=== PATIENT | male | born 1965 | race Caucasian/White ===

== ENCOUNTER 2017-01-22 22:57 | Inpatient (IN) | payer MEDICARE, MEDICAID ==
[~2017-01-22] VITALS: Ht 180.3 cm; Wt 206.5 kg
--- NOTE | ~2017-01-22 | PR ---
[place], [place] PROGRESS NOTE NAME: RUTHIE MONTELONGO SR UNIT #: [id number] ROOM: 416 DOCTOR: JANA ALBERTO MD BIRTHDATE: [birth year] DOS: 01/24/2017 PULMONARY PROGRESS NOTE SUBJECTIVE: The patient has been doing better for the past 24 hours. The shortness of breath has been improving. The edema of the lower extremity was resolving. There were no symptoms of chest pain or any acute abdominal pain. The patient has been using the BiPAP. OBJECTIVE: VITAL SIGNS: Normal temperature, respiratory rate 18, heart rate 74, blood pressure 106/54-113/61. HEENT: Showed no new change. NECK: Supple. CARDIOVASCULAR: S1, S2 audible. LUNGS: Noted without any wheezing or crackles at the present time. The breaths are noted generally diminished bilaterally. ABDOMEN: Soft, nontender. EXTREMITIES: Shows resolving edema of the lower extremities. LABORATORY DATA: CBC: WBC count 19.1. Remaining CBC was normal. The BMP of patient this morning noted, glucose 172, carbon dioxide 34, remaining BMP was normal. IMPRESSION: 1. The patient with improvement has been continued for acute exacerbation of chronic obstructive pulmonary disease and acute bronchitis at the present time. 2. Improving acute hypercapnic and hypoxic respiratory failure as well. 3. Acute bronchitis. 4. Suspected obstructive sleep apnea disorder with history of morbid obesity. PLAN OF TREATMENT: Reduce the Solu-Medrol dose for the patient from Solu-Medrol 60 mg q.8 hours to 40 mg b.i.d. and reassess the patient closely for any rebound of the symptoms. If the patient does well, might be considered for home discharge possibly tomorrow. The patient was encouraged to use the BiPAP. Other supportive therapy, plan and management as well. Usual care. [place], [place] PROGRESS NOTE NAME: RUTHIE MONTELONGO SR UNIT #: [id number] ROOM: 416 DOCTOR: JANA ALBERTO MD BIRTHDATE: [birth year] JANA WEBSTER MD CM:PNTRANS [id number] JANA GARZA MD 01/24/17 1206 interface
--- NOTE | ~2017-01-22 | PN ---
[place], [place] PROGRESS NOTE NAME: RUTHIE MONTELONGO SR UNIT #: [id number] ROOM: 416 DOCTOR: DINESH ESPINO MD BIRTHDATE: [birth year] DATE: 01/24/17 CARDIOLOGY FOLLOWUP NOTE REASON FOR VISIT: Atrial flutter. HISTORY OF PRESENT ILLNESS: The patient is feeling better. Denies any chest pain, occasionally wearing CPAP for his sleep apnea. No PND, no orthopnea. No nausea, vomiting, diarrhea. No headache, no dizziness. No hematuria, dysuria. No fever and chills. REVIEW OF SYSTEMS: Review of the 8 systems negative except as mentioned above. RHYTHM STRIPS: The patient was in sinus rhythm. PHYSICAL EXAMINATION: VITAL SIGNS: Blood pressure 104/55, pulse 73, respirations 20. GENERAL: Alert, comfortable, in no acute distress. HEENT: Pupils are round and equal. No jaundice. The patient is wearing CPAP. NECK: Supple. No distended neck veins. No carotid bruit. CHEST: Nontender. LUNGS: Few scattered rhonchi, but good air entry bilaterally. HEART: Regular rhythm, no S3, no palpable thrills. ABDOMEN: Morbidly obese, bowel sounds normal. EXTREMITIES: Showed 1-2+ pitting edema. Distal pulses are palpable. SKIN: Warm and dry. No cyanosis, no clubbing. RECTAL: Deferred. GENITOURINARY: Deferred. IMPRESSION: 1. Paroxysmal atrial fibrillation and atrial flutter, currently in sinus rhythm. 2. Chronic diastolic heart failure. 3. Chronic obstructive pulmonary disease exacerbation. 4. Morbid obesity. 5. Sleep apnea. RECOMMENDATIONS: 1. Blood pressure and heart rate are stable. 2. Continue his current cardiac medications. 3. Cardiology will see as needed. [place], [place] PROGRESS NOTE NAME: RUTHIE MONTELONGO SR UNIT #: [id number] ROOM: 416 DOCTOR: DINESH SEPINO MD BIRTHDATE: [birth year] DINESH ESPINO MD CM:PNTRANS [id number] DINESH ESPINO MD 01/25/17 6003 MAME [email or web address].R
--- NOTE | ~2017-01-22 | PN ---
[place], [place] PROGRESS NOTE NAME: RUTHIE MONTELONGO SR [id number] UNIT #: [id number] ROOM: 416 DOCTOR: JANA ALBERTO MD BIRTHDATE: [birth year] DATE: 01/25/17 PULMONARY PROGRESS NOTE SUBJECTIVE: He has been noted with further reduction and improvement of respiratory symptoms of coughing and shortness of breath was resolving. The edema of the lower extremity has been improving, but not completely resolved. Denies symptoms of chest pain. OBJECTIVE: VITAL SIGNS: Showed normal temperature, respiratory rate 20, heart rate 58-66, blood pressure 94/56-116/88. Pulse oxygen saturation on 3 liters nasal cannula 94% saturation. HEENT: Examination showed no new change. NECK: Supple and obese. CARDIOVASCULAR SYSTEM: S1, S2 audible. LUNGS: Moderate decreased breath sounds and mild expiratory wheezing. No crackles, rhonchi or wheezing. ABDOMEN: Soft, nontender. EXTREMITIES: Still shows mild edema. LABORATORY DATA: The BMP of the patient was noted with glucose of 179, BUN 24, creatinine was normal, carbon dioxide 34. CBC: WBC count 13.5, hemoglobin 15.2, hematocrit 48.4, platelet count 163,000. IMPRESSION: 1. The patient who has been currently noted with acute congestive heart failure for the patient, which is improving with improving acute exacerbation of chronic obstructive pulmonary disease as well. 2. Improving acute hypercapnic and hypoxic respiratory failure and acute bronchitis. PLAN OF TREATMENT: Continue diuretic, bronchodilators, oxygen supplementation, and corticosteroids. Discharge planning for the patient if need to be done, it would be done for home oxygen assessment if not done so previously. The patient need to be assessed for sleep apnea disorder as well. Other supportive therapy, plan of management to be continued. Usual care. JANA ALBERTO MD CM:PNTRANS [id number] JANA GARZA MD 01/29/17 1440 MAME [email or web address].R
--- NOTE | ~2017-01-22 | PN ---
[place], [place] PROGRESS NOTE NAME: RUTHIE MONTELONGO SR UNIT #: [id number] ROOM: 416 DOCTOR: DINESH ESPINO MD BIRTHDATE: [birth year] DATE: 01/24/17 CARDIOLOGY FOLLOWUP NOTE REASON FOR VISIT: Atrial flutter. HISTORY OF PRESENT ILLNESS: The patient is feeling better. Denies any chest pain, occasionally wearing CPAP for his sleep apnea. No PND, no orthopnea. No nausea, vomiting, diarrhea. No headache, no dizziness. No hematuria, dysuria. No fever and chills. REVIEW OF SYSTEMS: Review of the 8 systems negative except as mentioned above. RHYTHM STRIPS: The patient was in sinus rhythm. PHYSICAL EXAMINATION: VITAL SIGNS: Blood pressure 104/55, pulse 73, respirations 20. GENERAL: Alert, comfortable, in no acute distress. HEENT: Pupils are round and equal. No jaundice. The patient is wearing CPAP. NECK: Supple. No distended neck veins. No carotid bruit. CHEST: Nontender. LUNGS: Few scattered rhonchi, but good air entry bilaterally. HEART: Regular rhythm, no S3, no palpable thrills. ABDOMEN: Morbidly obese, bowel sounds normal. EXTREMITIES: Showed 1-2+ pitting edema. Distal pulses are palpable. SKIN: Warm and dry. No cyanosis, no clubbing. RECTAL: Deferred. GENITOURINARY: Deferred. IMPRESSION: 1. Paroxysmal atrial fibrillation and atrial flutter, currently in sinus rhythm. 2. Chronic diastolic heart failure. 3. Chronic obstructive pulmonary disease exacerbation. 4. Morbid obesity. 5. Sleep apnea. RECOMMENDATIONS: 1. Blood pressure and heart rate are stable. 2. Continue his current cardiac medications. 3. Cardiology will see as needed. [place], [place] PROGRESS NOTE NAME: RUTHIE MONTELONGO SR UNIT #: [id number] ROOM: 416 DOCTOR: DINESH ESPINO MD BIRTHDATE: [birth year] DINESH ESPINO MD CM:PNTRANS [id number] DINESH ESPINO MD 01/29/17 1442 MAME [email or web address].R
--- NOTE | ~2017-01-22 | CON ---
[place], [place] REPORT OF CONSULTATION NAME: RUTHIE MONTELONGO SR [id number] UNIT #: [id number] ROOM: 416 DOCTOR: JANA ALBERTO MD BIRTHDATE: [birth year] DOS: 01/23/2017 PULMONARY CONSULTATION EVALUATION AND MANAGEMENT REASON FOR CONSULTATION: To assess the patient for ongoing acute exacerbation of COPD with acute respiratory failure. HISTORY OF PRESENT ILLNESS: This is a 51-year-old male who has been admitted to the hospital under care of hospitalist service for this morning. The patient has been admitted to the hospital and with reported symptoms of having increased symptoms of shortness of breath for this patient occurring for the past couple of days. The symptoms were associated with significant chest tightness. Shortness of breath was occurring at rest as well. The patient denies any symptoms of fever or chills. He does complain of symptoms of significant wheezing occurred with this current symptom. The patient has been currently admitted to the hospital and has been managed for the current treatment of acute exacerbation of COPD. REVIEW OF SYSTEMS: For this patient was noted as, CONSTITUTIONAL SYMPTOMS: He does complain of symptoms of fatigue and tiredness. Denies symptoms of fever or chills. EYES: Denies any burning, redness, or tenderness. EARS, NOSE, THROAT SYMPTOMS: No sore throat, hoarseness, otalgia, or postnasal drainage. CARDIOVASCULAR SYSTEM: The patient was noted with chronic edema of the lower extremities. Denies any anginal pain or other palpitations. GASTROINTESTINAL SYMPTOMS: Denies dysphagia, nausea, vomiting, diarrhea, abdominal pain, hematemesis, or melena. MUSCULOSKELETAL: Denies acute joint pain, redness, or tenderness. SKIN: Denies any lesions or rashes. CENTRAL NERVOUS SYSTEM: No dizziness, headache, diplopia, syncopal episode, seizures or tingling sensation of the extremities. Remaining systems were reviewed with the patient, they were noted all negative. PAST MEDICAL HISTORY: The patient was known with history of, 1. History of centrilobular emphysema. 2. History of uncomplicated moderate persistent bronchial asthma. 3. History of chronic severe morbid obesity. 4. Chronic hypoxic respiratory failure with the dependency on oxygen. 5. Atrial fibrillation with anticoagulation and acute congestive heart failure with diastolic dysfunction. 6. Hypertriglyceridemia. 7. Hypercholesterolemia back. SURGICAL HISTORY: Noted with history of tonsillectomy as a child. 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 Denies any history of chronic alcohol dependence. He does have 3 children. Smoking was noted for the patient since teenager about [age] [place], [place] REPORT OF CONSULTATION NAME: RUTHIE MONTELONGO SR UNIT #: [id number] ROOM: 416 DOCTOR: JANA ALBERTO MD BIRTHDATE: [birth year] packs of cigarettes per day and stated that he has not been smoking cigarettes a week ago. FAMILY HISTORY: The patient was noted with history of cancer of the throat in the father and some kind of cancer in the mother has been known previously. Both parents have been . MEDICATIONS: The current administered medications for the patient noted as use of Lipitor, Cardizem, Coreg, Effexor, Dulera, Protonix, Eliquis, Lasix intravenously 40 mg b.i.d., Spiriva, DuoNeb, Solu-Medrol 60 mg every 8 hours, Cardizem drip for this patient's atrial fibrillation with rapid ventricular response management, Levaquin, and other p.r.n. medications administration. DRUG ALLERGY HISTORY: The patient was noted as no known drug allergies. PHYSICAL EXAMINATION: GENERAL: This is a 51-year-old male who has been currently noted to be awake and alert using the oxygen supplementation nasal cannula, has used the BiPAP earlier. His height was recorded by the nursing staff at the time of the current admission with height of 5 feet 11 inches, weight of 452 pounds, BMI 63. VITAL SIGNS: Blood pressure of the patient was recorded as 150/72-112/65. Heart rate of the patient was recorded as highest of beats per minute atrial fibrillation, currently noted 73. Temperature 98.3 degrees Fahrenheit to 100 degrees Fahrenheit. Respiratory rate recorded is 16-30. The intake for the patient is 990 mL, output 450 mL since admission. Pulse ox saturation on 4 liters nasal cannula 96% saturation recorded. HEENT: Examination shows head was atraumatic. Eyes nonicterus. Chronic obesity. NECK: Supple. Severe reduced posterior pharyngeal space. CARDIOVASCULAR SYSTEM: S1, S2 audible. LUNGS: The patient was noted without any crackles. Diffuse expiratory wheezing was present. ABDOMEN: Noted soft with severe morbid obesity. EXTREMITIES: Shows edema 2+ of the lower extremities. LABORATORY DATA: PT/INR for the patient 01/22 was normal. The chest x-ray 1 view limited study for the patient because of large body habitus, noted small bilateral pleural fluid, basilar areas of atelectasis suspected. CMP of 01/22 on admission for the patient in the Emergency Room, glucose 212, remaining CMP was normal. CK-MB and troponin for this patient, which were done for the patient yesterday and this morning so far noted normal results. The INR this morning noted normal. CBC this morning, WBC count 20.5, hemoglobin, hematocrit and platelet count was normal. Chest x-ray which was repeated again, 1 view for the patient this morning was noted with resolution of the current pleural fluid, basilar areas of atelectasis. Arterial blood gas for the patient that was done for this patient this morning for the patient shows pH of 7.41, pCO2 of 44, pO2 of 58.1. IMPRESSION: 1. The patient who has been currently admitted to the hospital with acute [place], [place] REPORT OF CONSULTATION NAME: RUTHIE MONTELONGO SR UNIT #: [id number] ROOM: [facility] DOCTOR: ELEANOR GARZA [facility] BIRTHDATE: [birth year] hypoxic respiratory failure, chronic hypoxic respiratory failure and acute congestive heart failure for the patient with atrial fibrillation and rapid ventricular response. 2. Acute exacerbation of chronic obstructive pulmonary disease for the patient was also noted concomitantly. 3. Chronic anticoagulation. 4. Atrial fibrillation with rapid ventricular response. 5. History of congestive heart failure with diastolic dysfunction. 6. Chronic heavy nicotine dependence. 7. Clinical suspicion of obstructive sleep apnea disorder, would be requiring further assessment. PLAN OF TREATMENT: The patient will be continued on the current plan of management at this time as ongoing. Solu-Medrol dose will be continued the same at this time. Bronchodilator for the patient will be changed from the DuoNeb for this patient to albuterol sulfate because of the use of the concomitant Spiriva inhaler to prevent any drug interaction. Continue medical management of atrial fibrillation with rapid ventricular response for the patient with intravenous Cardizem and other medications intake. Usual care, other supportive plan of management. Supportive care, other therapy, plan of treatment. DVT prophylaxis will be continued with the use of the Eliquis. The patient was encouraged to continue to remain free of any tobacco use in future as well. Sputum for Gram stain and culture could be done if the patient is able to expectorate any sputum. Thanks for allowing me to participate in the care of this patient. JANA WEBSTER MD CM:CONSTR:REPORT OF CONSULTATION 1223 01/24/17 0129 interface
[~2017-01-22 22:57] MED LIST: .; ALBUTEROL2.5 MG/0.5 INH; ARICEPT10 M1 PO; ARTIFICIAL TEAR15 ML OP; ASPIRIN81 M1 PO; ATORVASTATIN CALCIUM PO; B12,B-12,B 12500 MC1 PO; BACTRIM DS 8001 TA1 PO; CIPRO500 MG PO; COLACE-T100 MG PO; COLACE100 MG PO; COREG25 MG PO; COREG3.125 MG PO; CORTISPORIN 1%-10 M1 OT; COUMADIN PO; CRESTOR20 M1 PO; CRESTOR20 MG; CRESTOR20 MG PO; CUBICIN500 MG IV; Coumadin10 MG PO; DILTIAZEM HYDR300 MG PO; DOXYCYCLINE100 M3 PO; EFFEXOR-XR75 MG PO; ELIQUIS5 M1 PO; FLEXERIL5 MG PO; FOLIC ACID1 MG PO; GUAFENESIN400 MG PO; HYDROCODONE BIT1 T11 PO; HYDROCODONE BIT1 T28 PO; KLOR-CON M2020 ME1 PO; LASIX40 MG PO; LEVAQUIN750 M1 PO; LISINOPRIL5 MG PO; LUBRICATING TP; MEDROL DOSEPAK4 MG PO; MUCINEX ER600 MG PO; MUCUS RELIEF400 MG PO; NAPROSYN500 MG PO; NATURE'S BLEND F1 MG PO; NYSTATIN OINTME30 GM T; OMEPRAZOLE20 MG PO; OXYGEN NAS; POTASSIUM CHLO10 ME3 PO; POTASSIUM CHLO20 ME3 PO; POTASSIUM20 MEQ PO; PREDNISONE10 MG PO; PREDNISONE20 M1 PO; PRILOSEC40 M1 PO; PRILOSEC40 MG PO; SYMBICORT1 AER IH; VENLAFAXINE37.5 M1 PO; VENLAFAXINE37.5 MG PO; VIAGRA100 MG PO; VIAGRA50 MG PO; VICO75300 PO; VICODIN 500 MG-1 TAB PO; VITAMIN D5000 IU PO; Ventolin 02.5 MG/3 M INH; ZANTAC150 MG PO
[2017-01-22 23:01] VITALS: BP 120/62
[2017-01-22] MEDS ORDERED: LIPITOR80 MG PO (23:08)
[2017-01-22] MEDS ORDERED: SPIRIVA18 MCG PO (23:13)
[2017-01-22] MEDS ORDERED: LOTRIMIN 1%15 GM T (23:15)
[2017-01-23] VITALS (14 sets, daily range): BP systolic 108–171; BP diastolic 47–112
[2017-01-23 00:02] LABS: BASO # 0.1 10*3/uL (0.0-0.1); BASO % 0.4 % (0.0-1.0); EOS % 0.1 % (1.0-4.0); HEMATOCRIT 50.5 % (42.0-52.0); HEMOGLOBIN 16.2 g/dl (14.0-18.0); IG # 0.3 10*3/uL (0.0-0.1); LYMPH # 0.8 10*3/uL (1.3-4.4); LYMPH % 3.9 % (27.0-41.0); MEAN CELL VOLUME 91.3 fl (80.0-94.0); MEAN CORPUSCULAR HGB 29.3 pg (27.0-31.0); MEAN CORPUSCULAR HGB CONC 32.1 g/dl (33.0-37.0); MEAN PLATELET VOLUME 10.9 fl (9.6-12.3); MONO % 5.3 % (3.0-9.0); NEUT # 17.4 10*3/uL (2.3-7.9); PLATELET COUNT AUTOMATED 152 10*3/uL (130-400); RED BLOOD COUNT 5.53 10*6/uL (4.50-5.90); RED CELL DISTRI WIDTH 13.2 % (0-14.5); WHITE BLOOD COUNT 19.5 10*3/uL (4.8-10.8)
[2017-01-23 00:15] LABS: INTERNATIONAL NORM RATIO 1.1 (2.0-3.5); PROTHROMBIN TIME 11.3 SECONDS (9.0-12.4)
[2017-01-23 00:57] LABS: ALBUMIN 3.2 gm/dl (3.1-4.5); ALKALINE PHOSPHATASE 109 U/L (45-117); BILIRUBIN, TOTAL 0.7 mg/dl (0.2-1.0); BUN 11 mg/dl (7-24); CARBON DIOXIDE 27 mmol/L (21-32); CHLORIDE 102 mmol/L (98-107); EST GLOM FILT AFRICAN AMERICAN > 60 ml/min; GLUCOSE 212 mg/dL (65-99); MAGNESIUM 1.8 mg/dL (1.5-2.1); POTASSIUM 3.9 mmol/L (3.5-5.1); SGOT/AST 23 IU/L (3-35); SGPT/ALT 34 U/L (12-78); SODIUM 139 mmol/L (136-145); TOTAL PROTEIN 6.6 gm/dL (6.4-8.2)
[2017-01-23 00:58] LABS: TROPONIN I 0.015 ng/ml (<0.045)
[2017-01-23 01:18] LABS: ABG BASE EXCESS 3.1 mmol/L (-2.0-2.0); ABG CO2 CONTENT 29.3 mmol/L (23-27); ABG HCO3 27.9 mmol/l (22-26); ARTERIAL BLOOD GAS PH 7.417 (7.35-7.45); ARTERIAL BLOOD GAS PO2 58.1 mmHg (80-90)
[2017-01-23] MEDS ORDERED: Lasix80 MG PO (02:50)
[2017-01-23] MEDS ORDERED: SYMBICORT1 AE1 INH (04:19)
[2017-01-23 05:36] LABS: HEMATOCRIT 51.5 % (42.0-52.0); HEMOGLOBIN 16.3 g/dl (14.0-18.0); MEAN CELL VOLUME 92.3 fl (80.0-94.0); MEAN CORPUSCULAR HGB 29.2 pg (27.0-31.0); MEAN CORPUSCULAR HGB CONC 31.7 g/dl (33.0-37.0); MEAN PLATELET VOLUME 10.9 fl (9.6-12.3); PLATELET COUNT AUTOMATED 165 10*3/uL (130-400); RED BLOOD COUNT 5.58 10*6/uL (4.50-5.90); RED CELL DISTRI WIDTH 13.2 % (0-14.5); WHITE BLOOD COUNT 20.5 10*3/uL (4.8-10.8)
[2017-01-23 05:39] LABS: CKMB 1.9 ng/ml (0.5-3.6); CPK 155 U/L (39-308); TROPONIN I < 0.015 ng/ml (<0.045)
[2017-01-23 05:58] LABS: ALBUMIN 3.2 gm/dl (3.1-4.5); BILIRUBIN, TOTAL 0.8 mg/dl (0.2-1.0); BUN 12 mg/dl (7-24); CARBON DIOXIDE 29 mmol/L (21-32); CHLORIDE 101 mmol/L (98-107); GLUCOSE 199 mg/dL (65-99); MAGNESIUM 1.9 mg/dL (1.5-2.1); POTASSIUM 3.9 mmol/L (3.5-5.1); SODIUM 139 mmol/L (136-145)
[2017-01-23 06:01] LABS: HEMOGLOBIN A1c 6.4 % (4.8-5.6)
[2017-01-23 06:07] LABS: ALKALINE PHOSPHATASE 107 U/L (45-117); CHOLESTEROL 129 mg/dL (<200); EST GLOM FILT AFRICAN AMERICAN > 60 ml/min; FREE T4 1.04 ng/dl (0.76-1.46); HDL CHOLESTEROL 36 mg/dl (40-60); LDL CHOLESTEROL 77 mg/dL (9-159); PHOSPHOROUS 2.2 mg/dL (2.5-4.9); SGOT/AST 21 IU/L (3-35); SGPT/ALT 33 U/L (12-78); THYROID STIM HORMONE (HS) 0.786 uIU/ml (0.358-4.75); TRIGLYCERIDES 78 mg/dl (<150); VLDL CHOLESTEROL 16 mg/dL (6-40)
[2017-01-23 06:18] LABS: INTERNATIONAL NORM RATIO 1.1 (2.0-3.5); PROTHROMBIN TIME 11.6 SECONDS (9.0-12.4)
[2017-01-23 06:40] LABS: BASOPHIL # 0.2 10*3/uL (0-0.1); BASOPHILS 1 % (0-1); LYMPHOCYTE # 0.8 10*3/uL (1.3-4.4); MONOCYTE # 0.6 10*3/uL (0.1-1.0); NEUTROPHIL # 18.9 10*3/uL (2.3-7.9); NEUTROPHILS 92 % (47-73); PLATELET SUFFICIENCY NORMAL (NORMAL); TOTAL CELLS COUNTED 100 #CELLS
[2017-01-23 07:11] LABS: FOLIC ACID 9.41 ng/mL (>5.38)
[2017-01-23 12:10] LABS: CPK 180 U/L (39-308)
[2017-01-23 12:17] LABS: TROPONIN I < 0.015 ng/ml (<0.045)
[2017-01-23 18:31] LABS: CPK 225 U/L (39-308)
[2017-01-23 18:32] LABS: TROPONIN I < 0.015 ng/ml (<0.045)
[2017-01-24] VITALS: BP 113/61
[2017-01-24 06:06] LABS: BUN 21 mg/dl (7-24); CARBON DIOXIDE 34 mmol/L (21-32); CHLORIDE 102 mmol/L (98-107); EST GLOM FILT AFRICAN AMERICAN > 60 ml/min; GLUCOSE 172 mg/dL (65-99); PHOSPHOROUS 3.2 mg/dL (2.5-4.9); POTASSIUM 4.1 mmol/L (3.5-5.1); SODIUM 142 mmol/L (136-145)
[2017-01-24 06:10] LABS: BASO % 0.1 % (0.0-1.0); HEMATOCRIT 47.5 % (42.0-52.0); HEMOGLOBIN 14.8 g/dl (14.0-18.0); IG # 0.1 10*3/uL (0.0-0.1); LYMPH # 1.3 10*3/uL (1.3-4.4); LYMPH % 6.9 % (27.0-41.0); MEAN CELL VOLUME 93.5 fl (80.0-94.0); MEAN CORPUSCULAR HGB 29.1 pg (27.0-31.0); MEAN CORPUSCULAR HGB CONC 31.2 g/dl (33.0-37.0); MEAN PLATELET VOLUME 11.4 fl (9.6-12.3); MONO # 1.5 10*3/uL (0.1-1.0); MONO % 7.6 % (3.0-9.0); NEUT # 16.2 10*3/uL (2.3-7.9); NEUT % 84.7 % (47.0-73.0); PLATELET COUNT AUTOMATED 166 10*3/uL (130-400); RED BLOOD COUNT 5.08 10*6/uL (4.50-5.90); RED CELL DISTRI WIDTH 13.4 % (0-14.5); WHITE BLOOD COUNT 19.1 10*3/uL (4.8-10.8)
[2017-01-24 08:00] VITALS: BP 106/54
[2017-01-24 12:00] VITALS: BP 104/55
[2017-01-24 16:00] VITALS: BP 116/48
[2017-01-24 20:00] VITALS: BP 103/53
[2017-01-25] VITALS: BP 94/56
[2017-01-25 06:20] LABS: BASO % 0.1 % (0.0-1.0); HEMATOCRIT 48.4 % (42.0-52.0); HEMOGLOBIN 15.2 g/dl (14.0-18.0); IG # 0.1 10*3/uL (0.0-0.1); LYMPH # 1.2 10*3/uL (1.3-4.4); MEAN CELL VOLUME 93.8 fl (80.0-94.0); MEAN CORPUSCULAR HGB 29.5 pg (27.0-31.0); MEAN CORPUSCULAR HGB CONC 31.4 g/dl (33.0-37.0); MEAN PLATELET VOLUME 11.5 fl (9.6-12.3); MONO # 0.5 10*3/uL (0.1-1.0); MONO % 3.8 % (3.0-9.0); NEUT # 11.7 10*3/uL (2.3-7.9); NEUT % 86.5 % (47.0-73.0); PLATELET COUNT AUTOMATED 163 10*3/uL (130-400); RED BLOOD COUNT 5.16 10*6/uL (4.50-5.90); RED CELL DISTRI WIDTH 13.6 % (0-14.5); WHITE BLOOD COUNT 13.5 10*3/uL (4.8-10.8)
[2017-01-25 06:50] LABS: BUN 24 mg/dl (7-24); CARBON DIOXIDE 36 mmol/L (21-32); CHLORIDE 100 mmol/L (98-107); EST GLOM FILT AFRICAN AMERICAN > 60 ml/min; GLUCOSE 179 mg/dL (65-99); POTASSIUM 4.3 mmol/L (3.5-5.1); SODIUM 140 mmol/L (136-145)
[2017-01-25 08:00] VITALS: BP 116/68
[2017-01-25 12:00] VITALS: BP 107/69
[2017-01-25] MEDS ORDERED: ALBUTEROL SULF0.5 M1 NEB ×2 (14:11→14:12)
[2017-01-25] MEDS ORDERED: LEVAQUIN500 M2 PO (14:11)
[2017-01-25] MEDS ORDERED: ATROVENT I0.5 MG/2.1 INH (14:11)
[2017-01-25] MEDS ORDERED: B12100 MC1 PO (14:11)
[2017-01-25] MEDS ORDERED: PREDNISONE10 MG PO (14:11)
[2017-01-25] MEDS ORDERED: DILTIAZEM HYDR180 M2 PO (14:11)
== END 2017-01-25 14:55 | disposition home or self-care (01) | DRG 871 ==
LOC: ED 22:57 → EDHOLD 01-23 01:40 → ICCU 01-23 01:40 → 4E 01-23 01:40 → ICCU 01-23 01:52 → 4E 01-23 15:38
PROVIDERS: Emergency Medicine Emergency Medical Services; Internal Medicine; Internal Medicine Hospice and Palliative Medicine; Student in an Organized Health Care Education/Training Program
PROC: 5A09357 Assistance with Respiratory Ventilation, Less than 24 Consecutive Hours, Continuous Positive Airway Pressure (ICD-10-PCS; principal; 2017-01-23)
DX: A41.9 Sepsis, unspecified organism (principal); J18.9 Pneumonia, unspecified organism; J96.21 Acute and chronic respiratory failure with hypoxia; I11.0 Hypertensive heart disease with heart failure; D68.59 Other primary thrombophilia; I48.92 Unspecified atrial flutter; I50.32 Chronic diastolic (congestive) heart failure; Z68.43 Body mass index [BMI] 50.0-59.9, adult; J44.0 Chronic obstructive pulmonary disease with (acute) lower respiratory infection; J44.1 Chronic obstructive pulmonary disease with (acute) exacerbation; R73.9 Hyperglycemia, unspecified; G89.29 Other chronic pain; M54.9 Dorsalgia, unspecified; E78.00 Pure hypercholesterolemia, unspecified; G47.33 Obstructive sleep apnea (adult) (pediatric); I48.0 Paroxysmal atrial fibrillation; F17.210 Nicotine dependence, cigarettes, uncomplicated; Z80.41 Family history of malignant neoplasm of ovary; Z80.0 Family history of malignant neoplasm of digestive organs; E66.01 Morbid (severe) obesity due to excess calories; Z99.81 Dependence on supplemental oxygen; J20.9 Acute bronchitis, unspecified; G51.0 Bell's palsy; E53.8 Deficiency of other specified B group vitamins; Z71.6 Tobacco abuse counseling

== ENCOUNTER → 2017-02-27 | Outpatient (CLI) | payer OTHER, MEDICARE, MEDICAID ==
[~2017-02-27] MED LIST changes: +ALBUTEROL SULF0.5 M1 NEB; +ATROVENT I0.5 MG/2.1 INH; +B12100 MC1 PO; +DILTIAZEM HYDR180 M2 PO; +LEVAQUIN500 M2 PO; +LIPITOR80 MG PO; +LOTRIMIN 1%15 GM T; +Lasix80 MG PO; +SPIRIVA18 MCG PO; +SYMBICORT1 AE1 INH
== END ==
LOC: US 07:30
DX: I71.4 Abdominal aortic aneurysm, without rupture (principal)

== ENCOUNTER → 2017-03-14 | Outpatient (CLI) | payer MEDICARE, MEDICAID | END | disposition home or self-care (01) | LOC: RESCLI 02:26 | DX: I11.0 Hypertensive heart disease with heart failure (principal); J44.9 Chronic obstructive pulmonary disease, unspecified; I50.30 Unspecified diastolic (congestive) heart failure; E53.8 Deficiency of other specified B group vitamins; E66.09 Other obesity due to excess calories; R26.89 Other abnormalities of gait and mobility; J84.10 Pulmonary fibrosis, unspecified; J43.8 Other emphysema; M54.5 Low back pain; M19.90 Unspecified osteoarthritis, unspecified site; G89.29 Other chronic pain; Z68.44 Body mass index [BMI] 60.0-69.9, adult; Z99.81 Dependence on supplemental oxygen ==

== ENCOUNTER → 2017-05-03 | Outpatient (CLI) | payer MEDICARE, MEDICAID | END | disposition home or self-care (01) | LOC: CP 00:09 | DX: J44.9 Chronic obstructive pulmonary disease, unspecified (principal) ==

== ENCOUNTER 2017-07-22 13:39 | Inpatient (IN) | payer OTHER ==
[~2017-07-22] VITALS: Ht 182.8 cm; Wt 209.2 kg
--- NOTE | ~2017-07-22 | CON ---
[place], [place] REPORT OF CONSULTATION NAME: RUTHIE MONTELONGO SR [facility] #: [id number] UNIT #: [id number] ROOM: 416 DOCTOR: JANA ALBERTO MD BIRTHDATE: [birth year] DOS: 07/23/2017 REASON FOR CONSULTATION: Assess the patient's acute respiratory failure. HISTORY OF PRESENT ILLNESS: This is a 52-year-old white male known to me from the past with history of COPD, hypoxic respiratory failure, obstructive sleep apnea disorder and hypercapnia. The patient presented to the hospital, the patient stated that he has developed pain which were described in the left breast area radiating upward towards the shoulder. The pain was described [id number], he was concerned about that. The patient stated that he used to chronic wheezing, which has been present for this patient as well along with the current symptoms. He does have a cough without any sputum expectoration. The patient denies symptoms of hemoptysis. He has been currently treated for the exacerbation of COPD and other medical problem on this admission since 07/22/2017. REVIEW OF SYSTEMS: CONSTITUTIONAL: Fatigue and tiredness were described without any symptoms of fever or chills. EYES: Denies any burning, redness, or tenderness. EARS, NOSE, THROAT: No sore throat, hoarseness, otalgia, postnasal drainage or epistaxis. CARDIOVASCULAR: Denies anginal pain or others noted history of chronic intermittent edema of the lower extremity, which has been noted in the past when appeared to be severe. GASTROINTESTINAL: Severe morbid obesity without any abnormal weight loss, dysphagia, nausea, vomiting, diarrhea, abdominal pain, hematemesis, melena, or hematochezia. SKIN: Denies any lesions or rashes. Chronic venous stasis pigmentation as well of the lower extremities. GENITOURINARY: Denies dysuria, suprapubic pain, hematuria. MUSCULOSKELETAL: Chronic pain for this patient without any acute redness or tenderness, any joints described. CENTRAL NERVOUS SYSTEM: Denies dizziness, headache, diplopia or syncopal episodes. Remaining systems were reviewed with the patient, they were noted all negative. PAST MEDICAL HISTORY: Noted from last hospitalization in 01/2017 for the medical management of acute exacerbation of COPD, respiratory failure and other problems. 1. Severe centrilobular emphysema and acute chronic hypercapnic and hypoxic respiratory failure. 2. Obstructive sleep apnea disorder. 3. Congestive heart failure, diastolic dysfunction. 4. Noncompliance with the treatment of chronic nicotine dependence. 5. History of uncomplicated moderate persistent bronchial asthma. 6. Atrial fibrillation for this patient as well. 7. Hyperlipidemia. 8. Intervertebral disk disease of the lower back as well. [place], [place] REPORT OF CONSULTATION NAME: RUTHIE MONTELONGO SR UNIT #: [id number] ROOM: 416 DOCTOR: JANA ALBERTO MD BIRTHDATE: [birth year] PAST SURGICAL HISTORY: Tonsillectomy. SOCIAL HISTORY: The patient is . 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 Denies history of alcohol use or illicit drugs. The patient has 3 children. Smoking was noted since age of 14 or 15 and smoked up to 4 packs of cigarettes per day, stating he has been currently smoking about a pack of cigarettes per day. FAMILY HISTORY: Noted with father from complication related to the throat cancer. Mother also from some unknown kind of cancer. MEDICATIONS: The current administered medications noted: 1. ____ nicotrol inhaler. 2. Eliquis 5 mg b.i.d. 3. Mucinex 1200 mg b.i.d. 4. Solu-Medrol 60 mg q. 8 hours. 5. DuoNeb q. 4 hours while awake. 6. Levaquin 750 mg IV daily. Other p.r.n. medications also administered. DRUG ALLERGIES: No known drug allergies. PHYSICAL EXAMINATION: GENERAL: This is a 52-year-old white male who has been currently sitting on side of the bed. Using oxygen supplementation with the nasal cannula. VITAL SIGNS: The patient's height was recorded by the nursing staff as 6 feet, weight of 460 pounds, BMI greater than 60. Normal temperature since admission, respiratory rate 20-26, heart rate of 105-132 with atrial fibrillation, rapid ventricular response, blood pressure 156/80-109/61. The intake is 3020 mL, output 1200 mL, positive 1.812 liters. Pulse ox saturation on 3 liters nasal cannula was 92% on admission on room air 86% saturation. HEENT: Severe obesity for this patient noted neck was supple. Severe reduced posterior pharyngeal space, high tongue base and crowding of soft tissue structures. NECK: Supple and obese. CARDIOVASCULAR SYSTEM: S1, S2 is audible. LUNGS: The patient noted with generalized reduction of the breath sounds was noted bilaterally with expiratory wheezing. No crackles. ABDOMEN: Noted severe morbid obesity. EXTREMITIES: Shows chronic edema, which appeared to be lymphedema of the lower extremity, possibly superimposed acute edema cannot be excluded. Visible skin shows venous stasis pigmentation of the lower extremities. No abnormal lesions or ulcers. CENTRAL NERVOUS SYSTEM: Cranial nerves 2-12 intact. MUSCULOSKELETAL: No acute deformities. LABORATORY DATA: CBC of 07/22/2017, WBC count 12.2, hemoglobin 17, hematocrit 55.1, platelet count was normal. PT/PTT was noted as normal. PT/PTT LDH was noted 2.2. LDH were noted elevated up to 4.2 and then 3.2. CMP for this patient, which was noted on 07/22/2017 showed glucose 148, BUN and creatinine [place], [place] REPORT OF CONSULTATION NAME: RUTHIE MONTELONGO SR UNIT #: [id number] ROOM: 416 DOCTOR: ELEANOR GARZA MD,JANA BIRTHDATE: [birth year] were normal. CO2 of 33. Alkaline phosphatase 134. ProBNP is 620. CBC on 07/23/2017 shows hemoglobin 16, hematocrit 52.3, platelet count normal. WBC count normal. PT/PTT today was normal. CMP this morning glucose 317, BUN and creatinine was normal. Phosphorus 2.4. Arterial blood gas on 3 liters, pH of 7.34, pCO2 of 54, pO2 of 65.5. The chest x-ray one-view for the patient that was a limited study because of large body habitus, was noted without any gross pulmonary infiltration. IMPRESSION: 1. The patient will be currently admitted to the hospital noted with acute severe hypercapnic hypoxic respiratory failure, chronic hypercapnia and hypoxia. 2. Acute severe exacerbation of chronic obstructive pulmonary disease. 3. Lactic acidosis may be related to use of the bronchodilators as well. 4. The patient with edema, which has ____ been noted chronic lymphedema of the lower extremities as well. 5. History of noncompliance and chronic nicotine dependence as well. Use of oxygen remained high risk of injury with fire because of the use of tobacco products and oxygen. 6. Morbid obesity. 7. Obesity hypoventilation syndrome. The patient would be considered with obstructive sleep apnea disorder, which has been already diagnosed. 8. Acute bronchitis. The patient noted may be viral in origin as well. 9. Pain in the left chest. The patient appeared to be musculoskeletal. Cardiac enzyme and other markers still far noted negative, not suggestive of any myocardial infarction. PLAN OF MANAGEMENT: Avoid any excessive fluid administration for this patient as well. Consider diuretic therapy to improve the edema of lower extremities. Obtain a venous Doppler of the lower extremities to rule out deep venous thrombosis as well. The patient will be ordered the BiPAP from the hospital and we will be asking the patient to refrain from using his own CPAP from home, which is not effective. He is already getting the Nicotrol to overcome nicotine withdrawal symptoms with history of chronic nicotine dependence. Supportive therapy, plan of management and care. In addition, treatment changes to be made in the management of the patient based on progression of the illness. Thank you for allowing me to participate in the care of this patient. JANA WEBSTER MD CM:CONSTR:REPORT OF CONSULTATION 1104 07/24/17 0417 interface
--- NOTE | ~2017-07-22 | EKG ---
[place], [place] ELECTROCARDIOGRAM REPORT NAME: RUTHIE MONTELONGO SR UNIT #: [id number] ROOM: 416 DOCTOR: ELEANOR GARZA MD,JANA BIRTHDATE: [birth year] DOS: 07/22/2017 ELECTROCARDIOGRAM REPORT TIME: 1:42 p.m. The underlying rhythm noted atrial fibrillation/atrial flutter for the patient with a rapid ventricular response with heart rate of 112 beats per minute. Prolongation of the QTc interval was also noted in the patient most likely related to the medications. JANA WEBSTER MD CM:EKGRPT:ELECTROCARDIOGRAM REPORT 25 48 JANA GARZA MD
--- NOTE | ~2017-07-22 | PR ---
[place], [place] PROGRESS NOTE NAME: RUTHIE MONTELONGO SR [facility] #: [id number] UNIT #: [id number] ROOM: 416 DOCTOR: ELEANOR GARZA MD,JANA BIRTHDATE: [birth year] DOS: 07/25/2017 SUBJECTIVE: He has been doing very well at this time with current medical management. Shortness of breath of the patient has been improving. There were no symptoms of chest pain or any abdominal pain. OBJECTIVE: VITAL SIGNS: For the patient which were recorded. The patient showed the temperature noted normal, respiratory rate 20, heart rate 95, blood pressure 118/78. The pulse oxygen saturation 3 liters nasal cannula 95% saturation. HEENT: Examination shows severe obesity. NECK: Supple. CARDIOVASCULAR: S1, S2 audible. LUNGS: Moderate decreased breath sounds without any wheezing or crackles. ABDOMEN: Soft, nontender. EXTREMITIES: Shows chronic lymphedema, remains unchanged. LABORATORY DATA: BMP of the patient was noted. BUN of 24, creatinine 1.43. Glucose 273. CBC: WBC count 13.9. Remaining CBC was normal. Stool for C. diff toxin was noted as negative. IMPRESSION: 1. Resolving acute exacerbation of chronic obstructive pulmonary disease, [id number] severe hypercapnic and hypoxic respiratory failure, chronic lymphedema. 2. Obstructive sleep apnea disorder. PLAN OF TREATMENT: From the pulmonary standpoint, the patient will be considered for home discharge whenever it is necessary. Solu-Medrol dose will be decreased to 40 mg Solu-Medrol daily from today. Other supportive therapy, plan of management as in progress. Usual care. JANA WEBSTER MD CM:PNTRANS 31 JANA GARZA MD 07/25/171930 interface
--- NOTE | ~2017-07-22 | PR ---
[place], [place] PROGRESS NOTE NAME: RUTHIE MONTELONGO SR [facility] #: [id number] UNIT #: [id number] ROOM: 416 DOCTOR: ELEANOR GARZA MD,JANA BIRTHDATE: [birth year] DOS: 07/24/2017 PULMONARY FOLLOWUP PROGRESS NOTE SUBJECTIVE: He has been noted comfortable at this time without any distress. He has used a BiPAP, which was ordered from the hospital for the patient at night. The shortness of breath has been noted partially decreased. There were no symptoms of chest pain or any abdominal pain. The cough has been noted for this patient without any sputum expectoration. OBJECTIVE: VITAL SIGNS: Temperature recorded normal this morning, respiratory rate 20, heart rate 60, blood pressure 118/80. HEENT: Showed no acute change. NECK: Supple. CARDIOVASCULAR: S1, S2 audible. LUNGS: Noted with general reduction in the breath sounds in the lungs bilaterally with moderate expiratory wheezing. There were no crackles. ABDOMEN: Soft. Obese, bowel sounds present. EXTREMITIES: Shows chronic lymphedema. LABORATORY DATA: CBC today: WBC count 13.3, remaining CBC was normal. BMP this morning, glucose 325, BUN and creatinine was normal. Remaining electrolytes were all noted normal. Ultrasound of bilateral lower extremities was completed yesterday that excluded any evidence of deep venous thrombosis. This study was noted limited because of the current large body habitus. IMPRESSION: 1. Acute on chronic hypercapnic hypoxic respiratory failure. 2. Acute exacerbation of chronic obstructive pulmonary disease at the present time. 3. Severe morbid obesity with obstructive sleep apnea disorder. 4. Noncompliance with this patient with chronic nicotine dependence. 5. Obesity hypoventilation syndrome. PLAN OF TREATMENT: Continuation of the bronchodilators, and oxygen supplementation. The dose of Solu-Medrol will be decreased at this time to 40 mg b.i.d. of Solu-Medrol from 60 mg q.8h. Gradual reduction of Solu-Medrol will be done for the patient and monitor the respiratory status. The patient is getting Lasix 80 mg in the morning and that will be continued by monitoring of the edema. The dose of the Lasix was changed from 40 mg to 80 mg daily by the primary care attending. Other supportive therapy, plan and management to be continued as well, monitoring of electrolytes, the patient with use of the diuretics. Fluid restriction was suggested. Continue the BiPAP for the patient from the hospital until his acute respiratory failure, started occurring prior to start using his own BiPAP from the home settings. [place], [place] PROGRESS NOTE NAME: RUTHIE MONTELONGO SR UNIT #: [id number] ROOM: [facility] DOCTOR: JANA ALBERTO MD BIRTHDATE: [birth year] JANA WEBSTER MD CM:PNTRANS 19 [phone] JANA GARZA MD 07/24/171954 interface
--- NOTE | ~2017-07-22 | CON ---
[place], [place] REPORT OF CONSULTATION NAME[id number] UN[facility] #: [id number] ROOM: 416 DOCTOR: RED ROSE MD BIRTHDATE: [birth year] DOS: 07/23/2017 HISTORY OF PRESENT ILLNESS: A 52-year-old patient who has presented with respiratory insufficiency, on CPAP and difficulty with breathing off previously, sleep apnea, super morbid obesity, weight of greater than 400, has been complaining that he has diarrhea. He is moving his bowels 2-4 times per day. He has not noticed blood in the stool. He has had a colonoscopy 2 years ago. I have been asked for assessment of the patient in this regard. Stool has been sent out for C. diff and ova and parasite; I am sure it is going to be returned back negative. White blood cell was 12, H and H of 17 and 55. INR was 1.1. Lactic acid 2.2. Comprehensive metabolic panel, electrolyte balanced, liver function tests normal, alkaline phosphatase 143. BNP of 620. Chest x-ray, single image of chest, clear lung view. Lactic acid 4.2, followup and subsequently 3.2. His diarrhea and irregularities of stool has been 6 months in duration. Hemoglobin A1c 6.5. Otherwise, laboratory values have been repeatedly reassessed and they are within frames of presentation above. PAST MEDICAL HISTORY: Congestive heart failure, COPD, shortness of breath, Pierre's palsy, atrial fibrillation, anasarca, morbid obesity, nicotine dependency. PAST SURGICAL HISTORY: Cholecystectomy, appendectomy, umbilical hernia, ganglion cyst, tonsillectomy. SOCIAL HISTORY: Past smoker, alcohol consumer. FAMILY HISTORY: Noncontributory. ALLERGIES: To no known medications. MEDICATIONS: Medication list has been reviewed. REVIEW OF SYSTEMS: HEENT: Denies double vision, blurred vision. RESPIRATORY: Admits to shortness of breath. CARDIOVASCULAR: Denies chest pain. DIGESTIVE SYSTEM: Diarrhea. PHYSICAL EXAMINATION: VITAL SIGNS: Stable. GENERAL: Super morbid obese patient on CPAP. HEENT: Benign otherwise. NECK: Supple. LUNGS: Few scattered rhonchi and decreased air entry. HEART: Atrial fibrillation, moderate ventricular response. No rub, no murmur. ABDOMEN: Super morbid obese, internal organs cannot be palpated. LOWER EXTREMITIES: Diffuse edema, stasis dermatitis. NEUROLOGIC: Alert, oriented to time, place and person. IMPRESSION: Change in bowel habits through diarrhea for 6 months, respiratory [place], [place] REPORT OF CONSULTATION NAME: RUTHIE MONTELONGO SR UNIT #: [id number] ROOM: [facility] DOCTOR: RED ROSE MD BIRTHDATE: [birth year] insufficiency, hypoxemia, atrial fibrillation, super morbid obesity, nicotine dependency. PLAN AND DISCUSSION: At the present time, conservative management. Awaiting C. diff result and ova and parasite result. He cannot be placed in a CT scan of the abdomen because of his morbid size. We will follow along. RED ROSE MD CM:CONSTR:REPORT OF CONSULTATION 22 07/24/17 0230 interface
[2017-07-22 13:39] VITALS: BP 156/80
[2017-07-22 14:05] LABS: BASO # 0.1 10*3/uL (0.0-0.1); BASO % 0.6 % (0.0-1.0); EOS # 0.2 10*3/uL (0.0-0.4); EOS % 1.4 % (1.0-4.0); HEMATOCRIT 55.1 % (42.0-52.0); LYMPH # 2.1 10*3/uL (1.3-4.4); LYMPH % 17.1 % (27.0-41.0); MEAN CELL VOLUME 93.2 fl (80.0-94.0); MEAN CORPUSCULAR HGB 28.8 pg (27.0-31.0); MEAN CORPUSCULAR HGB CONC 30.9 g/dl (33.0-37.0); MEAN PLATELET VOLUME 10.8 fl (9.6-12.3); MONO # 0.7 10*3/uL (0.1-1.0); NEUT # 9.1 10*3/uL (2.3-7.9); NEUT % 74.5 % (47.0-73.0); PLATELET COUNT AUTOMATED 169 10*3/uL (130-400); RED BLOOD COUNT 5.91 10*6/uL (4.50-5.90); RED CELL DISTRI WIDTH 14.6 % (0-14.5); WHITE BLOOD COUNT 12.2 10*3/uL (4.8-10.8)
[2017-07-22 14:15] LABS: ACT PARTIAL THROMBO TIME 27.9 SECONDS (20.8-31.5); INTERNATIONAL NORM RATIO 1.1 (2.0-3.5)
[2017-07-22 14:23] LABS: ALBUMIN 3.1 gm/dl (3.1-4.5); ALKALINE PHOSPHATASE 134 U/L (45-117); BUN 12 mg/dl (7-24); CHLORIDE 101 mmol/L (98-107); CREATININE 1.02 mg/dL (0.70-1.30); SGOT/AST 32 IU/L (3-35); SGPT/ALT 32 U/L (12-78); SODIUM 141 mmol/L (136-145); TOTAL PROTEIN 7.2 gm/dL (6.4-8.2)
[2017-07-22 14:25] LABS: TROPONIN I < 0.015 ng/ml (<0.045)
--- NOTE | 2017-07-22 15:40 | NUR ---
LEVOQUIN AND SALINE INFUSING AT TIME OF ADMISSION
[2017-07-22 16:00] VITALS: BP 130/86
--- NOTE | 2017-07-22 16:43 | NUR ---
DR. WEBSTER AND DR. ROSE NOTIFIED OF CONSULTS.
--- NOTE | 2017-07-22 16:45 | NUR ---
[facility]
[2017-07-22 20:00] VITALS: BP 109/61
--- NOTE | 2017-07-22 23:10 | NUR ---
PT RESTING QUIETLY IN BED. NO FURTHER S/S OF DISTRESS NOTED. PAIN MED EFFECTIVE. PT WEARING HOME BIPAP AT THIS TIME.
[2017-07-23] VITALS: BP 112/62
--- NOTE | 2017-07-23 01:50 | NUR ---
24 HR chart check completed.
--- NOTE | 2017-07-23 03:27 | NUR ---
DR. DIAZ NOTIFIED OF PT SUSTAINED HR OF 130'S AND REQUEST FOR NICOTROL INHALER. N.O. RCVD FOR METOPROLOL TARTRATE 25MG PO X1 NOW AND NICOTROL INHALER PRN.
[2017-07-23 04:51] LABS: BASO % 0.1 % (0.0-1.0); HEMATOCRIT 52.3 % (42.0-52.0); HEMOGLOBIN 16.2 g/dl (14.0-18.0); LYMPH # 0.9 10*3/uL (1.3-4.4); LYMPH % 9.8 % (27.0-41.0); MEAN CELL VOLUME 93.4 fl (80.0-94.0); MEAN CORPUSCULAR HGB 28.9 pg (27.0-31.0); MEAN PLATELET VOLUME 10.6 fl (9.6-12.3); MONO # 0.1 10*3/uL (0.1-1.0); NEUT # 7.8 10*3/uL (2.3-7.9); NEUT % 88.4 % (47.0-73.0); PLATELET COUNT AUTOMATED 165 10*3/uL (130-400); RED CELL DISTRI WIDTH 14.2 % (0-14.5); WHITE BLOOD COUNT 8.9 10*3/uL (4.8-10.8)
[2017-07-23 05:02] LABS: ACT PARTIAL THROMBO TIME 26.1 SECONDS (20.8-31.5); INTERNATIONAL NORM RATIO 1.1 (2.0-3.5)
[2017-07-23 05:22] LABS: ALBUMIN 2.8 gm/dl (3.1-4.5); BUN 13 mg/dl (7-24); CHLORIDE 100 mmol/L (98-107); CHOLESTEROL 139 mg/dL (<200); CREATININE 1.18 mg/dL (0.70-1.30); HDL CHOLESTEROL 31 mg/dl (40-60); LDL CHOLESTEROL 86 mg/dL (9-159); PHOSPHOROUS 2.4 mg/dL (2.5-4.9); POTASSIUM 3.8 mmol/L (3.5-5.1); SGOT/AST 19 IU/L (3-35); SGPT/ALT 32 U/L (12-78); SODIUM 139 mmol/L (136-145); TRIGLYCERIDES 109 mg/dl (<150); VLDL CHOLESTEROL 22 mg/dL (6-40)
[2017-07-23 05:28] LABS: ALKALINE PHOSPHATASE 130 U/L (45-117); FREE T4 0.91 ng/dl (0.76-1.46); THYROID STIM HORMONE (HS) 0.473 uIU/ml (0.358-4.75)
--- NOTE | 2017-07-23 05:38 | NUR ---
PT HR 100. METOPROLOL EFFECTIVE. PT RESTING QUIETLY IN BED.
[2017-07-23 07:53] LABS: ABG BASE EXCESS 2.1 mmol/L (-2.0-2.0); ABG HCO3 29.1 mmol/l (22-26); ARTERIAL BLOOD GAS PCO2 54.6 mmHg (35-45); ARTERIAL BLOOD GAS PH 7.343 (7.35-7.45); ARTERIAL BLOOD GAS PO2 65.5 mmHg (80-90)
[2017-07-23 08:00] VITALS: BP 152/90
--- NOTE | 2017-07-23 09:00 | NUR ---
Knotting Machine Operator Portable in to talk to patient. Patient states lives at home with sister. There are no steps in the home. Physician: jessica Pharmacy: [facility] Home health services: none Patient's level of ADLs: INDEPENDENT Patient has working utilities: all working DME: cpap, nebulizer and home oxygen, motorized wheelchair Follow-up physician's appointment after d/c: will be made by hospitalist nurse director upon discharge Does patient want to access PORTAL?: no Discharge plan discussed with patient, patient lives at home with sister, he states he has everything at home he needs, patient states he will be going home and denies any home needs. STACI BAPTISTE
[2017-07-23 09:20] LABS: VITAMIN D, 25-HYDROXY 30.3 ng/mL (30-100)
--- NOTE | 2017-07-23 11:24 | NUR ---
case management called Jamel Chang [facility], transfer center, left patient's information on secure voicemail
[2017-07-23 16:00] VITALS: BP 126/97
--- NOTE | 2017-07-23 16:27 | NUR ---
prn pain med given for 7/10 back pain.
--- NOTE | 2017-07-23 17:27 | NUR ---
PRN PAIN MED EFFECTIVE, PT RATES PAIN 3/10 TO BACK.
[2017-07-23 20:00] VITALS: BP 129/70
--- NOTE | 2017-07-23 22:19 | NUR ---
MEDICATED WITH PRN NORCO ORDERED FOR C/O LOW BACK PAIN RATED A 7. NO SXS OF DISTRESS AT THIS TIME. PT ON BIPAP. FLUIDS MAINTAINED PER ORDER. CALL LIGHT IN REACH.
[2017-07-24] VITALS: BP 126/74
--- NOTE | 2017-07-24 02:36 | NUR ---
PATEINT SLEEPING COMFORTABLY IN BED. NO SXS OF DISTRESS, RESPIRATIONS EASY/REGULAR. ON BIPAP AT THIS TIME. SETTINGS 16 35%. FLUIDS MAINTAINED PER ORDER. CALL LIGHT IN REACH.
[2017-07-24 06:05] LABS: BASO % 0.1 % (0.0-1.0); EOS % 0.1 % (1.0-4.0); HEMATOCRIT 50.6 % (42.0-52.0); HEMOGLOBIN 15.8 g/dl (14.0-18.0); LYMPH % 7.2 % (27.0-41.0); MEAN CELL VOLUME 93.2 fl (80.0-94.0); MEAN CORPUSCULAR HGB 29.1 pg (27.0-31.0); MEAN CORPUSCULAR HGB CONC 31.2 g/dl (33.0-37.0); MEAN PLATELET VOLUME 11.2 fl (9.6-12.3); MONO # 0.6 10*3/uL (0.1-1.0); MONO % 4.1 % (3.0-9.0); NEUT # 11.7 10*3/uL (2.3-7.9); NEUT % 87.8 % (47.0-73.0); PLATELET COUNT AUTOMATED 161 10*3/uL (130-400); RED BLOOD COUNT 5.43 10*6/uL (4.50-5.90); RED CELL DISTRI WIDTH 14.4 % (0-14.5); WHITE BLOOD COUNT 13.3 10*3/uL (4.8-10.8)
[2017-07-24 06:29] LABS: BUN 15 mg/dl (7-24); CHLORIDE 104 mmol/L (98-107); CREATININE 0.98 mg/dL (0.70-1.30); POTASSIUM 4.2 mmol/L (3.5-5.1); SODIUM 143 mmol/L (136-145)
--- NOTE | 2017-07-24 06:53 | NUR ---
SLEPT T/O SHIFT. PATIENT WAS ON BIPAP MOST OF THE NIGHT. CURRENTLY ON 3LNC. RESPIRATIONS EASY/REG. NO SXS OF DISTRESS. CALL LIGHT IS IN REACH.
[2017-07-24 08:00] VITALS: BP 118/80
--- NOTE | 2017-07-24 08:24 | NUR ---
PATIENT'S HEART RATE WILL DROP INTO THE 30S-40S FOR BRIEF PERIODS OF TIME. PATIENT IS ASYMPTOMATIC WHEN THIS HAPPENS. DR BAEZ NOTIFIED. NO NEW ORDERS RECEIVED. PATIENT IS SITTING ON SIDE OF BED. VOICES NO COMPLAINTS. BED IS IN LOW POSITION. CALL LIGHT IS WITHIN REACH.
--- NOTE | 2017-07-24 08:50 | NUR ---
Shift chart check completed.
--- NOTE | 2017-07-24 09:00 | NUR ---
case management visits with patient, patient denies any home needs
--- NOTE | 2017-07-24 10:00 | NUR ---
NOTIFIED DR BAEZ THAT PATIENT HAS BEEN TAKING HOME MEDICATIONS ALONG WITH THE MEDICATIONS BEING GIVEN HERE.
--- NOTE | 2017-07-24 10:26 | NUR ---
LILA AT [facility] NOTIFIED OF CONSULT.
--- NOTE | 2017-07-24 10:27 | NUR ---
MEDICATIONS BEING HELD DUE TO PATIENT TAKING HOME MEDICATIONS. HOME MEDICATIONS HAVE BEEN SENT TO PHARMACY.
[2017-07-24 12:00] VITALS: BP 114/78
[2017-07-24 16:00] VITALS: BP 106/66
[2017-07-24 20:00] VITALS: BP 129/76
[2017-07-25] VITALS: BP 129/74
[2017-07-25 04:00] VITALS: BP 124/78
[2017-07-25 06:08] LABS: BASO % 0.1 % (0.0-1.0); HEMATOCRIT 51.1 % (42.0-52.0); HEMOGLOBIN 15.8 g/dl (14.0-18.0); LYMPH # 1.2 10*3/uL (1.3-4.4); LYMPH % 8.3 % (27.0-41.0); MEAN CELL VOLUME 92.4 fl (80.0-94.0); MEAN CORPUSCULAR HGB 28.6 pg (27.0-31.0); MEAN CORPUSCULAR HGB CONC 30.9 g/dl (33.0-37.0); MEAN PLATELET VOLUME 11.3 fl (9.6-12.3); MONO # 0.7 10*3/uL (0.1-1.0); MONO % 4.8 % (3.0-9.0); NEUT % 85.9 % (47.0-73.0); PLATELET COUNT AUTOMATED 157 10*3/uL (130-400); RED BLOOD COUNT 5.53 10*6/uL (4.50-5.90); RED CELL DISTRI WIDTH 14.4 % (0-14.5); WHITE BLOOD COUNT 13.9 10*3/uL (4.8-10.8)
[2017-07-25 06:35] LABS: BUN 24 mg/dl (7-24); CHLORIDE 97 mmol/L (98-107); CREATININE 1.43 mg/dL (0.70-1.30); POTASSIUM 4.2 mmol/L (3.5-5.1); SODIUM 137 mmol/L (136-145)
[2017-07-25 08:00] VITALS: BP 118/70
--- NOTE | 2017-07-25 09:37 | NUR ---
case management visits with patient, patient denies any home needs
[2017-07-25] MEDS ORDERED: LEVAQUIN750 M1 PO (12:12)
--- NOTE | 2017-07-25 13:21 | NUR ---
Discharge instructions reviewed with patient/family. Patient receptive and verbalizes understanding. Follow-up care arranged. Written instructions given to patient/family. SUSANNA DAS
== END 2017-07-25 13:21 | disposition home or self-care (01) | DRG 871 ==
LOC: ED 13:39 → 4E 14:45 → EDHOLD 14:45 → 4E 14:48
PROVIDERS: Emergency Medicine; Hospitalist; Internal Medicine; Internal Medicine Nephrology; ADMIT Internal Medicine
PROC: 5A09357 Assistance with Respiratory Ventilation, Less than 24 Consecutive Hours, Continuous Positive Airway Pressure (ICD-10-PCS; principal; 2017-07-22)
DX: A41.9 Sepsis, unspecified organism (principal); J18.9 Pneumonia, unspecified organism; J96.21 Acute and chronic respiratory failure with hypoxia; I11.0 Hypertensive heart disease with heart failure; J44.0 Chronic obstructive pulmonary disease with (acute) lower respiratory infection; I50.32 Chronic diastolic (congestive) heart failure; Z99.81 Dependence on supplemental oxygen; J45.901 Unspecified asthma with (acute) exacerbation; J96.22 Acute and chronic respiratory failure with hypercapnia; I48.92 Unspecified atrial flutter; J44.1 Chronic obstructive pulmonary disease with (acute) exacerbation; E66.2 Morbid (severe) obesity with alveolar hypoventilation; Z68.44 Body mass index [BMI] 60.0-69.9, adult; R65.20 Severe sepsis without septic shock; E53.8 Deficiency of other specified B group vitamins; F17.210 Nicotine dependence, cigarettes, uncomplicated; G89.29 Other chronic pain; M54.9 Dorsalgia, unspecified; J20.9 Acute bronchitis, unspecified; I89.0 Lymphedema, not elsewhere classified; E78.5 Hyperlipidemia, unspecified; R19.7 Diarrhea, unspecified; I48.91 Unspecified atrial fibrillation; E78.00 Pure hypercholesterolemia, unspecified; Z71.6 Tobacco abuse counseling; Z87.01 Personal history of pneumonia (recurrent); Z90.49 Acquired absence of other specified parts of digestive tract; Z83.3 Family history of diabetes mellitus; Z82.49 Family history of ischemic heart disease and other diseases of the circulatory system; Z80.41 Family history of malignant neoplasm of ovary; Z83.6 Family history of other diseases of the respiratory system; Z80.8 Family history of malignant neoplasm of other organs or systems; Z79.01 Long term (current) use of anticoagulants; Z79.899 Other long term (current) drug therapy; Z91.14 Patient's other noncompliance with medication regimen

== ENCOUNTER → 2017-08-06 | Outpatient (CLI) | payer MEDICARE | END | disposition home or self-care (01) | LOC: RESCLI 03:12 | DX: J44.9 Chronic obstructive pulmonary disease, unspecified (principal); E66.01 Morbid (severe) obesity due to excess calories; Z72.0 Tobacco use; Z71.6 Tobacco abuse counseling; I11.0 Hypertensive heart disease with heart failure; I50.9 Heart failure, unspecified; I48.0 Paroxysmal atrial fibrillation; E87.6 Hypokalemia; F33.9 Major depressive disorder, recurrent, unspecified; E78.5 Hyperlipidemia, unspecified; E53.8 Deficiency of other specified B group vitamins; G47.33 Obstructive sleep apnea (adult) (pediatric); Z87.19 Personal history of other diseases of the digestive system ==

== ENCOUNTER 2017-09-03 16:01 | Emergency (ER) | payer OTHER, MEDICARE ==
[~2017-09-03] VITALS: Ht 182.8 cm; Wt 208.2 kg
[2017-09-03 16:58] LABS: BASO # 0.1 10*3/uL (0.0-0.1); BASO % 0.6 % (0.0-1.0); EOS # 0.1 10*3/uL (0.0-0.4); EOS % 0.7 % (1.0-4.0); HEMATOCRIT 51.2 % (42.0-52.0); LYMPH # 1.9 10*3/uL (1.3-4.4); LYMPH % 15.4 % (27.0-41.0); MEAN CELL VOLUME 93.4 fl (80.0-94.0); MEAN CORPUSCULAR HGB 29.2 pg (27.0-31.0); MEAN CORPUSCULAR HGB CONC 31.3 g/dl (33.0-37.0); MEAN PLATELET VOLUME 10.6 fl (9.6-12.3); NEUT # 9.3 10*3/uL (2.3-7.9); NEUT % 74.9 % (47.0-73.0); PLATELET COUNT AUTOMATED 138 10*3/uL (130-400); RED BLOOD COUNT 5.48 10*6/uL (4.50-5.90); RED CELL DISTRI WIDTH 14.5 % (0-14.5); WHITE BLOOD COUNT 12.5 10*3/uL (4.8-10.8)
[2017-09-03 17:03] LABS: CHLORIDE 97 mmol/L (98-107); POTASSIUM 3.8 mmol/L (3.5-5.1); SODIUM 139 mmol/L (136-145)
[2017-09-03 17:13] LABS: ALBUMIN 3.3 gm/dl (3.1-4.5)
[2017-09-03 17:22] LABS: ALKALINE PHOSPHATASE 135 U/L (45-117); BUN 11 mg/dl (7-24); CREATININE 0.86 mg/dL (0.70-1.30); SGOT/AST 33 IU/L (3-35); SGPT/ALT 39 U/L (12-78); TOTAL PROTEIN 7.2 gm/dL (6.4-8.2)
[2017-09-03 17:24] LABS: TROPONIN I < 0.015 ng/ml (<0.045)
== END 2017-09-03 18:04 | disposition home or self-care (01) ==
LOC: ED 16:01
PROVIDERS: Emergency Medicine
DX: J44.9 Chronic obstructive pulmonary disease, unspecified (principal); J45.909 Unspecified asthma, uncomplicated; E78.00 Pure hypercholesterolemia, unspecified; I11.0 Hypertensive heart disease with heart failure; I50.32 Chronic diastolic (congestive) heart failure; E66.01 Morbid (severe) obesity due to excess calories; F17.200 Nicotine dependence, unspecified, uncomplicated; Z79.899 Other long term (current) drug therapy; Z68.43 Body mass index [BMI] 50.0-59.9, adult

== ENCOUNTER 2017-09-24 12:32 | Emergency (ER) | payer OTHER, MEDICARE ==
[~2017-09-24] VITALS: Ht 182.8 cm; Wt 209.1 kg
[2017-09-24 14:01] LABS: BASO # 0.1 10*3/uL (0.0-0.1); BASO % 0.5 % (0.0-1.0); EOS # 0.1 10*3/uL (0.0-0.4); EOS % 1.2 % (1.0-4.0); HEMATOCRIT 52.1 % (42.0-52.0); HEMOGLOBIN 16.6 g/dl (14.0-18.0); LYMPH # 1.9 10*3/uL (1.3-4.4); LYMPH % 16.7 % (27.0-41.0); MEAN CELL VOLUME 92.2 fl (80.0-94.0); MEAN CORPUSCULAR HGB 29.4 pg (27.0-31.0); MEAN CORPUSCULAR HGB CONC 31.9 g/dl (33.0-37.0); MEAN PLATELET VOLUME 10.3 fl (9.6-12.3); MONO # 0.8 10*3/uL (0.1-1.0); MONO % 6.8 % (3.0-9.0); NEUT # 8.3 10*3/uL (2.3-7.9); NEUT % 74.3 % (47.0-73.0); PLATELET COUNT AUTOMATED 143 10*3/uL (130-400); RED BLOOD COUNT 5.65 10*6/uL (4.50-5.90); RED CELL DISTRI WIDTH 14.1 % (0-14.5); WHITE BLOOD COUNT 11.1 10*3/uL (4.8-10.8)
[2017-09-24 14:09] LABS: ACT PARTIAL THROMBO TIME 25.8 SECONDS (20.8-31.5)
[2017-09-24 14:19] LABS: ALKALINE PHOSPHATASE 135 U/L (45-117); BUN 10 mg/dl (7-24); CHLORIDE 97 mmol/L (98-107); CREATININE 0.91 mg/dL (0.70-1.30); LIPASE 86 U/L (73-393); POTASSIUM 3.7 mmol/L (3.5-5.1); SGOT/AST 23 IU/L (3-35); SGPT/ALT 32 U/L (12-78); SODIUM 139 mmol/L (136-145); TOTAL PROTEIN 7.3 gm/dL (6.4-8.2)
[2017-09-24 14:20] LABS: TROPONIN I < 0.015 ng/ml (<0.045)
[2017-09-24 14:28] LABS: ABG BASE EXCESS 8.1 mmol/L (-2.0-2.0); ABG HCO3 37.2 mmol/l (22-26); ABG O2 SATURATION 97.9 % (95-97); ARTERIAL BLOOD GAS PH 7.336 (7.35-7.45); ARTERIAL BLOOD GAS PO2 99.4 mmHg (80-90)
[2017-09-24 14:30] LABS: ARTERIAL BLOOD GAS PCO2 71.4 mmHg (35-45)
[2017-09-24 14:43] LABS: BILIRUBIN NEGATIVE (NEGATIVE); BLOOD NEGATIVE (NEGATIVE); CLARITY CLEAR (CLEAR); COLOR YELLOW (YELLOW); GLUCOSE NEGATIVE (NEGATIVE); KETONE NEGATIVE (NEGATIVE); LEUKO ESTERASE NEGATIVE (NEGATIVE); NITRITE NEGATIVE (NEGATIVE); PH 6.5 (5.0-9.0); UROBILINOGEN 0.2 E.U./dl (0.2-1.0)
[2017-09-24 14:50] LABS: BACTERIA TRACE; RBC 0-2 rbc/hpf (0-2)
== END 2017-09-24 16:05 | disposition short-term general hospital (02) ==
LOC: ED 12:32
PROVIDERS: Emergency Medicine
DX: L03.311 Cellulitis of abdominal wall (principal); R06.89 Other abnormalities of breathing; E87.4 Mixed disorder of acid-base balance; J44.1 Chronic obstructive pulmonary disease with (acute) exacerbation; J45.909 Unspecified asthma, uncomplicated; G89.29 Other chronic pain; G47.33 Obstructive sleep apnea (adult) (pediatric); J96.01 Acute respiratory failure with hypoxia; I10 Essential (primary) hypertension; E78.00 Pure hypercholesterolemia, unspecified; I48.92 Unspecified atrial flutter; I50.30 Unspecified diastolic (congestive) heart failure; Z68.44 Body mass index [BMI] 60.0-69.9, adult; Z90.49 Acquired absence of other specified parts of digestive tract; Z79.899 Other long term (current) drug therapy

== ENCOUNTER → 2017-10-10 | Outpatient (CLI) | payer OTHER, MEDICARE | END | disposition home or self-care (01) | LOC: RESCLI 11:01 | DX: I11.0 Hypertensive heart disease with heart failure (principal); R68.89 Other general symptoms and signs; J02.9 Acute pharyngitis, unspecified; J06.9 Acute upper respiratory infection, unspecified; E66.01 Morbid (severe) obesity due to excess calories; J44.9 Chronic obstructive pulmonary disease, unspecified; I50.9 Heart failure, unspecified; I48.0 Paroxysmal atrial fibrillation; E87.6 Hypokalemia; F33.9 Major depressive disorder, recurrent, unspecified; E78.5 Hyperlipidemia, unspecified; E53.8 Deficiency of other specified B group vitamins; G47.33 Obstructive sleep apnea (adult) (pediatric); R00.0 Tachycardia, unspecified; Z72.0 Tobacco use; Z87.19 Personal history of other diseases of the digestive system ==

== ENCOUNTER 2017-11-20 15:31 | Inpatient (IN) | payer OTHER ==
[~2017-11-20] VITALS: Ht 182.8 cm; Wt 209.2 kg
[2017-11-20 15:35] VITALS: BP 130/71
[2017-11-20 15:50] VITALS: BP 119/66
[2017-11-20 16:03] LABS: BASO # 0.1 10*3/uL (0.0-0.1); BASO % 0.4 % (0.0-1.0); EOS % 0.1 % (1.0-4.0); HEMATOCRIT 50.6 % (42.0-52.0); HEMOGLOBIN 16.1 g/dl (14.0-18.0); LYMPH % 7.1 % (27.0-41.0); MEAN CELL VOLUME 91.8 fl (80.0-94.0); MEAN CORPUSCULAR HGB 29.2 pg (27.0-31.0); MEAN CORPUSCULAR HGB CONC 31.8 g/dl (33.0-37.0); MEAN PLATELET VOLUME 11.3 fl (9.6-12.3); MONO # 0.4 10*3/uL (0.1-1.0); MONO % 3.1 % (3.0-9.0); NEUT % 88.8 % (47.0-73.0); PLATELET COUNT AUTOMATED 168 10*3/uL (130-400); RED BLOOD COUNT 5.51 10*6/uL (4.50-5.90); RED CELL DISTRI WIDTH 13.4 % (0-14.5); WHITE BLOOD COUNT 13.6 10*3/uL (4.8-10.8)
[2017-11-20 16:05] VITALS: BP 131/74
[2017-11-20 16:14] LABS: ACT PARTIAL THROMBO TIME 23.9 SECONDS (20.8-31.5)
[2017-11-20 16:21] LABS: ALBUMIN 3.4 gm/dl (3.1-4.5); ALKALINE PHOSPHATASE 120 U/L (45-117); BUN 15 mg/dl (7-24); CHLORIDE 90 mmol/L (98-107); POTASSIUM 4.2 mmol/L (3.5-5.1); SGOT/AST 87 IU/L (3-35); SGPT/ALT 70 U/L (12-78); SODIUM 134 mmol/L (136-145); TOTAL PROTEIN 7.3 gm/dL (6.4-8.2)
[2017-11-20 16:24] LABS: TROPONIN I < 0.015 ng/ml (<0.045)
[2017-11-20 17:44] VITALS: BP 127/81
[2017-11-20] MEDS ORDERED: METFORMIN500 MG PO (18:23)
[2017-11-20] MEDS ORDERED: SYMB160 INH (18:23)
[2017-11-20] MEDS ORDERED: VITAMIN B-12250 MCG PO (18:23)
[2017-11-20 18:50] VITALS: BP 117/76
[2017-11-20] MEDS ORDERED: OXYGEN NAS (19:25)
[2017-11-20 20:00] VITALS: BP 149/84
[2017-11-21] VITALS: BP 139/80
[2017-11-21 04:00] VITALS: BP 139/80; BP 154/82
[2017-11-21 06:20] LABS: BASO % 0.2 % (0.0-1.0); HEMATOCRIT 50.6 % (42.0-52.0); HEMOGLOBIN 15.9 g/dl (14.0-18.0); LYMPH # 1.1 10*3/uL (1.3-4.4); LYMPH % 8.4 % (27.0-41.0); MEAN CELL VOLUME 91.8 fl (80.0-94.0); MEAN CORPUSCULAR HGB 28.9 pg (27.0-31.0); MEAN CORPUSCULAR HGB CONC 31.4 g/dl (33.0-37.0); MEAN PLATELET VOLUME 11.4 fl (9.6-12.3); MONO # 0.3 10*3/uL (0.1-1.0); MONO % 2.2 % (3.0-9.0); NEUT % 88.7 % (47.0-73.0); PLATELET COUNT AUTOMATED 178 10*3/uL (130-400); RED BLOOD COUNT 5.51 10*6/uL (4.50-5.90); RED CELL DISTRI WIDTH 13.3 % (0-14.5); WHITE BLOOD COUNT 12.5 10*3/uL (4.8-10.8)
[2017-11-21 06:48] LABS: ACT PARTIAL THROMBO TIME 22.7 SECONDS (20.8-31.5); ALBUMIN 3.4 gm/dl (3.1-4.5); ALKALINE PHOSPHATASE 117 U/L (45-117); BUN 13 mg/dl (7-24); CHLORIDE 89 mmol/L (98-107); CHOLESTEROL 178 mg/dL (<200); CREATININE 1.08 mg/dL (0.70-1.30); FREE T4 1.06 ng/dl (0.76-1.46); HDL CHOLESTEROL 37 mg/dl (40-60); LDL CHOLESTEROL 105 mg/dL (9-159); PHOSPHOROUS 2.7 mg/dL (2.5-4.9); POTASSIUM 4.1 mmol/L (3.5-5.1); SGOT/AST 58 IU/L (3-35); SGPT/ALT 69 U/L (12-78); SODIUM 135 mmol/L (136-145); TOTAL PROTEIN 7.4 gm/dL (6.4-8.2); TRIGLYCERIDES 182 mg/dl (<150); VLDL CHOLESTEROL 36 mg/dL (6-40)
[2017-11-21 08:30] VITALS: BP 131/69
[2017-11-21 08:48] LABS: VITAMIN D, 25-HYDROXY 17.7 ng/mL (30-100)
[2017-11-21] MEDS ORDERED: NATURE'S BLEND F1 MG PO (10:03)
[2017-11-21] MEDS ORDERED: AMITRIPTYLINE H10 M1 PO (10:03)
[2017-11-21] MEDS ORDERED: NEURONTIN300 MG PO (10:04)
[2017-11-21] MEDS ORDERED: FERROUS SULFAT325 MG PO (10:05)
[2017-11-21] MEDS ORDERED: COMPETE1 EACH PO (10:07)
[2017-11-21] MEDS ORDERED: FOLGARD TABLET1 EACH PO (10:09)
[2017-11-21 12:00] VITALS: BP 113/84
[2017-11-21 16:00] VITALS: BP 131/85
[2017-11-21 20:00] VITALS: BP 127/65
[2017-11-22] VITALS: BP 109/55
[2017-11-22 06:17] LABS: BASO % 0.1 % (0.0-1.0); HEMATOCRIT 50.2 % (42.0-52.0); HEMOGLOBIN 15.9 g/dl (14.0-18.0); MEAN CELL VOLUME 91.6 fl (80.0-94.0); MEAN CORPUSCULAR HGB CONC 31.7 g/dl (33.0-37.0); MEAN PLATELET VOLUME 11.6 fl (9.6-12.3); MONO # 0.5 10*3/uL (0.1-1.0); MONO % 3.5 % (3.0-9.0); NEUT # 12.4 10*3/uL (2.3-7.9); PLATELET COUNT AUTOMATED 163 10*3/uL (130-400); RED BLOOD COUNT 5.48 10*6/uL (4.50-5.90); RED CELL DISTRI WIDTH 13.2 % (0-14.5); WHITE BLOOD COUNT 13.9 10*3/uL (4.8-10.8)
[2017-11-22 06:47] LABS: BUN 20 mg/dl (7-24); CHLORIDE 87 mmol/L (98-107); CREATININE 1.12 mg/dL (0.70-1.30); SODIUM 134 mmol/L (136-145)
[2017-11-22 08:00] VITALS: BP 130/71
[2017-11-22 12:00] VITALS: BP 105/66
[2017-11-22 16:00] VITALS: BP 102/76
[2017-11-22 20:00] VITALS: BP 128/90
[2017-11-23] VITALS: BP 111/70
[2017-11-23 06:41] LABS: BASO % 0.1 % (0.0-1.0); EOS % 0.3 % (1.0-4.0); HEMATOCRIT 48.4 % (42.0-52.0); HEMOGLOBIN 15.7 g/dl (14.0-18.0); LYMPH # 0.9 10*3/uL (1.3-4.4); LYMPH % 7.8 % (27.0-41.0); MEAN CELL VOLUME 92.5 fl (80.0-94.0); MEAN CORPUSCULAR HGB CONC 32.4 g/dl (33.0-37.0); MEAN PLATELET VOLUME 11.4 fl (9.6-12.3); MONO # 0.5 10*3/uL (0.1-1.0); MONO % 4.4 % (3.0-9.0); NEUT # 10.3 10*3/uL (2.3-7.9); PLATELET COUNT AUTOMATED 155 10*3/uL (130-400); RED BLOOD COUNT 5.23 10*6/uL (4.50-5.90); RED CELL DISTRI WIDTH 13.2 % (0-14.5); WHITE BLOOD COUNT 11.8 10*3/uL (4.8-10.8)
[2017-11-23 07:11] LABS: ALBUMIN 2.9 gm/dl (3.1-4.5); ALKALINE PHOSPHATASE 87 U/L (45-117); BUN 24 mg/dl (7-24); CHLORIDE 90 mmol/L (98-107); CREATININE 0.99 mg/dL (0.70-1.30); POTASSIUM 3.8 mmol/L (3.5-5.1); SGOT/AST 39 IU/L (3-35); SGPT/ALT 49 U/L (12-78); SODIUM 137 mmol/L (136-145); TOTAL PROTEIN 6.3 gm/dL (6.4-8.2)
[2017-11-23 08:00] VITALS: BP 120/72
[2017-11-23 12:00] VITALS: BP 121/84
[2017-11-23] MEDS ORDERED: PREDNISONE10 MG PO (14:06)
[2017-11-23] MEDS ORDERED: LEVAQUIN750 M1 PO (14:06)
== END 2017-11-23 15:26 | disposition home or self-care (01) | DRG 291 ==
LOC: ED 15:31 → EDHOLD 16:57 → 5E 16:57
PROVIDERS: Emergency Medicine; Family Medicine; Internal Medicine
PROC: 5A09357 Assistance with Respiratory Ventilation, Less than 24 Consecutive Hours, Continuous Positive Airway Pressure (ICD-10-PCS; principal; 2017-11-20)
PROC: 5A09357 Assistance with Respiratory Ventilation, Less than 24 Consecutive Hours, Continuous Positive Airway Pressure (ICD-10-PCS; 2017-11-21)
PROC: 5A09357 Assistance with Respiratory Ventilation, Less than 24 Consecutive Hours, Continuous Positive Airway Pressure (ICD-10-PCS; 2017-11-22)
DX: I11.0 Hypertensive heart disease with heart failure (principal); J96.20 Acute and chronic respiratory failure, unspecified whether with hypoxia or hypercapnia; D68.59 Other primary thrombophilia; E66.01 Morbid (severe) obesity due to excess calories; E11.65 Type 2 diabetes mellitus with hyperglycemia; E83.41 Hypermagnesemia; I48.92 Unspecified atrial flutter; Z68.44 Body mass index [BMI] 60.0-69.9, adult; Z99.81 Dependence on supplemental oxygen; I50.43 Acute on chronic combined systolic (congestive) and diastolic (congestive) heart failure; J44.9 Chronic obstructive pulmonary disease, unspecified; D72.829 Elevated white blood cell count, unspecified; D72.9 Disorder of white blood cells, unspecified; D72.810 Lymphocytopenia; E78.00 Pure hypercholesterolemia, unspecified; G47.33 Obstructive sleep apnea (adult) (pediatric); E53.8 Deficiency of other specified B group vitamins; G89.29 Other chronic pain; M54.9 Dorsalgia, unspecified; Z90.49 Acquired absence of other specified parts of digestive tract; Z71.6 Tobacco abuse counseling; Z79.899 Other long term (current) drug therapy; Z72.0 Tobacco use; Z83.3 Family history of diabetes mellitus; Z82.49 Family history of ischemic heart disease and other diseases of the circulatory system; Z83.6 Family history of other diseases of the respiratory system; Z83.49 Family history of other endocrine, nutritional and metabolic diseases; Z80.41 Family history of malignant neoplasm of ovary; Z80.8 Family history of malignant neoplasm of other organs or systems; Z80.0 Family history of malignant neoplasm of digestive organs

== ENCOUNTER → 2018-01-01 | Outpatient (CLI) | payer MEDICARE ==
[~2018-01-01] MED LIST changes: +AMITRIPTYLINE H10 M1 PO; +COMPETE1 EACH PO; +FERROUS SULFAT325 MG PO; +FOLGARD TABLET1 EACH PO; +METFORMIN500 MG PO; +NEURONTIN300 MG PO; +SYMB160 INH; +VITAMIN B-12250 MCG PO
== END | disposition home or self-care (01) ==
LOC: RESCLI 12-26 02:48
DX: I11.0 Hypertensive heart disease with heart failure (principal); I50.30 Unspecified diastolic (congestive) heart failure; I48.2 Chronic atrial fibrillation; E11.9 Type 2 diabetes mellitus without complications; E53.8 Deficiency of other specified B group vitamins; E66.09 Other obesity due to excess calories; R26.89 Other abnormalities of gait and mobility; J84.10 Pulmonary fibrosis, unspecified; J43.8 Other emphysema; G89.29 Other chronic pain; M54.5 Low back pain; M19.90 Unspecified osteoarthritis, unspecified site; E78.2 Mixed hyperlipidemia; K21.9 Gastro-esophageal reflux disease without esophagitis; Z68.44 Body mass index [BMI] 60.0-69.9, adult; Z99.81 Dependence on supplemental oxygen; Z79.4 Long term (current) use of insulin

== ENCOUNTER → 2018-01-08 | Outpatient (CLI) | payer MEDICARE | END | disposition home or self-care (01) | LOC: CARD 00:08 | DX: J44.9 Chronic obstructive pulmonary disease, unspecified (principal); M54.2 Cervicalgia; E11.9 Type 2 diabetes mellitus without complications; I48.91 Unspecified atrial fibrillation; I50.9 Heart failure, unspecified; Z91.81 History of falling ==

== ENCOUNTER 2018-01-23 12:04 | Inpatient (IN) | payer MEDICARE ==
[2018-01-23] VITALS (10 sets, daily range): BP systolic 111–122; BP diastolic 66–86
[~2018-01-23] VITALS: Ht 185.4 cm; Wt 206.0 kg
--- NOTE | ~2018-01-23 | CON ---
[place], [place] REPORT OF CONSULTATION [id number] UN[facility] #: [id number] ROOM: 511 DOCTOR: NICOLASA CHENG DPM BIRTHDATE: [birth year] DOS: 01/26/2018 SUBJECTIVE: The patient presents, a 52-year-old male with chief complaint of swelling and redness to both lower extremities. The patient states they have been red and swollen for months. He is having mild discomfort. PAST MEDICAL HISTORY: Asthma, atrial flutter, Pierre's palsy, chronic diastolic heart failure, chronic respiratory failure, COPD, hypertension, hypercholesterolemia, insulin-dependent diabetes, morbid obesity, obstructive sleep apnea, oxygen dependent, vitamin B12 deficiency. PAST SURGICAL HISTORY: Umbilical hernia repair, appendectomy, cholecystectomy, surgical removal of ganglion cyst, tonsillectomy. SOCIAL HISTORY: Denies illicit drug use. Former smoker 1 pack daily x 41 years, quit 2 months ago. History of alcohol abuse, but quit 26 years ago. FAMILY HISTORY: Mother at age 55 of ovarian cancer. Father at age 82 of throat cancer. Sister at age 50 of colon cancer. ALLERGIES: Denies. LOWER EXTREMITY EXAMINATION: Pedal pulses nonpalpable, both DP and PT bilateral. There is decreased capillary refill time bilateral; rubor upon dependency, bilateral. Lack of hair growth, decreased skin temperature, bilateral foot. There is edema, venous insufficiency with venous stasis, bilateral; lower extremity erythema anterior aspect, bilateral lower leg. Venous Doppler was negative for DVT. ASSESSMENT: Cellulitis, venous insufficiency, venous stasis, bilateral lower leg; peripheral vascular disease. PLAN: Evaluation and management discussed with the patient in detail that he needs to have an arterial Doppler performed to rule out arterial insufficiency. Discussed with the patient ____ apply Unna boots. He needs a sufficient arterial supply such as an YUAN above 0.6 to be able to apply Unna boots. The patient may not be a candidate for Unna boot applications due to underlying arterial disease which appears to be clinically ____ at this time. Ordered Tubigrip both lower legs and ammonium lactate to be applied to both lower extremities until arterial Dopplers can be performed. Possible Unna boot applications. If sufficient arterial flow or the patient may need a vascular consultation if insufficient but until arterial status is assessed, I would not recommend compression more than Tubigrip at this point. [place], [place] REPORT OF CONSULTATION NAME: RUTHIE MONTELONGO SR UNIT #: [id number] ROOM: 511 DOCTOR: NICOLASA CHENG DPM BIRTHDATE: [birth year] NICOLASA CHENG DPM CM:CONSTR:REPORT OF CONSULTATION 1012 01/27/18 0423 interface
[~2018-01-23 12:04] MED LIST changes: -LANTUS SOL100 UNIT/1 SQ; -PRILOSEC20 M1 PO
[2018-01-23 12:34] LABS: BASO # 0.1 10*3/uL (0.0-0.1); BASO % 0.6 % (0.0-1.0); EOS # 0.1 10*3/uL (0.0-0.4); EOS % 0.7 % (1.0-4.0); HEMATOCRIT 52.2 % (42.0-52.0); LYMPH # 1.7 10*3/uL (1.3-4.4); MEAN CELL VOLUME 95.8 fl (80.0-94.0); MEAN CORPUSCULAR HGB 29.4 pg (27.0-31.0); MEAN CORPUSCULAR HGB CONC 30.7 g/dl (33.0-37.0); MEAN PLATELET VOLUME 11.7 fl (9.6-12.3); MONO # 0.8 10*3/uL (0.1-1.0); MONO % 7.3 % (3.0-9.0); NEUT % 74.6 % (47.0-73.0); PLATELET COUNT AUTOMATED 135 10*3/uL (130-400); RED BLOOD COUNT 5.45 10*6/uL (4.50-5.90); RED CELL DISTRI WIDTH 13.4 % (0-14.5); WHITE BLOOD COUNT 10.6 10*3/uL (4.8-10.8)
[2018-01-23 12:44] LABS: ACT PARTIAL THROMBO TIME 23.5 SECONDS (20.8-31.5)
[2018-01-23 12:50] LABS: ALBUMIN 3.3 gm/dl (3.1-4.5); ALKALINE PHOSPHATASE 77 U/L (45-117); BUN 7 mg/dl (7-24); CHLORIDE 97 mmol/L (98-107); CREATININE 0.78 mg/dL (0.70-1.30); SGOT/AST 31 IU/L (3-35); SGPT/ALT 42 U/L (12-78); SODIUM 137 mmol/L (136-145); TOTAL PROTEIN 6.6 gm/dL (6.4-8.2)
[2018-01-23 13:03] LABS: TROPONIN I < 0.015 ng/ml (<0.045)
[2018-01-23] MEDS ORDERED: PRILOSEC20 M1 PO (18:27)
[2018-01-23] MEDS ORDERED: LANTUS SOL100 UNIT/1 SQ (18:33)
[2018-01-24] VITALS (12 sets, daily range): BP systolic 98–130; BP diastolic 50–77
[2018-01-24 06:03] LABS: BUN 11 mg/dl (7-24); CHLORIDE 96 mmol/L (98-107); CREATININE 0.79 mg/dL (0.70-1.30); PHOSPHOROUS 3.6 mg/dL (2.5-4.9); POTASSIUM 4.2 mmol/L (3.5-5.1); SODIUM 138 mmol/L (136-145)
[2018-01-24 06:09] LABS: BASO % 0.3 % (0.0-1.0); EOS % 0.1 % (1.0-4.0); HEMOGLOBIN 15.8 g/dl (14.0-18.0); LYMPH # 0.9 10*3/uL (1.3-4.4); LYMPH % 12.3 % (27.0-41.0); MEAN CELL VOLUME 97.2 fl (80.0-94.0); MEAN CORPUSCULAR HGB CONC 29.8 g/dl (33.0-37.0); MEAN PLATELET VOLUME 12.1 fl (9.6-12.3); MONO # 0.3 10*3/uL (0.1-1.0); MONO % 3.6 % (3.0-9.0); NEUT # 5.8 10*3/uL (2.3-7.9); NEUT % 82.6 % (47.0-73.0); PLATELET COUNT AUTOMATED 117 10*3/uL (130-400); RED BLOOD COUNT 5.45 10*6/uL (4.50-5.90); RED CELL DISTRI WIDTH 13.2 % (0-14.5)
[2018-01-25] VITALS (8 sets, daily range): BP systolic 96–145; BP diastolic 47–86
[2018-01-25 06:09] LABS: EOS % 0.2 % (1.0-4.0); HEMATOCRIT 53.5 % (42.0-52.0); HEMOGLOBIN 16.1 g/dl (14.0-18.0); LYMPH % 9.1 % (27.0-41.0); MEAN CELL VOLUME 97.3 fl (80.0-94.0); MEAN CORPUSCULAR HGB 29.3 pg (27.0-31.0); MEAN CORPUSCULAR HGB CONC 30.1 g/dl (33.0-37.0); MEAN PLATELET VOLUME 11.9 fl (9.6-12.3); MONO # 0.2 10*3/uL (0.1-1.0); NEUT # 9.2 10*3/uL (2.3-7.9); NEUT % 88.1 % (47.0-73.0); PLATELET COUNT AUTOMATED 135 10*3/uL (130-400); RED CELL DISTRI WIDTH 13.2 % (0-14.5); WHITE BLOOD COUNT 10.5 10*3/uL (4.8-10.8)
[2018-01-25 06:29] LABS: ALBUMIN 3.4 gm/dl (3.1-4.5); ALKALINE PHOSPHATASE 74 U/L (45-117); BUN 15 mg/dl (7-24); CHLORIDE 93 mmol/L (98-107); CREATININE 0.83 mg/dL (0.70-1.30); POTASSIUM 4.2 mmol/L (3.5-5.1); SGOT/AST 26 IU/L (3-35); SGPT/ALT 35 U/L (12-78); SODIUM 135 mmol/L (136-145); TOTAL PROTEIN 6.9 gm/dL (6.4-8.2)
[2018-01-26] VITALS: BP 135/78
[2018-01-26 06:36] LABS: EOS % 0.2 % (1.0-4.0); HEMATOCRIT 50.4 % (42.0-52.0); HEMOGLOBIN 14.9 g/dl (14.0-18.0); LYMPH # 0.8 10*3/uL (1.3-4.4); LYMPH % 7.5 % (27.0-41.0); MEAN CELL VOLUME 97.3 fl (80.0-94.0); MEAN CORPUSCULAR HGB 28.8 pg (27.0-31.0); MEAN CORPUSCULAR HGB CONC 29.6 g/dl (33.0-37.0); MEAN PLATELET VOLUME 12.4 fl (9.6-12.3); MONO # 0.4 10*3/uL (0.1-1.0); MONO % 3.7 % (3.0-9.0); NEUT # 8.8 10*3/uL (2.3-7.9); NEUT % 87.9 % (47.0-73.0); PLATELET COUNT AUTOMATED 141 10*3/uL (130-400); RED BLOOD COUNT 5.18 10*6/uL (4.50-5.90); RED CELL DISTRI WIDTH 13.3 % (0-14.5)
[2018-01-26 07:04] LABS: BUN 19 mg/dl (7-24); CHLORIDE 92 mmol/L (98-107); POTASSIUM 3.5 mmol/L (3.5-5.1); SODIUM 137 mmol/L (136-145)
[2018-01-26 07:11] LABS: CREATININE 0.87 mg/dL (0.70-1.30); PHOSPHOROUS 3.7 mg/dL (2.5-4.9)
[2018-01-26 08:00] VITALS: BP 124/68
[2018-01-26 12:00] VITALS: BP 135/78
[2018-01-26 12:17] LABS: BILIRUBIN NEGATIVE (NEGATIVE); BLOOD 3+ (NEGATIVE); CLARITY CLOUDY (CLEAR); COLOR YELLOW (YELLOW); GLUCOSE 3+ (NEGATIVE); KETONE NEGATIVE (NEGATIVE); LEUKO ESTERASE TRACE (NEGATIVE); NITRITE NEGATIVE (NEGATIVE); UROBILINOGEN 0.2 E.U./dl (0.2-1.0)
[2018-01-26 12:23] LABS: RBC TNTC rbc/hpf (0-2)
[2018-01-26 16:00] VITALS: BP 133/69
[2018-01-26 20:00] VITALS: BP 140/70
[2018-01-27] VITALS: BP 102/48
[2018-01-27 06:32] LABS: EOS % 0.5 % (1.0-4.0); HEMATOCRIT 49.3 % (42.0-52.0); LYMPH # 0.5 10*3/uL (1.3-4.4); MEAN CELL VOLUME 95.9 fl (80.0-94.0); MEAN CORPUSCULAR HGB 29.2 pg (27.0-31.0); MEAN CORPUSCULAR HGB CONC 30.4 g/dl (33.0-37.0); MEAN PLATELET VOLUME 12.4 fl (9.6-12.3); MONO # 0.3 10*3/uL (0.1-1.0); MONO % 3.4 % (3.0-9.0); NEUT # 6.9 10*3/uL (2.3-7.9); NEUT % 89.5 % (47.0-73.0); PLATELET COUNT AUTOMATED 130 10*3/uL (130-400); RED BLOOD COUNT 5.14 10*6/uL (4.50-5.90); RED CELL DISTRI WIDTH 13.3 % (0-14.5); WHITE BLOOD COUNT 7.7 10*3/uL (4.8-10.8)
[2018-01-27 07:02] LABS: ALBUMIN 3.2 gm/dl (3.1-4.5); BUN 20 mg/dl (7-24); CHLORIDE 95 mmol/L (98-107); CREATININE 0.95 mg/dL (0.70-1.30); POTASSIUM 3.7 mmol/L (3.5-5.1); SGOT/AST 21 IU/L (3-35); SGPT/ALT 33 U/L (12-78); SODIUM 138 mmol/L (136-145)
[2018-01-27 07:03] LABS: ALKALINE PHOSPHATASE 63 U/L (45-117); TOTAL PROTEIN 6.3 gm/dL (6.4-8.2)
[2018-01-27 08:00] VITALS: BP 122/63
[2018-01-27] MEDS ORDERED: Humalog SQ (09:50)
[2018-01-27] MEDS ORDERED: PREDNISONE10 MG PO (09:50)
[2018-01-27] MEDS ORDERED: TOPROL XL50 M1 PO (09:54)
== END 2018-01-27 13:37 | disposition home or self-care (01) | DRG 291 ==
LOC: ED 12:04 → ICCU 13:25 → 5E 01-25 13:15
PROVIDERS: Emergency Medicine; Internal Medicine; Student in an Organized Health Care Education/Training Program
PROC: 5A09357 Assistance with Respiratory Ventilation, Less than 24 Consecutive Hours, Continuous Positive Airway Pressure (ICD-10-PCS; principal; 2018-01-23)
PROC: 5A09357 Assistance with Respiratory Ventilation, Less than 24 Consecutive Hours, Continuous Positive Airway Pressure (ICD-10-PCS; 2018-01-24)
PROC: 5A09357 Assistance with Respiratory Ventilation, Less than 24 Consecutive Hours, Continuous Positive Airway Pressure (ICD-10-PCS; 2018-01-25)
PROC: 5A09357 Assistance with Respiratory Ventilation, Less than 24 Consecutive Hours, Continuous Positive Airway Pressure (ICD-10-PCS; 2018-01-27)
DX: I11.0 Hypertensive heart disease with heart failure (principal); J18.9 Pneumonia, unspecified organism; R65.11 Systemic inflammatory response syndrome (SIRS) of non-infectious origin with acute organ dysfunction; J96.20 Acute and chronic respiratory failure, unspecified whether with hypoxia or hypercapnia; E44.0 Moderate protein-calorie malnutrition; E11.51 Type 2 diabetes mellitus with diabetic peripheral angiopathy without gangrene; I48.92 Unspecified atrial flutter; Z99.81 Dependence on supplemental oxygen; I48.0 Paroxysmal atrial fibrillation; L03.116 Cellulitis of left lower limb; L03.115 Cellulitis of right lower limb; Z68.44 Body mass index [BMI] 60.0-69.9, adult; I50.33 Acute on chronic diastolic (congestive) heart failure; E11.65 Type 2 diabetes mellitus with hyperglycemia; E66.01 Morbid (severe) obesity due to excess calories; D72.810 Lymphocytopenia; R00.0 Tachycardia, unspecified; D72.9 Disorder of white blood cells, unspecified; E83.41 Hypermagnesemia; E78.00 Pure hypercholesterolemia, unspecified; G47.33 Obstructive sleep apnea (adult) (pediatric); E53.8 Deficiency of other specified B group vitamins; J42 Unspecified chronic bronchitis; H10.31 Unspecified acute conjunctivitis, right eye; E78.5 Hyperlipidemia, unspecified; I87.2 Venous insufficiency (chronic) (peripheral); I87.8 Other specified disorders of veins; E87.70 Fluid overload, unspecified; Z90.49 Acquired absence of other specified parts of digestive tract; Z80.41 Family history of malignant neoplasm of ovary; Z80.8 Family history of malignant neoplasm of other organs or systems; Z80.0 Family history of malignant neoplasm of digestive organs; Z83.6 Family history of other diseases of the respiratory system; Z82.49 Family history of ischemic heart disease and other diseases of the circulatory system; Z83.49 Family history of other endocrine, nutritional and metabolic diseases; Z79.899 Other long term (current) drug therapy; Z87.891 Personal history of nicotine dependence; Z79.4 Long term (current) use of insulin; Z79.52 Long term (current) use of systemic steroids

== ENCOUNTER → 2018-01-23 | Outpatient (CLI) | payer MEDICARE ==
[~2018-01-23] MED LIST changes: +LANTUS SOL100 UNIT/1 SQ; +PRILOSEC20 M1 PO
--- NOTE | ~2018-01-23 | PF ---
[place], [place] PULMONARY FUNCTION TEST [facility]: [id number] UN[facility] #: [id number] ROOM: DOCTOR: ELEANOR GARZA MD,JANA BIRTHDATE: [birth year] DOS: 01/23/2018 Testing was done for patient on 01/23/2018, which was ordered by Dr. Shimon Mtz. HISTORY: The testing was done for assessment of COPD. The patient reported chronic tobacco use, 2 packs of cigarettes per day for 42 years. Symptoms of dyspnea with exertion, nonproductive cough, constant wheezing was known as well. The patient does not have any post-bronchodilator testing done. As the patient was doing the pulmonary function test, he developed tachycardia with heart rate of 144 beats per minute and sent to the Emergency Room. He does use oxygen supplementation on 2 liter nasal cannula as well. SPIROMETRY: Without bronchodilators FVC was recorded as 2.0 liter 39% predicted value. The FEV1 was recorded as 0.70 liters, 17% predicted value. The ratio of FEV1/FVC, the patient recorded 33%. Flow volume loop was suggestive of obstructive airway disease. Spirometry suggestive of very severe COPD. The patient's FEV1 only 17%. Postbronchodilator testing was not completed, so if any partial reversibility present with postbronchodilator could not be known. Lung diffusion of the patient noted at 50% for this patient on corrected carbon monoxide hemoglobin value. FINAL IMPRESSION: The test is highly suggestive of very severe chronic obstructive pulmonary disease. JANA WEBSTER MD CM:PFREPORT:PULMONARY FUNCTION TEST [id number] JANA GARZA MD
== END | disposition home or self-care (01) ==
LOC: CARD 00:26
DX: J44.9 Chronic obstructive pulmonary disease, unspecified (principal)

== ENCOUNTER → 2018-02-05 | Outpatient (CLI) | payer MEDICARE, OTHER ==
[~2018-02-05] MED LIST changes: +Humalog SQ; +LANTUS SOL100 UNIT/1 SQ; +PRILOSEC20 M1 PO; +TOPROL XL50 M1 PO
== END | disposition home or self-care (01) ==
LOC: RESCLI 00:37
DX: I11.0 Hypertensive heart disease with heart failure (principal); I50.32 Chronic diastolic (congestive) heart failure; E11.69 Type 2 diabetes mellitus with other specified complication; M54.40 Lumbago with sciatica, unspecified side; I48.0 Paroxysmal atrial fibrillation; J44.9 Chronic obstructive pulmonary disease, unspecified; F32.9 Major depressive disorder, single episode, unspecified; M15.9 Polyosteoarthritis, unspecified; E55.9 Vitamin D deficiency, unspecified; E66.09 Other obesity due to excess calories; E78.5 Hyperlipidemia, unspecified; E53.8 Deficiency of other specified B group vitamins; R19.7 Diarrhea, unspecified; Z99.81 Dependence on supplemental oxygen; Z72.0 Tobacco use; Z90.49 Acquired absence of other specified parts of digestive tract

== ENCOUNTER 2018-03-16 10:04 | Emergency (ER) | payer MEDICARE, OTHER ==
[~2018-03-16] VITALS: Ht 177.8 cm; Wt 213.2 kg
[2018-03-16 10:31] LABS: BASO # 0.1 10*3/uL (0.0-0.1); BASO % 0.5 % (0.0-1.0); EOS # 0.1 10*3/uL (0.0-0.4); EOS % 0.5 % (1.0-4.0); HEMATOCRIT 42.7 % (42.0-52.0); HEMOGLOBIN 13.6 g/dl (14.0-18.0); LYMPH # 1.6 10*3/uL (1.3-4.4); LYMPH % 12.1 % (27.0-41.0); MEAN CELL VOLUME 88.8 fl (80.0-94.0); MEAN CORPUSCULAR HGB 28.3 pg (27.0-31.0); MEAN CORPUSCULAR HGB CONC 31.9 g/dl (33.0-37.0); MEAN PLATELET VOLUME 10.3 fl (9.6-12.3); MONO % 7.3 % (3.0-9.0); NEUT # 10.8 10*3/uL (2.3-7.9); NEUT % 79.2 % (47.0-73.0); PLATELET COUNT AUTOMATED 199 10*3/uL (130-400); RED BLOOD COUNT 4.81 10*6/uL (4.50-5.90); RED CELL DISTRI WIDTH 13.8 % (0-14.5); WHITE BLOOD COUNT 13.6 10*3/uL (4.8-10.8)
[2018-03-16 10:48] LABS: ALBUMIN 2.6 gm/dl (3.1-4.5); ALKALINE PHOSPHATASE 79 U/L (45-117); BUN 7 mg/dl (7-24); CHLORIDE 96 mmol/L (98-107); CREATININE 0.99 mg/dL (0.70-1.30); POTASSIUM 4.1 mmol/L (3.5-5.1); SGOT/AST 16 IU/L (3-35); SGPT/ALT 22 U/L (12-78); SODIUM 133 mmol/L (136-145); TOTAL PROTEIN 7.7 gm/dL (6.4-8.2)
[2018-03-16 10:51] LABS: TROPONIN I < 0.015 ng/ml (<0.045)
== END 2018-03-16 12:45 | disposition home or self-care (01) ==
LOC: ED 10:04
PROVIDERS: Emergency Medicine
DX: R06.02 Shortness of breath (principal); R05 Cough; R07.89 Other chest pain; J44.9 Chronic obstructive pulmonary disease, unspecified; E78.00 Pure hypercholesterolemia, unspecified; E66.9 Obesity, unspecified; I10 Essential (primary) hypertension; I50.32 Chronic diastolic (congestive) heart failure; I48.91 Unspecified atrial fibrillation; Z87.891 Personal history of nicotine dependence; Z68.44 Body mass index [BMI] 60.0-69.9, adult; Z79.899 Other long term (current) drug therapy

== ENCOUNTER 2018-03-23 19:18 | Inpatient (IN) | payer MEDICARE, OTHER ==
[~2018-03-23] VITALS: Ht 182.8 cm; Wt 194.4 kg
--- NOTE | ~2018-03-23 | PR ---
[place], [place] PROGRESS NOTE NAME: RUTHIE MONTELONGO SR [facility] #: [id number] UNIT #: [id number] ROOM: 508 DOCTOR: PATRICIA BAZAN MD BIRTHDATE: [birth year] DOS: 03/28/2018 SUBJECTIVE: The patient was seen at his bedside today, 03/28/2018, for followup of his endocarditis. He is a 53-year-old man who was found to have high-grade bacteremia with Enterococcus faecalis. He does have morbid obesity and his surface echocardiogram was very limited. We therefore did proceed with a transesophageal echocardiogram on 03/27/2018, even this study was technically difficult, but did show small vegetations on his aortic valve and a large vegetation on his mitral valve measuring 1 cm in diameter associated with at least moderate mitral insufficiency. The patient feels well today. His shoulder pains have improved and he is breathing easily. PHYSICAL EXAMINATION: VITAL SIGNS: Today, his pulse is 77 and regular, blood pressure is 114/70. He is afebrile. NECK: Supple. He has no jugular distention. Carotids are full. LUNGS: Respirations are unlabored. His chest has decreased breath sounds bilaterally. HEART: Has regular rhythm with distant tones. There is grade 1/6 holosystolic murmur at the apex. ABDOMEN: Massively obese. EXTREMITIES: Showed trace edema of the ankles. IMPRESSION: 1. 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 2. Severe chronic obstructive pulmonary disease with chronic respiratory failure and ongoing cigarette abuse. 3. Bulky vegetation on the anterior mitral valve leaflet measuring approximately 1 cm in diameter. 4. Chronic heart failure with preserved ejection fraction. 5. Diabetes mellitus, on insulin. 6. Super morbid obesity. 7. Recent weight loss. 8. Tachycardia. 9. Essential hypertension. 10. History of paroxysmal atrial fibrillation. PLAN: I think the patient presents a very challenging therapeutic dilemma. I believe that he should undergo surgery for probable mitral valve replacement and possible aortic valve replacement as well. However, I think that his surgical morbidity will be very high and that he may end up chronically on a ventilator after surgery. Nonetheless, I agree with the other consultants that a cardiothoracic opinion would be very helpful. I agree that he should be sent to a tertiary center where he could be seen by Cardiothoracic Surgery, Infectious Diseases, and Pulmonary consultants to help determine whether it is appropriate to proceed right now with surgery or if he should be given an 8-week trial of antibiotics and follow up KELLEN instead. I explained to the patient that there are pros and cons to both strategies and he understands that getting more information will be very helpful in the long run. [place], [place] PROGRESS NOTE NAME: REGINALD SRRUTHIE Mckoy UNIT #: [id number] ROOM: 508 DOCTOR: PATRICIA BAZAN MD BIRTHDATE: [birth year] I thank the hospitalist physicians for asking our advice regarding his care. PATRICIA BAZAN MD CM:PNTRANS 1219 PATRICIA BAZAN MD 03/29/18 0008 interface
--- NOTE | ~2018-03-23 | CON ---
[place], [place] REPORT OF CONSULTATION NAME: RUTHIE MONTELONGO SR [facility] #: [id number] UNIT #: [id number] ROOM: 508 DOCTOR: PATRICIA BAZAN MD BIRTHDATE: [birth year] DOS: 03/27/2018 CARDIOLOGY CONSULTATION REASON FOR CONSULTATION: Bacteremia, consider transesophageal echocardiography, atrial fibrillation, diastolic heart failure. HISTORY OF PRESENT ILLNESS: The patient is a 53-year-old man who has a history of morbid obesity with a BMI greater than 60. He also has paroxysmal atrial fibrillation with Eliquis anticoagulation for stroke prophylaxis, chronic diastolic heart failure, hypertension, diabetes, hyperlipidemia, obstructive sleep apnea, obstructive lung disease, and chronic tobacco abuse. He has had several hospitalizations for heart failure, atrial fibrillation with a rapid ventricular response, etc. He was last hospitalized in 01/2018. An echocardiogram at that time was a technically difficult and limited examination. The left ventricle was grossly normal in size with an ejection fraction about 55%. Valves were poorly visualized. He came back into the hospital on this occasion with left shoulder pain. He had actually been seen in the ER several days previously with similar pain, but now it has gotten worse. He also noticed worsening dyspnea and wheezing, but denied any fevers or chills. A chest x-ray showed mild vascular congestion. He did have blood cultures drawn because his white count was 11,000 and he appeared septic. Blood cultures obtained on 03/24/2018 were positive for Enterococcus faecalis in multiple bottles. Since we already knew that his echocardiogram was limited, a KELLEN was requested. PAST MEDICAL HISTORY: Includes: 1. Paroxysmal atrial fibrillation with rapid ventricular response. 2. Pierre's palsy. 3. Chronic heart failure with preserved left ventricular ejection fraction. 4. Chronic respiratory failure. 5. Chronic obstructive pulmonary disease. 6. Obstructive sleep apnea treated with BiPAP at home. 7. Essential hypertension. 8. Hyperlipidemia. 9. Type 2 diabetes mellitus, on insulin. 10. Morbid obesity with body mass index greater than 60. 11. Vitamin B12 deficiency. PAST SURGICAL HISTORY: History of umbilical hernia repair, appendectomy, cholecystectomy and tonsillectomy. REVIEW OF SYSTEMS: The patient denies diplopia or loss of vision. He has felt dyspneic and weaker lately. He does note that he has lost 40 or 50 pounds in the last several months and attributes this to changing his diet. He has had increased cough, wheezing and dyspnea. He denies nausea or vomiting. He denies focal weakness. He denies blood in his stools or urine. He has noted persistent diarrhea. He has noticed increased swelling in his legs lately. He denies polyuria or polydipsia. Remainder of the review of systems is negative [place], [place] REPORT OF CONSULTATION NAME: RUTHIE MONTELONGO SR UNIT #: [id number] ROOM: 508 DOCTOR: PATRICIA BAZAN MD BIRTHDATE: [birth year] except as noted above. FAMILY HISTORY: The patient's mother had obesity, diabetes, hypertension, and obesity. She suffered from a heart attack at age 52 and at age 55 from ovarian cancer. His father at age 82 from throat cancer. A sister at age 60 from colon cancer. MEDICATIONS PRIOR TO ADMISSION: Albuterol by nebulizer t.i.d. p.r.n., Symbicort 2 puffs twice a day, Atrovent by nebulizer every 4 hours p.r.n., oxygen 3 liters by continuous nasal cannula, amitriptyline 10 mg at bedtime, apixaban 5 mg b.i.d., cyanocobalamin 100 mcg p.o. daily, diltiazem 360 mg daily, folic acid 1 mg daily, furosemide 40 mg twice a day, gabapentin 300 mg 3 times a day, metoprolol 50 mg b.i.d., multivitamin with iron once a day, omeprazole 20 mg b.i.d., potassium 10 mEq b.i.d., Spiriva 18 mcg inhaled daily, Humalog insulin before meals and at bedtime by sliding scale and Lantus insulin 15 units at bedtime. ALLERGIES: The patient has no known drug allergies. SOCIAL HISTORY: The patient lives alone. He does still smoke one-half to 1 pack of cigarettes a day. He had a history of alcohol abuse, but quit many years ago. PHYSICAL EXAMINATION: GENERAL: The patient is a morbidly obese white male who is awake, alert and oriented. VITAL SIGNS: Pulse is 93 and regular, blood pressure is 116/77. He has temperature of 98.4. He weighs 199 kg and has a body mass index of 59.5 after recent weight loss. HEENT: Normocephalic and atraumatic. Extraocular muscles are intact. Sclerae are clear. Pupils equal, round and react to light. The oral mucosa is moist. Tongue is midline. NECK: Supple. He has no jugular distention or hepatojugular reflux. Carotids are full. LUNGS: Respirations are unlabored at rest. He does have marked expiratory prolongation and bilateral wheezes in all lung umanzor with a few crackles at the bases. He has no presacral edema or chest wall tenderness. CARDIOVASCULAR: His heart has a regular rhythm with an S4 gallop. There is a grade 2/6 holosystolic murmur along the left sternal border radiating toward the apex. No diastolic murmurs are heard. The PMI could not be felt. There is no precordial heave, lift or thrill. ABDOMEN: Massively obese. There is no fluid wave. He has no tenderness or masses. EXTREMITIES: Showed chronic stasis changes with 3+ pitting edema. Peripheral pulses could not be felt. LABORATORY DATA: Hemoglobin is 12.9 with hematocrit 42.5, there are 12,600 white cells and 247,000 platelets. Sodium is 140, potassium 4.1, chloride 99, CO2 32, BUN 17, creatinine 0.93, sugars 316. Troponin levels were normal. Albumin is 2.8 with a total protein of 7.6. [place], [place] REPORT OF CONSULTATION NAME: RUTHIE MONTELONGO SR UNIT #: [id number] ROOM: 508 DOCTOR: PATRICIA BAZAN MD BIRTHDATE: [birth year] IMPRESSIONS: 1. Enterococcus faecalis bacteremia. 2. Severe chronic obstructive pulmonary disease with chronic respiratory failure and ongoing cigarette abuse. 3. Chronic heart failure with preserved ejection fraction. 4. Diabetes mellitus, on insulin. 5. Super morbid obesity. 6. Weight loss, which is probably unexplained. 7. Tachycardia. 8. Essential hypertension. 9. Hyperlipidemia. 10. Paroxysmal atrial fibrillation. PLAN: We will proceed with a transesophageal echocardiogram to evaluate the patient for endocarditis. For now, we would continue his current cardiac medications with probable increase in his diuresis if tolerated by renal functions, blood pressure, etc. Further recommendations will depend upon the results of his KELLEN. [facility] and I thank the hospitalist physicians for asking our advice regarding the patient's care. PATRICIA BAZAN MD CM:CONSTR:REPORT OF CONSULTATION 1320 03/27/18 1615 interface
--- NOTE | ~2018-03-23 | CON ---
[place], [place] REPORT OF CONSULTATION [id number] #: [id number] ROOM: 508 DOCTOR: GLORIA CARRASQUILLO,JANUARY BIRTHDATE: [birth year] DOS: 03/27/2018 HISTORY OF PRESENT ILLNESS: The patient is a 53-year-old morbidly obese male who was admitted with high-grade enterococcal bacteremia with positive blood cultures on the and the . Repeat blood cultures from the remained sterile. He is alert and oriented, complaining of pain of the left shoulder as well as his neck. He is tolerating the antibiotics. No fevers or chills. No nausea, vomiting or diarrhea. No rash or itch. No cough or shortness of breath. He is on ampicillin and Rocephin. He underwent a KELLEN today, which showed multiple vegetations on the aortic valve measuring up to 0.5 cm in length as well as moderate to severe mitral valve insufficiency with a bulky vegetation on the middle cusp of the anterior mitral leaflet up to 1 cm in maximum dimension. He also has a large patent foramen ovale with shunting noted. LABORATORY DATA: WBCs 12.6, platelets 247. BUN 17, creatinine 0.93, AST 48, ALT 28, creatinine 0.9, BUN 17. Cultures as above. VITAL SIGNS: Temperature 98.3, pulse 100, respirations 20, BP 107/52. REVIEW OF SYSTEMS: Otherwise negative than as above as well as bilateral lower extremity edema. CURRENT MEDICATIONS: Dulcolax, MiraLax, ampicillin, Solu-Medrol, Rocephin, Tylenol, Lantus, Buckhorn, Elavil, Toradol, Bumex, K-Dur, Prilosec, Toprol, folic acid, Cardizem, Eliquis, Humalog, Dulera, DuoNeb, Restoril, Zofran, milk of mag and Dulcolax. ALLERGIES: No known drug allergies. PHYSICAL EXAMINATION: GENERAL: Alert and oriented, a 53-year-old morbidly obese male, in no acute distress. HEENT: Normocephalic, no thrush. LUNGS: Diminished bilaterally. Respirations even and unlabored. HEART: Regular rhythm, difficult to auscultate due to body habitus. No murmur appreciated. ABDOMEN: Soft, obese, nontender. EXTREMITIES: Significant tenderness of left anterior shoulder, possibly some mild erythema as well as tenderness along his cervical spine. +3 to 4 edema bilateral lower extremities. SKIN: Warm, dry, free of rashes. Multiple tattoos. 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 PLAN: I am concerning he probably has a left septic shoulder. He also needs to have an MRI of the spine to rule out vertebral osteomyelitis. We will check an MRI with IV contrast. Consult orthopedic to workup a probable left septic shoulder. Followup on repeat blood cultures. Consideration may need to be [place], [place] REPORT OF CONSULTATION NAME: RUTHIE MONTELONGO SR UNIT #: [id number] ROOM: 508 DOCTOR: GLORIA CARRASQUILLOJANUARY BIRTHDATE: [birth year] given to transferring to a tertiary care hospital for evaluation by cardiothoracic surgeon due to the size of his vegetation. Case to be discussed with Dr. Johnson. We will continue ampicillin and Rocephin for his endocarditis. BROCK NEIDA CASTRO Jennifer Johnson MD CM:CONSTR:REPORT OF CONSULTATION 1749 03/27/18 192 interface
--- NOTE | ~2018-03-23 | PR ---
[place], [place] PROGRESS NOTE [id number] #[facility] [id number] ROOM: 508 DOCTOR: PATRICIA BAZAN MD BIRTHDATE: [birth year] DOS: 03/29/2018 CARDIOLOGY PROGRESS NOTE SUBJECTIVE: The patient was seen at his bedside today on 03/29/2018 for followup of endocarditis. The patient feels well. He is breathing easily and denies fevers or chills. He did have a lot of questions about his transesophageal echocardiographic findings, source of infection, management strategies, etc. and I answered these all to the best of my ability. PHYSICAL EXAMINATION: VITAL SIGNS: On exam, his pulse is 90 and regular, blood pressure 128/74. He is afebrile. NECK: Supple. He has no jugular distention. Carotids are full. LUNGS: Respirations are unlabored at rest. He has decreased breath sounds at the bases. HEART: Has a regular rhythm with distant tones. There is grade 1/6 holosystolic murmur at the apex. ABDOMEN: Massively obese. EXTREMITIES: Showed trace edema at the ankles. IMPRESSION: 1. 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 2. Severe chronic obstructive pulmonary disease with chronic respiratory failure and ongoing cigarette abuse. 3. Bulky vegetation on the anterior mitral valve leaflet measuring approximately 1 cm in diameter. 4. Chronic heart failure with preserved ejection fraction. 5. Diabetes mellitus, on insulin. 6. Super morbid obesity. 7. Recent weight loss. 8. Tachycardia. 9. Essential hypertension. 10. Patent foramen ovale. 11. History of paroxysmal atrial fibrillation. PLAN: The patient is being sent to [facility] for a cardiothoracic surgery opinion. We will await their recommendations. I thank the hospitalist physicians for asking our advice regarding his management. [place], [place] PROGRESS NOTE NAME: RUTHIE MONTELONGO SR UNIT #: [id number] ROOM: 508 DOCTOR: PATRICIA BAZAN MD BIRTHDATE: [birth year] PATRICIA BAZAN MD CM:PNTRANS [id number] PATRICIA BAZAN MD 04/01/18 1905 interface
[2018-03-23 19:22] VITALS: BP 137/75
[2018-03-23 20:29] LABS: BASO # 0.1 10*3/uL (0.0-0.1); BASO % 0.5 % (0.0-1.0); EOS # 0.1 10*3/uL (0.0-0.4); EOS % 0.9 % (1.0-4.0); HEMATOCRIT 42.8 % (42.0-52.0); HEMOGLOBIN 13.5 g/dl (14.0-18.0); LYMPH # 1.4 10*3/uL (1.3-4.4); LYMPH % 10.8 % (27.0-41.0); MEAN CELL VOLUME 89.4 fl (80.0-94.0); MEAN CORPUSCULAR HGB 28.2 pg (27.0-31.0); MEAN CORPUSCULAR HGB CONC 31.5 g/dl (33.0-37.0); MEAN PLATELET VOLUME 10.2 fl (9.6-12.3); MONO % 7.4 % (3.0-9.0); NEUT # 10.2 10*3/uL (2.3-7.9); NEUT % 79.8 % (47.0-73.0); PLATELET COUNT AUTOMATED 221 10*3/uL (130-400); RED BLOOD COUNT 4.79 10*6/uL (4.50-5.90); RED CELL DISTRI WIDTH 13.8 % (0-14.5); WHITE BLOOD COUNT 12.8 10*3/uL (4.8-10.8)
[2018-03-23 20:32] VITALS: BP 128/78
[2018-03-23 20:41] LABS: ALBUMIN 2.7 gm/dl (3.1-4.5); ALKALINE PHOSPHATASE 84 U/L (45-117); BUN 9 mg/dl (7-24); CHLORIDE 98 mmol/L (98-107); CREATININE 0.98 mg/dL (0.70-1.30); POTASSIUM 3.8 mmol/L (3.5-5.1); SGOT/AST 62 IU/L (3-35); SGPT/ALT 33 U/L (12-78); SODIUM 136 mmol/L (136-145); TOTAL PROTEIN 7.7 gm/dL (6.4-8.2)
[2018-03-23 20:44] LABS: TROPONIN I < 0.015 ng/ml (<0.045)
[2018-03-23 21:32] VITALS: BP 129/72
[2018-03-23 22:37] VITALS: BP 115/69
[2018-03-23 22:49] VITALS: BP 115/69
[2018-03-24 02:33] LABS: BASO % 0.4 % (0.0-1.0); EOS # 0.1 10*3/uL (0.0-0.4); EOS % 0.5 % (1.0-4.0); HEMATOCRIT 39.9 % (42.0-52.0); LYMPH # 1.4 10*3/uL (1.3-4.4); LYMPH % 12.2 % (27.0-41.0); MEAN CELL VOLUME 92.1 fl (80.0-94.0); MEAN CORPUSCULAR HGB 27.7 pg (27.0-31.0); MEAN CORPUSCULAR HGB CONC 30.1 g/dl (33.0-37.0); MEAN PLATELET VOLUME 9.9 fl (9.6-12.3); MONO # 0.8 10*3/uL (0.1-1.0); MONO % 7.3 % (3.0-9.0); NEUT # 8.8 10*3/uL (2.3-7.9); NEUT % 78.8 % (47.0-73.0); PLATELET COUNT AUTOMATED 188 10*3/uL (130-400); RED BLOOD COUNT 4.33 10*6/uL (4.50-5.90); WHITE BLOOD COUNT 11.2 10*3/uL (4.8-10.8)
[2018-03-24 02:52] LABS: ALBUMIN 2.4 gm/dl (3.1-4.5); ALKALINE PHOSPHATASE 68 U/L (45-117); BUN 9 mg/dl (7-24); CHLORIDE 100 mmol/L (98-107); CREATININE 0.85 mg/dL (0.70-1.30); PHOSPHOROUS 3.9 mg/dL (2.5-4.9); POTASSIUM 4.1 mmol/L (3.5-5.1); SGOT/AST 58 IU/L (3-35); SGPT/ALT 25 U/L (12-78); SODIUM 137 mmol/L (136-145); TOTAL PROTEIN 6.7 gm/dL (6.4-8.2)
[2018-03-24 08:00] VITALS: BP 107/64
[2018-03-24 12:00] VITALS: BP 111/70
[2018-03-24 16:00] VITALS: BP 101/56
[2018-03-24 20:00] VITALS: BP 114/67
[2018-03-25] VITALS: BP 108/51; BP 115/68
[2018-03-25 07:00] LABS: BUN 13 mg/dl (7-24); CHLORIDE 98 mmol/L (98-107); CREATININE 0.88 mg/dL (0.70-1.30); POTASSIUM 4.4 mmol/L (3.5-5.1); SODIUM 139 mmol/L (136-145)
[2018-03-25 07:01] LABS: BASO % 0.2 % (0.0-1.0); HEMATOCRIT 40.1 % (42.0-52.0); HEMOGLOBIN 12.1 g/dl (14.0-18.0); MEAN CELL VOLUME 91.6 fl (80.0-94.0); MEAN CORPUSCULAR HGB 27.6 pg (27.0-31.0); MEAN CORPUSCULAR HGB CONC 30.2 g/dl (33.0-37.0); MEAN PLATELET VOLUME 10.6 fl (9.6-12.3); MONO # 0.6 10*3/uL (0.1-1.0); NEUT # 9.3 10*3/uL (2.3-7.9); NEUT % 84.6 % (47.0-73.0); PLATELET COUNT AUTOMATED 183 10*3/uL (130-400); RED BLOOD COUNT 4.38 10*6/uL (4.50-5.90); RED CELL DISTRI WIDTH 13.7 % (0-14.5)
[2018-03-25 08:00] VITALS: BP 100/58
[2018-03-25 12:00] VITALS: BP 105/62
[2018-03-25 16:00] VITALS: BP 106/59
[2018-03-25 20:00] VITALS: BP 92/52
[2018-03-26] VITALS: BP 106/70
[2018-03-26 06:34] LABS: BASO % 0.1 % (0.0-1.0); EOS % 0.1 % (1.0-4.0); HEMATOCRIT 38.1 % (42.0-52.0); HEMOGLOBIN 11.8 g/dl (14.0-18.0); LYMPH % 8.7 % (27.0-41.0); MEAN CELL VOLUME 90.1 fl (80.0-94.0); MEAN CORPUSCULAR HGB 27.9 pg (27.0-31.0); MEAN PLATELET VOLUME 10.7 fl (9.6-12.3); MONO # 0.6 10*3/uL (0.1-1.0); MONO % 4.7 % (3.0-9.0); NEUT # 10.2 10*3/uL (2.3-7.9); NEUT % 85.2 % (47.0-73.0); PLATELET COUNT AUTOMATED 198 10*3/uL (130-400); RED BLOOD COUNT 4.23 10*6/uL (4.50-5.90); RED CELL DISTRI WIDTH 13.9 % (0-14.5); WHITE BLOOD COUNT 11.9 10*3/uL (4.8-10.8)
[2018-03-26 06:55] LABS: ALBUMIN 2.4 gm/dl (3.1-4.5); ALKALINE PHOSPHATASE 57 U/L (45-117); BUN 17 mg/dl (7-24); CHLORIDE 100 mmol/L (98-107); CREATININE 0.81 mg/dL (0.70-1.30); POTASSIUM 4.2 mmol/L (3.5-5.1); SGOT/AST 16 IU/L (3-35); SGPT/ALT 19 U/L (12-78); SODIUM 139 mmol/L (136-145); TOTAL PROTEIN 6.7 gm/dL (6.4-8.2)
[2018-03-26 08:00] VITALS: BP 120/75
[2018-03-26 12:00] VITALS: BP 105/60
[2018-03-26 16:00] VITALS: BP 121/73
[2018-03-26 20:00] VITALS: BP 119/65
[2018-03-27] VITALS (9 sets, daily range): BP systolic 106–133; BP diastolic 43–81
[2018-03-27 07:19] LABS: BASO % 0.1 % (0.0-1.0); EOS % 0.1 % (1.0-4.0); HEMATOCRIT 42.5 % (42.0-52.0); HEMOGLOBIN 12.9 g/dl (14.0-18.0); LYMPH # 1.1 10*3/uL (1.3-4.4); LYMPH % 8.7 % (27.0-41.0); MEAN CELL VOLUME 90.2 fl (80.0-94.0); MEAN CORPUSCULAR HGB 27.4 pg (27.0-31.0); MEAN CORPUSCULAR HGB CONC 30.4 g/dl (33.0-37.0); MEAN PLATELET VOLUME 10.8 fl (9.6-12.3); MONO # 0.6 10*3/uL (0.1-1.0); MONO % 4.7 % (3.0-9.0); NEUT # 10.7 10*3/uL (2.3-7.9); NEUT % 85.1 % (47.0-73.0); PLATELET COUNT AUTOMATED 247 10*3/uL (130-400); RED BLOOD COUNT 4.71 10*6/uL (4.50-5.90); RED CELL DISTRI WIDTH 13.8 % (0-14.5); WHITE BLOOD COUNT 12.6 10*3/uL (4.8-10.8)
[2018-03-27 07:34] LABS: CHLORIDE 99 mmol/L (98-107); POTASSIUM 4.1 mmol/L (3.5-5.1); SODIUM 140 mmol/L (136-145)
[2018-03-27 07:44] LABS: ALBUMIN 2.8 gm/dl (3.1-4.5); ALKALINE PHOSPHATASE 62 U/L (45-117); BUN 17 mg/dl (7-24); CREATININE 0.93 mg/dL (0.70-1.30); SGOT/AST 48 IU/L (3-35); SGPT/ALT 28 U/L (12-78); TOTAL PROTEIN 7.6 gm/dL (6.4-8.2)
[2018-03-28] VITALS: BP 98/52
[2018-03-28 07:00] LABS: BASO % 0.2 % (0.0-1.0); EOS % 0.2 % (1.0-4.0); HEMATOCRIT 44.6 % (42.0-52.0); HEMOGLOBIN 13.6 g/dl (14.0-18.0); LYMPH # 1.3 10*3/uL (1.3-4.4); LYMPH % 10.1 % (27.0-41.0); MEAN CELL VOLUME 91.2 fl (80.0-94.0); MEAN CORPUSCULAR HGB 27.8 pg (27.0-31.0); MEAN CORPUSCULAR HGB CONC 30.5 g/dl (33.0-37.0); MEAN PLATELET VOLUME 10.3 fl (9.6-12.3); MONO # 0.6 10*3/uL (0.1-1.0); MONO % 4.6 % (3.0-9.0); NEUT % 83.9 % (47.0-73.0); PLATELET COUNT AUTOMATED 238 10*3/uL (130-400); RED BLOOD COUNT 4.89 10*6/uL (4.50-5.90); RED CELL DISTRI WIDTH 13.6 % (0-14.5); WHITE BLOOD COUNT 13.1 10*3/uL (4.8-10.8)
[2018-03-28 07:07] LABS: ALBUMIN 2.9 gm/dl (3.1-4.5); ALKALINE PHOSPHATASE 64 U/L (45-117); BUN 18 mg/dl (7-24); CHLORIDE 97 mmol/L (98-107); CREATININE 1.03 mg/dL (0.70-1.30); POTASSIUM 4.2 mmol/L (3.5-5.1); SGOT/AST 102 IU/L (3-35); SGPT/ALT 61 U/L (12-78); SODIUM 140 mmol/L (136-145); TOTAL PROTEIN 7.4 gm/dL (6.4-8.2)
[2018-03-28 08:00] VITALS: BP 114/70
[2018-03-28 10:03] LABS: HEPATITIS B SURFACE AG Negative (Negative); HEPATITIS C VIRUS ANTIBODY <0.1 s/co (0.0-0.9)
[2018-03-28 12:00] VITALS: BP 118/64
[2018-03-28 13:03] LABS: ACID FAST SPEC PROCESSING Concentration (.)
[2018-03-28 16:00] VITALS: BP 112/65
[2018-03-28] MEDS ORDERED: Lantus SC (16:45)
[2018-03-28 20:00] VITALS: BP 110/46
[2018-03-29] VITALS: BP 97/56
[2018-03-29 08:00] VITALS: BP 128/74
[2018-03-29 12:00] VITALS: BP 127/66
[2018-03-29 16:00] VITALS: BP 116/59
[2018-03-29 20:00] VITALS: BP 106/61
[2018-03-30] VITALS: BP 119/89
[2018-03-30 08:00] VITALS: BP 118/66
[2018-03-30 12:00] VITALS: BP 140/80
[2018-03-30] MEDS ORDERED: BUMEX2.5 MG/10 IV (13:09)
[2018-03-30] MEDS ORDERED: SOLU-MEDRO40 MG/1 ML IV (13:09)
[2018-03-30] MEDS ORDERED: AMPICILLIN1 GM IV (13:09)
[2018-03-30] MEDS ORDERED: CEFTRIAXON2 GM/50 ML IV (13:09)
== END 2018-03-30 15:45 | disposition short-term general hospital (02) | DRG 871 ==
LOC: ED 19:18 → 5E 21:54 → EDHOLD 21:54 → 5E 22:30
PROVIDERS: Emergency Medicine; Internal Medicine; Internal Medicine Hospice and Palliative Medicine; Registered Nurse; Student in an Organized Health Care Education/Training Program
PROC: 5A09357 Assistance with Respiratory Ventilation, Less than 24 Consecutive Hours, Continuous Positive Airway Pressure (ICD-10-PCS; principal; 2018-03-24)
PROC: B24BZZ4 Ultrasonography of Heart with Aorta, Transesophageal (ICD-10-PCS; 2018-03-27)
PROC: 5A09357 Assistance with Respiratory Ventilation, Less than 24 Consecutive Hours, Continuous Positive Airway Pressure (ICD-10-PCS; 2018-03-29)
DX: A41.9 Sepsis, unspecified organism (principal); E43 Unspecified severe protein-calorie malnutrition; I33.0 Acute and subacute infective endocarditis; I11.0 Hypertensive heart disease with heart failure; J96.11 Chronic respiratory failure with hypoxia; I50.32 Chronic diastolic (congestive) heart failure; J18.9 Pneumonia, unspecified organism; J44.1 Chronic obstructive pulmonary disease with (acute) exacerbation; J44.0 Chronic obstructive pulmonary disease with (acute) lower respiratory infection; Z68.43 Body mass index [BMI] 50.0-59.9, adult; I48.0 Paroxysmal atrial fibrillation; R65.20 Severe sepsis without septic shock; M75.52 Bursitis of left shoulder; R74.0 Nonspecific elevation of levels of transaminase and lactic acid dehydrogenase [LDH]; D64.9 Anemia, unspecified; E78.00 Pure hypercholesterolemia, unspecified; G47.33 Obstructive sleep apnea (adult) (pediatric); Z99.81 Dependence on supplemental oxygen; E53.8 Deficiency of other specified B group vitamins; E66.01 Morbid (severe) obesity due to excess calories; B96.89 Other specified bacterial agents as the cause of diseases classified elsewhere; I87.2 Venous insufficiency (chronic) (peripheral); E78.5 Hyperlipidemia, unspecified; I08.0 Rheumatic disorders of both mitral and aortic valves; G51.0 Bell's palsy; E11.65 Type 2 diabetes mellitus with hyperglycemia; E55.9 Vitamin D deficiency, unspecified; Z79.899 Other long term (current) drug therapy; Z87.01 Personal history of pneumonia (recurrent); Z90.49 Acquired absence of other specified parts of digestive tract; Z90.89 Acquired absence of other organs; Z87.891 Personal history of nicotine dependence; Z82.49 Family history of ischemic heart disease and other diseases of the circulatory system; Z83.3 Family history of diabetes mellitus; Z80.0 Family history of malignant neoplasm of digestive organs; Z80.8 Family history of malignant neoplasm of other organs or systems; Z83.6 Family history of other diseases of the respiratory system; Z84.89 Family history of other specified conditions; Z79.4 Long term (current) use of insulin

== ENCOUNTER → 2018-08-20 | Outpatient (CLI) | payer MEDICARE ==
[~2018-08-20] MED LIST changes: +ACETAZOLAMIDE500 M2 PO; +AMIODARONE HYD200 MG PO; +AMPICILLIN1 GM IV; +ASPIRIN CHEWABL81 MG PO; +BUMEX2.5 MG/10 IV; +CALCIUM + VITA1 EAC2 PO; +CEFTRIAXON2 GM/50 ML IV; +DRISDOL PO; +GOOD NEIGHBOR L10 MG PO; +GOOD NEIGHBOR M25 M1 PO; +HUMULIN N100 UNIT/1 SQ; +Ipratropium Brom3 ML INH; +Lantus SC; -Lasix80 MG PO; +MIRALAX17 GM PO; +NEURONTIN100 MG PO; -NEURONTIN300 MG PO; +NOVOLOG10 ML SC; +PROTONIX40 MG PO; +SALINE NOSE SPR45 ML NAS; +SENNA8.6 MG PO; +SOLU-MEDRO40 MG/1 ML IV; +VITAMIN B121000 MC1 PO; +VITAMIN D22000 UNIT PO; +ZITHROMAX250 MG PO
== END | disposition home or self-care (01) ==
LOC: RESCLI 02:39
DX: J44.1 Chronic obstructive pulmonary disease with (acute) exacerbation (principal); J96.01 Acute respiratory failure with hypoxia; J96.02 Acute respiratory failure with hypercapnia; I48.0 Paroxysmal atrial fibrillation; Z79.899 Other long term (current) drug therapy; Z79.82 Long term (current) use of aspirin

== ENCOUNTER → 2018-09-28 | Outpatient (CLI) | payer OTHER | END | disposition home or self-care (01) | LOC: RAD 16:10 | DX: M25.541 Pain in joints of right hand (principal); R20.0 Anesthesia of skin ==

== ENCOUNTER → 2018-11-14 | Outpatient (CLI) | payer MEDICARE, OTHER ==
[~2018-11-14] MED LIST changes: +DOXYCYCLINE100 MG PO
== END | disposition home or self-care (01) ==
LOC: RESCLI 13:04
DX: I13.0 Hypertensive heart and chronic kidney disease with heart failure and stage 1 through stage 4 chronic kidney disease, or unspecified chronic kidney disease (principal); E11.22 Type 2 diabetes mellitus with diabetic chronic kidney disease; E11.69 Type 2 diabetes mellitus with other specified complication; N18.4 Chronic kidney disease, stage 4 (severe); I50.20 Unspecified systolic (congestive) heart failure; I50.30 Unspecified diastolic (congestive) heart failure; E55.9 Vitamin D deficiency, unspecified; E66.09 Other obesity due to excess calories; R26.89 Other abnormalities of gait and mobility; J84.10 Pulmonary fibrosis, unspecified; J43.9 Emphysema, unspecified; G89.29 Other chronic pain; I48.2 Chronic atrial fibrillation; E78.2 Mixed hyperlipidemia; K21.9 Gastro-esophageal reflux disease without esophagitis; M54.40 Lumbago with sciatica, unspecified side; F32.9 Major depressive disorder, single episode, unspecified; M15.9 Polyosteoarthritis, unspecified; E53.8 Deficiency of other specified B group vitamins; R00.0 Tachycardia, unspecified; J96.01 Acute respiratory failure with hypoxia; E66.01 Morbid (severe) obesity due to excess calories; Z79.4 Long term (current) use of insulin; Z79.899 Other long term (current) drug therapy; Z90.49 Acquired absence of other specified parts of digestive tract; Z99.81 Dependence on supplemental oxygen; Z88.8 Allergy status to other drugs, medicaments and biological substances

== ENCOUNTER 2019-01-18 17:04 | Inpatient (IN) | payer MEDICARE, OTHER ==
[~2019-01-18] VITALS: Ht 182.8 cm; Wt 194.4 kg
--- NOTE | ~2019-01-18 | EKG ---
[place], [place] ELECTROCARDIOGRAM REPORT NAME: RUTHIE MONTELONGO SR UNIT #: [id number] ROOM: 422 DOCTOR: BRAYAN DRAFT REPORT BIRTHDATE: [birth year] [facility] Test Date: 2019-01-18 Test Time: 18:32:37 Pat Name: RUTHIE MONTELONGO Department: Room: 422 Gender: M Autotransfusionist: : 1965 Requested By: GEOFFREY PEREZ Order Number: [id number] Reading MD: Sunitha Newton MD Measurements Intervals [place] Rate: 75 P: [place]: QRS: 98 QRSD: 115 T: 47 QT: 401 QTc: 448 Interpretive Statements Atrial flutter with predominant 3:1 AV block Nonspecific intraventricular conduction delay Probable inferior infarct, acute Baseline wander in lead(s) V2 Compared to ECG 01/11/2019 14:41:36 AV block, advanced (high-grade) now present Myocardial infarct finding now present Atrial fibrillation no longer present Prolonged QT interval no longer present Electronically Signed On 01-20-2019 10:07:48 PDT by Sunitha Newton MD CM:EKGRPT:ELECTROCARDIOGRAM REPORT [id number] 1007 GEOFFREY SCHMIDT DRAFT REPORT GEOFFREY THOMAS
[~2019-01-18 17:04] MED LIST changes: -DOXYCYCLINE100 MG PO
[2019-01-18 17:05] VITALS: BP 121/59
[2019-01-18 18:39] LABS: BASO # 0.1 10*3/uL (0.0-0.1); BASO % 0.4 % (0.0-1.0); EOS # 0.2 10*3/uL (0.0-0.4); EOS % 0.8 % (1.0-4.0); HEMATOCRIT 45.2 % (42.0-52.0); HEMOGLOBIN 13.2 g/dl (14.0-18.0); LYMPH # 2.7 10*3/uL (1.3-4.4); LYMPH % 14.1 % (27.0-41.0); MEAN CELL VOLUME 87.1 fl (80.0-94.0); MEAN CORPUSCULAR HGB 25.4 pg (27.0-31.0); MEAN CORPUSCULAR HGB CONC 29.2 g/dl (33.0-37.0); MEAN PLATELET VOLUME 10.6 fl (9.6-12.3); MONO # 1.5 10*3/uL (0.1-1.0); MONO % 7.5 % (3.0-9.0); NEUT # 14.6 10*3/uL (2.3-7.9); NEUT % 75.9 % (47.0-73.0); PLATELET COUNT AUTOMATED 198 10*3/uL (130-400); RED BLOOD COUNT 5.19 10*6/uL (4.50-5.90); RED CELL DISTRI WIDTH 16.1 % (0-14.5); WHITE BLOOD COUNT 19.3 10*3/uL (4.8-10.8)
[2019-01-18 18:47] VITALS: BP 105/70
[2019-01-18 18:55] LABS: ACT PARTIAL THROMBO TIME 23.6 SECONDS (20.8-31.5)
[2019-01-18 18:56] LABS: ALBUMIN 2.9 gm/dl (3.1-4.5); ALKALINE PHOSPHATASE 105 U/L (45-117); BUN 18 mg/dl (7-24); CHLORIDE 104 mmol/L (98-107); CREATININE 1.09 mg/dL (0.70-1.30); LIPASE 68 U/L (73-393); POTASSIUM 3.5 mmol/L (3.5-5.1); SGOT/AST 13 IU/L (3-35); SGPT/ALT 25 U/L (12-78); SODIUM 140 mmol/L (136-145); TOTAL PROTEIN 6.3 gm/dL (6.4-8.2)
[2019-01-18 18:57] LABS: TROPONIN I < 0.015 ng/ml (<0.045)
--- NOTE | 2019-01-18 19:32 | NUR ---
THE PT VOIDED BEFORE I COULD TELL HIM I NEEDED A URINE SAMPLE. HE WILL TRY AGAIN SOON
[2019-01-18 20:12] VITALS: BP 110/46
--- NOTE | 2019-01-18 20:38 | NUR ---
THE PATIENT HAS NOT BEEN ABLE TO PROVIDE A URINE SAMPLE
--- NOTE | 2019-01-18 20:42 | NUR ---
THE PATIENT WAS GIVEN A BOX LUNCH PER HIS REQUEST FOR SOMETHING TO EAT
--- NOTE | 2019-01-18 20:59 | NUR ---
A PHOTO WAS TAKEN OF THE WOUND TO THE BACK OF THE LEFT LOWER LEG
[2019-01-18 22:00] VITALS: BP 143/83
--- NOTE | 2019-01-18 22:00 | NUR ---
Time: 2199 A 53 year old MALE admitted to 4E under services of ADELAIDA LOPEZ DO. Pt. arrived via OTHER from ER. Chief complaint: CELLULITIS. SUSAN TORRE
[2019-01-19 01:00] VITALS: BP 100/51
[2019-01-19 05:22] LABS: BILIRUBIN NEGATIVE (NEGATIVE); BLOOD 1+ (NEGATIVE); CLARITY CLEAR (CLEAR); COLOR YELLOW (YELLOW); GLUCOSE NEGATIVE (NEGATIVE); KETONE NEGATIVE (NEGATIVE); LEUKO ESTERASE NEGATIVE (NEGATIVE); NITRITE NEGATIVE (NEGATIVE); SPECIFIC GRAVITY 1.025 (1.005-1.030); UROBILINOGEN 0.2 E.U./dl (0.2-1.0)
[2019-01-19 05:27] LABS: RBC 16-20 rbc/hpf (0-2)
[2019-01-19 06:54] LABS: HEMATOCRIT 48.1 % (42.0-52.0); HEMOGLOBIN 13.7 g/dl (14.0-18.0); MEAN CELL VOLUME 89.7 fl (80.0-94.0); MEAN CORPUSCULAR HGB 25.6 pg (27.0-31.0); MEAN CORPUSCULAR HGB CONC 28.5 g/dl (33.0-37.0); MEAN PLATELET VOLUME 10.9 fl (9.6-12.3); PLATELET COUNT AUTOMATED 184 10*3/uL (130-400); RED BLOOD COUNT 5.36 10*6/uL (4.50-5.90); RED CELL DISTRI WIDTH 15.9 % (0-14.5); WHITE BLOOD COUNT 15.4 10*3/uL (4.8-10.8)
[2019-01-19 06:58] LABS: BUN 19 mg/dl (7-24); CHLORIDE 100 mmol/L (98-107); CREATININE 1.23 mg/dL (0.70-1.30); PHOSPHOROUS 4.5 mg/dL (2.5-4.9); POTASSIUM 3.8 mmol/L (3.5-5.1); SODIUM 139 mmol/L (136-145)
--- NOTE | 2019-01-19 07:20 | NUR ---
OFF BIPAP AND PLACED ON 6L/M NC. PT STATING HE USED 6L/M AT HOME. SAT 97%.
[2019-01-19 07:44] LABS: PLATELET SUFFICIENCY NORMAL (NORMAL); TOTAL CELLS COUNTED 100 #CELLS
[2019-01-19 08:00] VITALS: BP 120/64
[2019-01-19 12:00] VITALS: BP 113/56
--- NOTE | 2019-01-19 12:31 | NUR ---
BIPAP OFF BEFORE AEROSOL, 6L/M NC APPLIED.
[2019-01-19 16:00] VITALS: BP 115/61
--- NOTE | 2019-01-19 18:53 | NUR ---
NORCO GIVEN FOR C/O ABCK PAIN. RATES 8/10 ON PAIN SCALE. WILL MONITOR.
--- NOTE | 2019-01-19 19:49 | NUR ---
PATIENT SITTING UP ON SIDE OF BED AT THIS TIME. BIPAP IN PLACE. PATIENT APPEARS TO BE IN GOOD SPIRITS. LEGS ARE SWOLLEN AND RED. MILD SEEPAGE FROM RIGHT LEG. PATIENT DENIES ANY COMPLAINTS AT THIS TIME. NO S/S OF DISTRESS. CALL LIGHT WITHIN REACH.
[2019-01-19 20:00] VITALS: BP 98/50
[2019-01-20] VITALS: BP 106/53
--- NOTE | 2019-01-20 00:59 | NUR ---
PATIENT RECEIVED NORCO FOR PAIN RATED 7/10.
--- NOTE | 2019-01-20 06:24 | NUR ---
REGINALD LOPEZRUTHIE Mckoy [id number] Please refer to the physician's history and physical for past medical history, comorbid conditions, and allergies. Diagnosis: CELLULITIS, VOLUME OVERLOAD Valente Score: 23,LOW OR NO RISK WOUND DESCRIPTIONS: Location of the wound: Left posterior lower extremity Thickness: Partial Size: 0.6cm x 2.2cm x 0.1cm Tunneling: none Undermining: none Sinus Tract: none Presence of Exudate: Serous Amount: Moderate Color: Red Odor: None Periwound Skin Appearance: Edema, warmth, erythema Wound edges: approximated Pain (associated with wound): none at time of assessment How does patient state this happened? pt states [facility]. Patient is requesting to get his toenails cut because when he bends his toes it is causing him pain. Patient has pitting edema noted to ISAIAH's. Patient stated this area open up two days ago. Patient stated his legs are never this red or this swollen. Surface the patient is resting on: Isoflex SKIN PREVENTION RECOMMENDATION: 1. Pressure redistribution support surface as appropriate 2. Elevate heels 3. Remove boots/TEDS every shift and reapply 4. Head of bed 30 degrees as tolerated 5. Assess nutrition and hydration 6. Manage moisture 7. Avoid the use of containment devices while in bed 8. Use absorptive products on surfaces limit layers of linens on bed 9. Turn and reposition every 1-2 hours in bed and every 1 hour in chair as tolerated 10. Weight shifts every 15 minutes while up in chair 11. Offloading with pillows or device to keep heels elevated off bed 12. Monitor skin at least every shift 13. Inspect under medical devices twice a day WOUND TREATMENT RECOMMENDATIONS: Venous and arterial studies to ISAIAH's Consult podiatry for area to left lower extremity and patient is requesting toenails cut. Partial thickness guidelines: Cleanse left posterior lower extremity with nss and apply sureprep around the wound therahoney to wound bed cover with maxorb II then apply optifoam gentle.
[2019-01-20 07:16] LABS: BASO % 0.2 % (0.0-1.0); EOS # 0.1 10*3/uL (0.0-0.4); EOS % 0.3 % (1.0-4.0); HEMATOCRIT 46.6 % (42.0-52.0); HEMOGLOBIN 13.5 g/dl (14.0-18.0); LYMPH # 1.8 10*3/uL (1.3-4.4); LYMPH % 10.2 % (27.0-41.0); MEAN CELL VOLUME 89.3 fl (80.0-94.0); MEAN CORPUSCULAR HGB 25.9 pg (27.0-31.0); MEAN PLATELET VOLUME 10.7 fl (9.6-12.3); MONO % 5.7 % (3.0-9.0); NEUT # 14.5 10*3/uL (2.3-7.9); NEUT % 82.6 % (47.0-73.0); PLATELET COUNT AUTOMATED 185 10*3/uL (130-400); RED BLOOD COUNT 5.22 10*6/uL (4.50-5.90); RED CELL DISTRI WIDTH 16.1 % (0-14.5); WHITE BLOOD COUNT 17.5 10*3/uL (4.8-10.8)
[2019-01-20 07:32] LABS: BUN 22 mg/dl (7-24); CHLORIDE 101 mmol/L (98-107); POTASSIUM 3.5 mmol/L (3.5-5.1); SODIUM 140 mmol/L (136-145)
--- NOTE | 2019-01-20 07:49 | NUR ---
PT'S VANCO TROUGH LEVEL HIGH AT 21.8. 0800 DOSE HELD PER PHARMACY.
[2019-01-20 08:00] VITALS: BP 110/60
--- NOTE | 2019-01-20 09:00 | NUR ---
Family Consumer Science Teacher in to talk to patient. Patient states lives at home with disabled sister. There are no steps in the home. Physician: [facility] health services: [facility] 3 days a week Patient's level of ADLs: MINIMAL ASSIST Patient has working utilities: all working DME: motorized wheelchair, nebulizer, cpap, home oxygen, trilogy from [facility] emergency department Follow-up physician's appointment after d/c: will be made by hospitalist nurse director upon discharge Does patient want to access PORTAL?: no Discharge plan discussed with patient, patient lives at home with disabled sister, he uses a motorized wheelchair to ambulate, he has home oxygen and other respiratory equipement from [facility], patient states he will be going back home when able and denies any other home needs. STACI BAPTISTE
--- NOTE | 2019-01-20 09:20 | NUR ---
MEDICATED WITH NORCO PER PRN ORDER FOR COMPLAINTS OF LOWER BACK PAIN. WILL MONITOR FOR EFFECTIVENESS.
--- NOTE | 2019-01-20 09:32 | NUR ---
ECHO BEING DONE AT THIS TIME.
--- NOTE | 2019-01-20 09:52 | NUR ---
CALL PLACED TO [facility] REGARDING MED LIST. STATES THEY WILL FAX LIST.
--- NOTE | 2019-01-20 10:45 | NUR ---
PT RESTING MORE COMFORTABLY, EARLIER NORCO EFFECTIVE.
--- NOTE | 2019-01-20 10:58 | NUR ---
Dr. Bennett notified of wound care recommendations.
--- NOTE | 2019-01-20 11:22 | NUR ---
case management called Jamel Chang, [facility], spoke to Susan, gave patient's information, she will forward this information to a pillowcase cleaner at [facility], will await a return call
[2019-01-20 12:00] VITALS: BP 116/76
--- NOTE | 2019-01-20 15:18 | NUR ---
DR TRAYLOR NOTIFIED OF NEW CONSULT.
--- NOTE | 2019-01-20 15:54 | NUR ---
WOUND CARE PERFORMED PER ORDER.
[2019-01-20 16:00] VITALS: BP 107/68
--- NOTE | 2019-01-20 17:20 | NUR ---
MEDICATED WITH NORCO AT THIS TIME FOR COMPLAINTS OF BACK PAIN. DR LOFTON IN TO SEE PT AT THIS TIME, PT REQUESTING SOMETHING TO HELP SLEEP.
[2019-01-20 20:00] VITALS: BP 107/59
--- NOTE | 2019-01-20 21:18 | NUR ---
PATIENT MEDICATED WITH RESTORIL FOR COMPLAINTS OF INSOMNIA AND NORCO FOR COMPLAINTS OF BACK PAIN. WILL MONITOR FOR EFFECTIVENESS. CALL LIGHT IN REACH.
[2019-01-21] VITALS: BP 91/60
--- NOTE | 2019-01-21 01:16 | NUR ---
PATIENT IV INFILTRATED IN RIGHT HAND. HEP LOCK REMOVED. NEW 22G INSERTED INTO LEFT HAND ON FIRST ATTEMPT WITHOUT DIFFICULTY. CLEANSED WITH ALCOHOL AND HEP LOCKED WITH NS. PATIENT TOLERATED WELL. WILL CONTINUE TO MONITOR.
[2019-01-21 06:49] LABS: BASO # 0.1 10*3/uL (0.0-0.1); BASO % 0.5 % (0.0-1.0); EOS # 0.1 10*3/uL (0.0-0.4); EOS % 0.6 % (1.0-4.0); LYMPH # 2.1 10*3/uL (1.3-4.4); LYMPH % 21.3 % (27.0-41.0); MEAN CELL VOLUME 88.8 fl (80.0-94.0); MEAN CORPUSCULAR HGB 25.4 pg (27.0-31.0); MEAN CORPUSCULAR HGB CONC 28.6 g/dl (33.0-37.0); MEAN PLATELET VOLUME 11.6 fl (9.6-12.3); MONO # 0.7 10*3/uL (0.1-1.0); MONO % 7.1 % (3.0-9.0); NEUT % 69.6 % (47.0-73.0); PLATELET COUNT AUTOMATED 148 10*3/uL (130-400); RED BLOOD COUNT 4.48 10*6/uL (4.50-5.90); RED CELL DISTRI WIDTH 16.2 % (0-14.5); WHITE BLOOD COUNT 10.1 10*3/uL (4.8-10.8)
[2019-01-21 06:51] LABS: HEMATOCRIT 39.8 % (42.0-52.0); HEMOGLOBIN 11.4 g/dl (14.0-18.0)
[2019-01-21 06:59] LABS: BUN 21 mg/dl (7-24); CHLORIDE 102 mmol/L (98-107); CREATININE 1.12 mg/dL (0.70-1.30); POTASSIUM 3.2 mmol/L (3.5-5.1); SODIUM 142 mmol/L (136-145)
[2019-01-21 08:00] VITALS: BP 95/48
--- NOTE | 2019-01-21 09:35 | NUR ---
MEDICATED WITH NORCO PER PRN ORDER FOR COMPLAINTS OF CHRONIC BACK PAIN. WILL MONITOR FOR EFFECTIVENESS.
--- NOTE | 2019-01-21 10:14 | NUR ---
Current diet order and fluid restriction are appropriate for patient's needs. Continue providing Glucerna TID for wound healing and to improve current 2.9 albumin. No other nutrition intervention needed at this time. Will monitor. Aline Corral [facility] Dieteic Student
--- NOTE | 2019-01-21 11:00 | NUR ---
PT RESTING MORE COMFORTABLY, EARLIER NORCO EFFECTIVE.
[2019-01-21 12:00] VITALS: BP 99/57
[2019-01-21] MEDS ORDERED: DOXYCYCLINE100 MG PO (13:52)
--- NOTE | 2019-01-21 14:21 | NUR ---
NORCO GIVEN FOR COMPLAINTS OF CHRONIC BACK PAIN. WILL MONITOR FOR EFFECTIVENESS.
--- NOTE | 2019-01-21 14:21 | NUR ---
D/C PHOTOS TAKEN AT THIS TIME.
--- NOTE | 2019-01-21 15:30 | NUR ---
Discharge instructions reviewed with patient/family. Patient receptive and verbalizes understanding. Follow-up care arranged. Written instructions given to patient/family. IV site removed. CHINO MUNOZ
== END 2019-01-21 15:30 | disposition home or self-care (01) | DRG 602 ==
LOC: ED 17:04 → 4E 20:58 → EDHOLD 20:58 → 4E 21:19
PROVIDERS: Family Medicine; Physician Assistant; Student in an Organized Health Care Education/Training Program; ADMIT Internal Medicine
DX: L03.119 Cellulitis of unspecified part of limb (principal); I50.33 Acute on chronic diastolic (congestive) heart failure; E87.3 Alkalosis; E44.0 Moderate protein-calorie malnutrition; Z68.43 Body mass index [BMI] 50.0-59.9, adult; J96.12 Chronic respiratory failure with hypercapnia; J96.11 Chronic respiratory failure with hypoxia; I11.0 Hypertensive heart disease with heart failure; G51.0 Bell's palsy; J44.9 Chronic obstructive pulmonary disease, unspecified; E78.00 Pure hypercholesterolemia, unspecified; F17.210 Nicotine dependence, cigarettes, uncomplicated; E66.01 Morbid (severe) obesity due to excess calories; I48.0 Paroxysmal atrial fibrillation; I87.2 Venous insufficiency (chronic) (peripheral); D64.9 Anemia, unspecified; E53.8 Deficiency of other specified B group vitamins; E11.65 Type 2 diabetes mellitus with hyperglycemia; E83.41 Hypermagnesemia; E11.42 Type 2 diabetes mellitus with diabetic polyneuropathy; D72.829 Elevated white blood cell count, unspecified; Z79.4 Long term (current) use of insulin; Z79.82 Long term (current) use of aspirin; Z95.2 Presence of prosthetic heart valve; Z90.49 Acquired absence of other specified parts of digestive tract; Z83.3 Family history of diabetes mellitus; Z99.81 Dependence on supplemental oxygen; Z82.49 Family history of ischemic heart disease and other diseases of the circulatory system; Z80.41 Family history of malignant neoplasm of ovary; Z79.84 Long term (current) use of oral hypoglycemic drugs; Z80.0 Family history of malignant neoplasm of digestive organs; Z80.8 Family history of malignant neoplasm of other organs or systems

== ENCOUNTER 2019-01-27 14:13 | Inpatient (IN) | payer OTHER ==
[2019-01-27] VITALS: BP 102/48
[~2019-01-27] VITALS: Ht 180.3 cm; Wt 198.3 kg
--- NOTE | ~2019-01-27 | PR ---
[place], [place] PROGRESS NOTE NAME: RUTHIE MONTELONGO SR [facility] #: [id number] UNIT #: [id number] ROOM: 529 DOCTOR: ELEANOR GARZA MD,JANA BIRTHDATE: [birth year] DOS: 01/31/2019 SUBJECTIVE: The patient was noted comfortable at this time, resting in the bed without any acute distress. The patient has not been noted any symptoms of fever or chills. Shortness of breath is improving gradually and progressively. This morning sitting on the side of bed, using oxygen supplement nasal cannula, used the BiPAP last night. OBJECTIVE: VITAL SIGNS: Normal temperature, respiratory rate 20, heart rate 105, blood pressure 109/76. Pulse oxygen saturation recorded on 6 liters nasal cannula 100% saturation. The BiPAP was 98% to 100% saturation. HEENT: Head was atraumatic. Eyes nonicterus. NECK: Supple. CARDIOVASCULAR: S1, S2 audible. LUNGS: The patient with improvement in air entry of the lung. Occasional wheezing, no crackles. ABDOMEN: Soft and nontender. Bowel sounds present. EXTREMITIES: No acute change. IMPRESSION: 1. The patient with resolving acute exacerbation of chronic obstructive pulmonary disease, acute on chronic hypercapnia, hypoxic respiratory failure. 2. Morbid obesity. 3. Sleep apnea disorder. PLAN OF TREATMENT: The hospital BiPAP will be discontinued. Continuation of current other therapy, plan of management. Discharge planning could be started by primary care physician from the Pulmonary standpoint. JANA WEBSTER MD CM:PNMARK [id number] JANA GARZA MD 02/04/19 1403 interface
--- NOTE | ~2019-01-27 | PR ---
[place], [place] PROGRESS NOTE NAME: RUTHIE MONTELONGO SR [facility] #: [id number] UNIT #: [id number] ROOM: 529 DOCTOR: ELEANOR GARZA MD,JANA BIRTHDATE: [birth year] DOS: 02/03/2019 PULMONARY PROGRESS NOTE SUBJECTIVE: He has been noted comfortable sitting on side of bed. Shortness of breath continues, although no wheezing reported. Denies any coughing or chest pain. OBJECTIVE: VITAL SIGNS: Normal temperature this morning, respiratory rate 20, heart rate 118, blood pressure 112/74. Pulse oxygen saturation on 6 liters is 100% saturation. HEENT: Examination shows head was atraumatic. Eyes nonicterus. NECK: Supple. CARDIOVASCULAR: S1, S2 audible. LUNGS: Clear of any wheezing. ABDOMEN: Soft and obese. EXTREMITIES: Chronic changes. IMPRESSION: 1. Progressive and gradual resolution of the acute on chronic hypercapnic and hypoxic respiratory failure. 2. History of morbid obesity. 3. Acute exacerbation of chronic obstructive pulmonary disease. 4. Chronic lymphedema of the lower extremities. PLAN OF THERAPY: Continuation of current plan of management at this time as in progress. Usual care, other therapy, plan of management and treatment. Usual therapies. JANA WEBSTER MD CM:PNTRANS [phone] JANA GARZA MD 02/03/191937 interface
--- NOTE | ~2019-01-27 | PR ---
[place], [place] PROGRESS NOTE NAME: RUTHIE MONTELONGO SR UNIT #: [id number] ROOM: 529 DOCTOR: JANA ALBERTO MD BIRTHDATE: [birth year] DOS: 01/30/2019 PULMONARY PROGRESS NOTE SUBJECTIVE: The patient noted comfortable at this time, resting, sitting on side of bed, still complaining of shortness of breath with nonproductive cough, wheezing at times. There were no symptoms of chest pain. Denies symptoms of hemoptysis. He has been using the BiPAP intermittently during the day, continue at nighttime. This morning, using oxygen supplementation with high flow nasal cannula. OBJECTIVE: VITAL SIGNS: For the patient which are recorded shows normal temperature, respiratory rate 20, heart rate 83, blood pressure 118/64. Pulse oxygen saturation recorded as 98% saturated bypass 6 liters high flow nasal cannula 96% saturation. HEENT: Chronic severe obesity. Head was atraumatic. Eyes nonicterus. NECK: Supple. CARDIOVASCULAR: S1, S2 audible. LUNGS: The patient with mild to moderate expiratory wheezing, no crackles. ABDOMEN: Soft, nontender, bowel sounds present. EXTREMITIES: Chronic changes. IMPRESSION: Resolving acute exacerbation of chronic obstructive pulmonary disease gradually and slowly with improving acute on chronic hypercapnia hypoxic respiratory failure. Culture of the sputum noted normal krishan appear to be upper respiratory tract krishan. PLAN OF MANAGEMENT: Continuation of the bronchodilators, oxygen supplementation, BiPAP with oxygen, corticosteroids, antibiotic and other plan of management as in progress. Metabolic alkalosis was also noted chronic with CO2 today noted 35, would not require any intervention. Continue the Diamox 500 mg daily. [place], [place] PROGRESS NOTE NAME: RUTHIE MONTELONGO SR UNIT #: [id number] ROOM: 529 DOCTOR: JANA ALBERTO MD BIRTHDATE: [birth year] JANA WEBSTER MD CM:PNTRANS [id number] JANA GARZA MD 01/30/19 1755 interface
--- NOTE | ~2019-01-27 | PR ---
[place], [place] PROGRESS NOTE NAME: [facility]UTH[facility]GO SR [id number] UNIT #: [id number] ROOM: 529 DOCTOR: ELEANOR GARZA MD,JANA BIRTHDATE: [birth year] DOS: 02/01/2019 PULMONARY PROGRESS NOTE SUBJECTIVE: He has been noted comfortable at this time without any acute distress. He denies symptoms of fever, chills, coughing or any sputum expectoration. Currently using his noninvasive ventilator and comfortably resting on the bed. OBJECTIVE: VITAL SIGNS: For the patient this morning is normal temperature, respiratory rate 18, heart rate 110, blood pressure 115/77. The pulse oxygen saturation on 6 liters canula previously 100% with his BiPAP as 98% saturation. HEENT: Chronic morbid obese. Head was atraumatic. Eyes nonicterus. NECK: Supple. CARDIOVASCULAR: S1, S2 audible. LUNGS: The lung was noted clear of any wheezing today. ABDOMEN: Soft with morbid obese. EXTREMITIES: Chronic changes with lymphedema. Superimposed mild edema was considered. IMPRESSION: 1. Stable respiratory status with resolving acute exacerbation of chronic obstructive pulmonary disease and gradually and progressively. 2. The patient with morbid obesity. 3. The patient with obstructive sleep apnea disorder. PLAN OF TREATMENT: Decrease the Solu-Medrol dose to 30 mg b.i.d. Other therapy, plan of management, additional treatment changes will be made for this patient based on progression of his illness. JANA WEBSTER MD CM:PNTRANS [phone] JANA GARZA MD 02/02/19 0501 interface
--- NOTE | ~2019-01-27 | PR ---
[place], [place] PROGRESS NOTE NAME: RUTHIE MONTELONGO SR [facility] #: [id number] UNIT #: [id number] ROOM: 529 DOCTOR: ELEANOR GARZA MD,JANA BIRTHDATE: [birth year] DOS: 02/02/2019 SUBJECTIVE: The patient was noted comfortable at this time, resting, sitting on the bed this morning. Denies any symptoms of coughing, shortness of breath. The patient has been improving. There were no symptoms of chest pain. OBJECTIVE: VITAL SIGNS: For the patient recorded as normal temperature, respiratory rate of 21, heart rate 118, blood pressure 113/75. Pulse oxygen saturation on 6 liters nasal cannula 98%-99% saturation maintained. HEENT: Chronic morbid obese. NECK: Supple. Head was atraumatic. CARDIOVASCULAR: S1, S2 is audible. LUNGS: Noted without any wheezing or crackles at this time. Breaths are noted inrb-ly-[id number] decreased bilaterally. ABDOMEN: Soft, obese, nontender. Bowel sounds present. EXTREMITIES: Chronic obesity with chronic lymphedema changes. IMPRESSION: Stable respiratory status, resolving acute exacerbation of chronic obstructive pulmonary disease, improving acute on chronic hypercapnic hypoxic respiratory failure. PLAN OF MANAGEMENT: No changes in plan of care at this time. Continue the patient's current therapy as in progress for usual medical management. Discharge planning per primary care attending. JANA WEBSTER MD CM:PNTRANS [phone] JANA GARZA MD 02/04/19 1402 interface
--- NOTE | ~2019-01-27 | PR ---
[place], [place] PROGRESS NOTE NAME: RUTHIE MONTELONGO SR [facility] #: [id number] UNIT #: [id number] ROOM: 529 DOCTOR: ELEANOR GARZA MD,JANA BIRTHDATE: [birth year] DOS: 01/29/2019 PULMONARY PROGRESS NOTE SUBJECTIVE: The patient was noted without any acute distress at this time. There were no symptoms of chest pain, fever or chills. Denies symptoms of abdominal pain. The patient was noted with coughing at times. There was no sputum expectoration. The patient denies symptoms of headache or diplopia. The patient has been started on BiPAP yesterday, well tolerated without any difficulty this morning using oxygen supplement via nasal cannula. The remaining systems were reviewed. They were noted negative. OBJECTIVE: VITAL SIGNS: For the patient, which has been recorded showed normal temperature, respiratory rate 18, heart rate 100, blood pressure 120/78. Pulse oxygen saturation on 50% is 99% saturation. On 6 liters-7 liters nasal cannula was 97% saturation. HEENT: Chronic morbid obesity. Head was atraumatic. Eyes nonicterus. NECK: Supple. CARDIOVASCULAR SYSTEM: S1, S2 is audible. LUNGS: Noted moderate expiratory wheezing. There were no crackles. ABDOMEN: Soft, nontender. Bowel sounds present. EXTREMITIES: Chronic changes. CENTRAL NERVOUS SYSTEM: No focal deficit. MUSCULOSKELETAL: Without any acute deformities. SKIN: Chronic changes in lower extremity without any open areas, rashes or lesions. LABORATORY DATA: Vancomycin trough level 24 yesterday. The arterial blood gas that was done yesterday; pH of 7.27, pCO2 of 61, pO2 87 on 6 liters nasal cannula. The BMP this morning; glucose 205, BUN 19, creatinine was normal. IMPRESSION: 1. The patient with acute and chronic hypercapnic and hypoxic respiratory failure with acute exacerbation of chronic obstructive pulmonary disease and acute superimposed congestive heart failure with diastolic dysfunction. 2. Morbid obesity. 3. Obstructive sleep apnea disorder. 4. Past history of nicotine use. 5. Question of mass lesion in the right kidney was also stated versus a complex cyst. 6. History of allergic rhinitis. PLAN OF MANAGEMENT: Continuation of the bronchodilators and oxygen supplementation. Following the respiratory status improvement for this patient. Change the DuoNeb to albuterol sulfate. Other therapy, plan of management, additional treatment changes will be ordered based on the progression of [place], [place] PROGRESS NOTE NAME: RUTHIE MONTELONGO SR UNIT #: [id number] ROOM: 529 DOCTOR: ELEANOR GARZA MD,JANA BIRTHDATE: [birth year] illness. The BiPAP will be continued in the settings of 25/07 as well. Follow the Cardiology recommendation for the amiodarone use and the diuretics and others. The patient was getting broad-spectrum intravenous antibiotics. Antibiotic spectrum should be decreased for this patient based on the current culture results. Usual care. JANA WEBSTER MD CM:GM [phone] JANA GARZA MD 01/29/19 4945 interface
--- NOTE | ~2019-01-27 | CON ---
[place], [place] REPORT OF CONSULTATION NAME: RUTHIE MONTELONGO SR [facility] #: [id number] UNIT #: [id number] ROOM: 529 DOCTOR: JANA ALBERTO MD BIRTHDATE: [birth year] DOS: 01/28/2019 PULMONARY CONSULTATION, EVALUATION AND MANAGEMENT CONSULTATION REQUESTED BY: Hospitalist services. REASON FOR CONSULTATION: For the assessment of acute respiratory symptoms, exacerbation of COPD and others. HISTORY OF PRESENT ILLNESS: This is a 53-year-old white male who has been admitted under the care of Hospitalist Service on the date of 01/27/2019. Reported symptoms of having increased shortness of breath, which has been ongoing for the past few days. Symptoms are noted gradually worse. Also noted with a recent pain, which was described in the flank and there was a reduction of the dark brown urine as well. Denies symptoms of chest pain. He denies symptoms of sputum expectoration with mild cough noted with chronic edema of the lower extremity with questionable increase in the swelling of the lower extremities. Denies symptoms of hemoptysis. The patient has been recently admitted to the hospital on 01/21/2018, and then subsequently discharged home as well. The patient was also complaining of some sinus congestion symptoms as well. REVIEW OF SYSTEMS: CONSTITUTIONAL: Fatigue and tiredness reported without any symptoms of fever or chills. EYES: Denies burning, redness, or tenderness. EARS, NOSE, AND THROAT SYMPTOMS: Denies sore throat, hoarseness, otalgia, postnasal drainage or epistaxis. CARDIOVASCULAR: Denies anginal pain. Noted chronic edema of the lower extremities lymphedema history as well. GENITOURINARY: The patient was reported symptoms of hematuria. Denies any symptoms of suprapubic pain or flank pain was reported. MUSCULOSKELETAL: No acute joint pain, redness, or tenderness. SKIN: Chronic changes. Venous stasis pigmentation. No open areas, rashes or lesions reported. CENTRAL NERVOUS SYSTEM: Denies dizziness, headache, diplopia, or syncopal episodes. Remaining systems were reviewed, they were noted all negative PAST MEDICAL HISTORY: Noted with: 1. History of end-stage COPD. 2. Chronic hypercapnic respiratory failure. 3. Chronic hypoxic respiratory failure. 4. Obstructive sleep apnea disorder. 5. Congestive heart failure, diastolic dysfunction. 6. Nicotine dependence. 7. Uncomplicated moderate persistent bronchial asthma. 8. Atrial fibrillation, which is permanent. 9. Hyperlipidemia. [place], [place] REPORT OF CONSULTATION NAME: [facility]GO SR [id number] UNIT #: [id number] ROOM: 529 DOCTOR: JANA ALBERTO MD BIRTHDATE: [birth year] 10. Intervertebral disk disease. 11. Severe morbid obesity. PAST SURGICAL HISTORY: Noted as tonsillectomy. Coronary artery bypass grafting. SOCIAL HISTORY: The patient is . 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 He has 3 children. Smoking started for the age of [age] years old, 4 pack of cigarettes per day, currently smoking a pack or less of cigarettes a day. FAMILY HISTORY: Father with complication of throat cancer. Mother from unknown cancer. CURRENT MEDICATIONS: Administered were noted as amitriptyline, gabapentin, loratadine, aspirin and amiodarone 400 mg p.o. b.i.d., Diamox 500 mg p.o. daily, pravastatin, Eliquis 5 mg b.i.d., Mucinex 600 mg b.i.d., Solu-Medrol 60 mg b.i.d., DuoNeb q. 4 hours, Levaquin, vancomycin and IV Zosyn. DRUG ALLERGIES: Noted no known drug allergies. PHYSICAL EXAMINATION: GENERAL: This is a 53-year-old male who has been currently lying in the bed, using his noninvasive ventilator. Trilogy with full face mask. VITAL SIGNS: Height was recorded as 6 feet, weight 449 pounds, BMI 62. Vital signs is a normal temperature, respiratory rate of 27-18, heart rate of 71-104, blood pressure 146/89 to 110/62. The pulse oxygen saturation currently recorded as 99% saturation with the noninvasive ventilator. On 7-liter oxygen supplementation previously noted 98% saturation. HEENT: Head was atraumatic. Eyes nonicterus. NECK: Supple. Severe decreased posterior pharyngeal space, high tongue base and crowding of soft tissue structures. CARDIOVASCULAR: S1, S2 is audible. LUNGS: Noted general reduction in the breath sounds, scattered wheezing with occasional crackles. ABDOMEN: Soft, nontender. Bowel sounds present. EXTREMITIES: Noted with chronic venous stasis pigmentation, lymphedema. Unable to assess if there is superimposed acute edema. VISIBLE SKIN: Noted chronic changes in lower extremities. CENTRAL NERVOUS SYSTEM: Intact. MUSCULOSKELETAL: Without any acute deformities. LABORATORY DATA: Lactic acid yesterday noted at 1.1. CBC that was done on 01/27/2019, WBC count 16.9, hemoglobin and hematocrit normal, platelet count 174,000. The CMP that was done on 01/27/2019, BUN normal, creatinine normal, sodium 135. LFTs normal. PT/INR yesterday normal, PTT normal. BMP that was done this morning as normal BUN and creatinine, glucose 187. CBC this morning, WBC count normal, hemoglobin 11.3, hematocrit of 38.9, platelet count 130,000. Influenza A and B, nasal washing antigen negative. Chest x-ray, which was taken yesterday in the Emergency Room was reviewed, extremely difficult assessment because of large body habitus. Changes of coronary artery bypass grafting were [place], [place] REPORT OF CONSULTATION NAME: RUTHIE MONTELONGO SR UNIT #: [id number] ROOM: 529 DOCTOR: ELEANOR GARZA MD,JANA BIRTHDATE: [birth year] visible with increased interstitial markings as well. Basilar area of atelectasis or infiltration. The patient had a CT scan of the abdomen and pelvis, which was done on admission yesterday was reviewed. Again, for the radiology data assessment. CT scan of the abdomen and pelvis, which were done reported by the radiologist as findings of 8 cm hypodense mass in the posterior right kidney in the location of past cyst. Cannot rule out ____ mass versus hemorrhage, proteinaceous cystic mass. MRI was suggested. Lower portion of the CT thorax was also done and images reviewed, shows very small right pleural fluid. Area of atelectasis in the right lower lobe would be considered, rule out any pneumonia. IMPRESSION: 1. The patient will be currently admitted to the hospital with chronic hypercapnic and hypoxic respiratory failure with suggested acute congestive heart failure and area of compression atelectasis, less likely to be considered as acute pneumonia. 2. Past history of atrial fibrillation. 3. Very high dose of amiodarone at this time as 400 mg b.i.d. was also used. Does not have signs of acute atrial fibrillation with rapid ventricular response. 4. Small pleural fluid related to congestive heart failure, diastolic dysfunction as well. 5. Severe morbid obesity with obstructive sleep apnea disorder. 6. Acute exacerbation of chronic obstructive pulmonary disease as well. 7. Severe morbid obesity. 8. History of allergic rhinitis. PLAN OF TREATMENT: Antibiotic needs to be discontinued from the pulmonary standpoint. Does not have any evidence of pneumonia at the present time for any other reason, needs antibiotic that could be continued for that reason accordingly. Solu-Medrol dose will be continued 60 mg b.i.d. today and will be changed to the lower dose tomorrow depending on further improvement in symptoms. The patient was also getting the Diamox for chronic hypercapnia. Obtain the arterial blood gas to exactly assess ventilatory status. Bronchodilator and other plan of management with additional treatment changes will be recommended based on progression of the illness. The patient is already using the noninvasive ventilator for respiratory failure support that will be continued. The patient would be recommended about Cardiology consultation to consider the reduction of the dose of the amiodarone to prevent any acute toxicity to the lungs. At this time, certainly, does not show any manifestations of lung toxicity. Other therapy, plan of management and additional treatment changes will be done based on progression of the illness and anticoagulation for the current atrial fibrillation will be continued with Eliquis as well. This will also give the DVT prophylaxis. Other therapy, plan of management, usual care, plan of treatment, nicotine placement patches will be given in case of nicotine withdrawal. Usual care, plan of management, other therapy, plan of treatment as well with additional treatment changes will be ordered based on the progression of the illness. [place], [place] REPORT OF CONSULTATION NAME: REGINALD R[facility]IE LOPEZ [facility]: [id number] UNIT #: [id number] ROOM: 529 DOCTOR: JANA ALBERTO MD BIRTHDATE: [birth year] Thanks for allowing me to participate in the care of this patient. JANA WEBSTER MD CM:CONSTR:REPORT OF CONSULTATION 1416 01/29/19 0339 interface
--- NOTE | ~2019-01-27 | PR ---
[place], [place] PROGRESS NOTE NAME: RUTHIE MONTELONGO SR [facility] #: [id number] UNIT #: [id number] ROOM: 529 DOCTOR: NICOLASA CHENG DPM BIRTHDATE: [birth year] DOS: 02/01/2019 SUBJECTIVE: The patient for followup of edema, venous insufficiency, bilateral lower extremity with ulcerations to the left leg. OBJECTIVE FINDINGS: The patient's dressing was loose and hanging off his leg. There are superficial venous ulcerations to the posterior aspect of the left leg. No signs of fluctuance. No foul odor. Minimal serous drainage noted. Venous insufficiency, venous stasis both lower extremities noted. ASSESSMENT: Venous insufficiency, venous stasis, bilateral lower extremity venous ulcer posterior aspect of left leg x 2. PLAN: Evaluation and management. Order Betadine-soaked Adaptic with gauze dressings to the wounds posterior left leg. Apply Tubigrip to both lower extremities and we will follow with the patient accordingly. NICOLASA CHENG DPM CM:PNMARK [id number] NICOLASA CHENG DPM 02/01/19 2218 interface
[~2019-01-27 14:13] MED LIST changes: +DOXYCYCLINE100 MG PO
[2019-01-27 14:14] VITALS: BP 125/64
[2019-01-27 16:00] VITALS: BP 102/48
[2019-01-27 16:17] LABS: BASO # 0.1 10*3/uL (0.0-0.1); BASO % 0.4 % (0.0-1.0); EOS # 0.1 10*3/uL (0.0-0.4); EOS % 0.7 % (1.0-4.0); HEMATOCRIT 42.2 % (42.0-52.0); HEMOGLOBIN 12.4 g/dl (14.0-18.0); LYMPH # 1.9 10*3/uL (1.3-4.4); LYMPH % 11.4 % (27.0-41.0); MEAN CELL VOLUME 89.4 fl (80.0-94.0); MEAN CORPUSCULAR HGB 26.3 pg (27.0-31.0); MEAN CORPUSCULAR HGB CONC 29.4 g/dl (33.0-37.0); MONO # 1.4 10*3/uL (0.1-1.0); MONO % 8.3 % (3.0-9.0); NEUT # 13.1 10*3/uL (2.3-7.9); NEUT % 77.7 % (47.0-73.0); PLATELET COUNT AUTOMATED 174 10*3/uL (130-400); RED BLOOD COUNT 4.72 10*6/uL (4.50-5.90); RED CELL DISTRI WIDTH 16.3 % (0-14.5); WHITE BLOOD COUNT 16.9 10*3/uL (4.8-10.8)
[2019-01-27 16:32] LABS: ALBUMIN 3.2 gm/dl (3.1-4.5); ALKALINE PHOSPHATASE 115 U/L (45-117); BUN 15 mg/dl (7-24); CHLORIDE 102 mmol/L (98-107); CREATININE 1.11 mg/dL (0.70-1.30); LIPASE 50 U/L (73-393); POTASSIUM 3.6 mmol/L (3.5-5.1); SGOT/AST 11 IU/L (3-35); SGPT/ALT 21 U/L (12-78); SODIUM 137 mmol/L (136-145); TOTAL PROTEIN 7.2 gm/dL (6.4-8.2)
[2019-01-27 16:33] LABS: ACT PARTIAL THROMBO TIME 28.8 SECONDS (20.8-31.5)
[2019-01-27 16:48] LABS: BILIRUBIN NEGATIVE (NEGATIVE); BLOOD 3+ (NEGATIVE); CLARITY SL CLOUDY (CLEAR); COLOR YELLOW (YELLOW); GLUCOSE NEGATIVE (NEGATIVE); KETONE NEGATIVE (NEGATIVE); LEUKO ESTERASE TRACE (NEGATIVE); NITRITE NEGATIVE (NEGATIVE); PH 5.5 (5.0-9.0); UROBILINOGEN 0.2 E.U./dl (0.2-1.0)
[2019-01-27 16:58] LABS: BACTERIA 2+; RBC TNTC rbc/hpf (0-2)
[2019-01-27 18:04] VITALS: BP 122/62
[2019-01-27 19:21] VITALS: BP 111/62
[2019-01-27 22:00] VITALS: BP 117/77; BP 146/89
[2019-01-28 06:54] LABS: BUN 17 mg/dl (7-24); CHLORIDE 103 mmol/L (98-107); CREATININE 1.06 mg/dL (0.70-1.30); SODIUM 138 mmol/L (136-145)
[2019-01-28 07:06] LABS: HEMATOCRIT 38.9 % (42.0-52.0); HEMOGLOBIN 11.3 g/dl (14.0-18.0); MEAN CELL VOLUME 89.4 fl (80.0-94.0); MEAN PLATELET VOLUME 11.1 fl (9.6-12.3); PLATELET COUNT AUTOMATED 130 10*3/uL (130-400); RED BLOOD COUNT 4.35 10*6/uL (4.50-5.90); RED CELL DISTRI WIDTH 15.9 % (0-14.5); WHITE BLOOD COUNT 9.9 10*3/uL (4.8-10.8)
[2019-01-28 07:28] LABS: TOTAL CELLS COUNTED 100 #CELLS
[2019-01-28 07:29] LABS: PLATELET SUFFICIENCY NORMAL (NORMAL)
[2019-01-28 08:00] VITALS: BP 114/59
[2019-01-28 11:20] VITALS: BP 110/62
[2019-01-28 12:00] VITALS: BP 118/61
[2019-01-28 14:52] LABS: ABG BASE EXCESS 0.1 mmol/L (-2.0-2.0); ABG HCO3 27.7 mmol/l (22-26); ABG O2 SATURATION 97.9 % (95-97); ARTERIAL BLOOD GAS PCO2 61.6 mmHg (35-45); ARTERIAL BLOOD GAS PH 7.272 (7.35-7.45); ARTERIAL BLOOD GAS PO2 87.2 mmHg (80-90)
[2019-01-28 16:00] VITALS: BP 108/59
[2019-01-28 20:00] VITALS: BP 129/63
[2019-01-29] VITALS: BP 115/63
[2019-01-29 06:27] LABS: BUN 19 mg/dl (7-24); CHLORIDE 102 mmol/L (98-107); CREATININE 1.12 mg/dL (0.70-1.30); POTASSIUM 4.1 mmol/L (3.5-5.1); SODIUM 137 mmol/L (136-145)
[2019-01-29 07:10] VITALS: BP 132/77
[2019-01-29 12:00] VITALS: BP 120/78
[2019-01-29 15:57] VITALS: BP 118/83
[2019-01-29 20:00] VITALS: BP 129/79
[2019-01-30] VITALS: BP 105/47
[2019-01-30 07:26] LABS: BUN 23 mg/dl (7-24); CHLORIDE 100 mmol/L (98-107); POTASSIUM 4.5 mmol/L (3.5-5.1); SODIUM 137 mmol/L (136-145)
[2019-01-30 07:27] LABS: CREATININE 1.14 mg/dL (0.70-1.30)
[2019-01-30 08:00] VITALS: BP 118/64
[2019-01-30 12:00] VITALS: BP 128/90
[2019-01-30 16:00] VITALS: BP 112/66
[2019-01-30 20:00] VITALS: BP 131/80
[2019-01-31] VITALS: BP 100/49
[2019-01-31 06:47] LABS: BUN 28 mg/dl (7-24); CHLORIDE 104 mmol/L (98-107); CREATININE 1.06 mg/dL (0.70-1.30); POTASSIUM 4.1 mmol/L (3.5-5.1); SODIUM 139 mmol/L (136-145)
[2019-01-31 08:00] VITALS: BP 109/76
[2019-01-31 12:00] VITALS: BP 118/68
[2019-01-31 16:00] VITALS: BP 118/74
[2019-01-31 20:00] VITALS: BP 122/69
[2019-02-01] VITALS: BP 123/73
[2019-02-01 07:21] LABS: BUN 30 mg/dl (7-24); CHLORIDE 103 mmol/L (98-107); CREATININE 1.14 mg/dL (0.70-1.30); POTASSIUM 3.8 mmol/L (3.5-5.1); SODIUM 141 mmol/L (136-145)
[2019-02-01 08:00] VITALS: BP 115/77
[2019-02-01 12:00] VITALS: BP 116/77
[2019-02-01 16:00] VITALS: BP 113/73
[2019-02-01 20:00] VITALS: BP 117/64
[2019-02-02] VITALS: BP 91/55
[2019-02-02 07:02] LABS: BUN 27 mg/dl (7-24); CHLORIDE 101 mmol/L (98-107); CREATININE 1.37 mg/dL (0.70-1.30); POTASSIUM 3.7 mmol/L (3.5-5.1); SODIUM 141 mmol/L (136-145)
[2019-02-02 08:00] VITALS: BP 113/75
[2019-02-02 12:00] VITALS: BP 135/54
[2019-02-02 16:00] VITALS: BP 122/83
[2019-02-02 20:00] VITALS: BP 114/69
[2019-02-02 23:26] VITALS: BP 106/50
[2019-02-03] VITALS: BP 104/56
[2019-02-03 03:56] VITALS: BP 102/68
[2019-02-03 06:38] LABS: HEMATOCRIT 43.6 % (42.0-52.0); HEMOGLOBIN 12.3 g/dl (14.0-18.0); MEAN CELL VOLUME 90.5 fl (80.0-94.0); MEAN CORPUSCULAR HGB 25.5 pg (27.0-31.0); MEAN CORPUSCULAR HGB CONC 28.2 g/dl (33.0-37.0); MEAN PLATELET VOLUME 11.7 fl (9.6-12.3); PLATELET COUNT AUTOMATED 155 10*3/uL (130-400); RED BLOOD COUNT 4.82 10*6/uL (4.50-5.90); RED CELL DISTRI WIDTH 16.4 % (0-14.5); WHITE BLOOD COUNT 12.2 10*3/uL (4.8-10.8)
[2019-02-03 06:46] LABS: BUN 26 mg/dl (7-24); CHLORIDE 101 mmol/L (98-107); CREATININE 1.31 mg/dL (0.70-1.30); POTASSIUM 4.5 mmol/L (3.5-5.1); SODIUM 141 mmol/L (136-145)
[2019-02-03 07:41] LABS: OVALOCYTES FEW; PLATELET SUFFICIENCY NORMAL (NORMAL); TOTAL CELLS COUNTED 100 #CELLS
[2019-02-03 08:00] VITALS: BP 112/74
[2019-02-03] MEDS ORDERED: MUCINEX ER600 MG PO (09:59)
[2019-02-03] MEDS ORDERED: DOXYCYCLINE100 M3 PO (09:59)
[2019-02-03] MEDS ORDERED: PREDNISONE10 MG PO (09:59)
[2019-02-03 12:00] VITALS: BP 101/64
== END 2019-02-03 14:00 | disposition home or self-care (01) | DRG 871 ==
LOC: ED 14:13 → 5E 20:03 → EDHOLD 20:03 → 5E 20:37
PROVIDERS: Family Medicine; Internal Medicine; Internal Medicine Critical Care Medicine; Nurse Practitioner Family; Student in an Organized Health Care Education/Training Program; ADMIT Internal Medicine
DX: A41.9 Sepsis, unspecified organism (principal); I50.33 Acute on chronic diastolic (congestive) heart failure; J96.21 Acute and chronic respiratory failure with hypoxia; J96.22 Acute and chronic respiratory failure with hypercapnia; J15.6 Pneumonia due to other Gram-negative bacteria; L03.116 Cellulitis of left lower limb; N39.0 Urinary tract infection, site not specified; J44.1 Chronic obstructive pulmonary disease with (acute) exacerbation; E44.0 Moderate protein-calorie malnutrition; L97.929 Non-pressure chronic ulcer of unspecified part of left lower leg with unspecified severity; Z68.43 Body mass index [BMI] 50.0-59.9, adult; L89.892 Pressure ulcer of other site, stage 2; E78.5 Hyperlipidemia, unspecified; M19.90 Unspecified osteoarthritis, unspecified site; R65.20 Severe sepsis without septic shock; R31.0 Gross hematuria; N28.89 Other specified disorders of kidney and ureter; E11.40 Type 2 diabetes mellitus with diabetic neuropathy, unspecified; E11.65 Type 2 diabetes mellitus with hyperglycemia; D64.9 Anemia, unspecified; B35.1 Tinea unguium; I87.8 Other specified disorders of veins; I87.2 Venous insufficiency (chronic) (peripheral); I89.0 Lymphedema, not elsewhere classified; G51.0 Bell's palsy; G47.33 Obstructive sleep apnea (adult) (pediatric); E78.00 Pure hypercholesterolemia, unspecified; I11.0 Hypertensive heart disease with heart failure; F17.210 Nicotine dependence, cigarettes, uncomplicated; I48.0 Paroxysmal atrial fibrillation; E66.01 Morbid (severe) obesity due to excess calories; Z99.81 Dependence on supplemental oxygen; Z95.2 Presence of prosthetic heart valve; Z79.82 Long term (current) use of aspirin; Z90.49 Acquired absence of other specified parts of digestive tract; Z83.3 Family history of diabetes mellitus; Z82.49 Family history of ischemic heart disease and other diseases of the circulatory system; Z80.41 Family history of malignant neoplasm of ovary; Z80.2 Family history of malignant neoplasm of other respiratory and intrathoracic organs

== ENCOUNTER 2019-05-28 14:25 | Inpatient (IN) | payer MEDICARE, MEDICAID ==
[~2019-05-28] VITALS: Ht 182.8 cm; Wt 180.5 kg
[2019-05-28] VITALS (10 sets, daily range): BP systolic 92–140; BP diastolic 53–91
--- NOTE | ~2019-05-28 | CON ---
[place], [place] REPORT OF CONSULTATION NAME: [facility]UTH[facility]ELONGO SR [facility]: [id number] UNIT #: [id number] ROOM: [facility] DOCTOR: JANA ALBERTO MD BIRTHDATE: [birth year] DOS: 05/29/2019 PULMONARY CRITICAL CARE EVALUATION AND MANAGEMENT CONSULTATION REQUESTED BY: Hospitalist services. REASON FOR CONSULTATION: For the assessment of the respiratory failure. HISTORY OF PRESENT ILLNESS: This is a 54-year-old white male patient who has been admitted to the hospital, known to me from the past as well. He has been admitted to the hospital under care of the hospitalist service on 05/28/2019, brought by the ambulance. The patient is reporting symptoms of shortness of breath. History could not be obtained. All the history continued documentation. Reviewed the medical record done by the other physician's notes. The patient has been noted with severe shortness of breath, which has gradually progressive as per history for 3 days. Symptoms were noted worsening. The patient does have oxygen supplementation at home of 6 liter nasal cannula reported. No improvement in respiratory symptom. He was noted severely tachypnea as well and severe hypercapnia. The patient decreased pH, has been intubated successfully and started on mechanical ventilation because of progressive severe respiratory failure management. Post-intubation, the patient has been admitted to the Intensive Care Unit where he has been managed. Changes in the mechanical ventilation was done requiring high amount of oxygen supplementation on admission. He has been noted with moderate amount of very thick secretion, which has been noted purulent by the respiratory nursing staff in the last 16 hours of admission to the hospital. He has been currently sedated with intravenous Diprivan and the Versed, noted comfortable. REVIEW OF SYSTEMS: Could not be completed since the patient is intubated. Currently noted on the mechanical ventilator. PAST MEDICAL HISTORY: Known with history of: 1. End-stage chronic obstructive pulmonary disease. 2. Chronic hypercapnic respiratory failure. 3. Chronic hypoxic respiratory failure, use of oxygen supplementation 6 liters nasal cannula. 4. Obstructive sleep apnea disorder. 5. Congestive heart failure with preserved ejection fraction. 6. Nicotine dependence. 7. Uncomplicated moderate persistent bronchial asthma 8. Permanent atrial fibrillation. 9. Hyperlipidemia. 10. Morbid obesity. 11. Intervertebral disk disease. PAST SURGICAL HISTORY: 1. Tonsillectomy. 2. Coronary artery disease. SOCIAL HISTORY: The patient is . 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 He has 3 children. Smoking noted at age of [age] years old, 4 pack of cigarettes per day with intermittent tobacco use, unknown quantity at this time was reported. FAMILY HISTORY: The patient's father with complication of cancer of the throat. Mother of unknown cancer. CURRENT MEDICATIONS: Which has been administered for this hospitalization were noted as amiodarone, amitriptyline, Protonix, Eliquis, Solu-Medrol 60 mg b.i.d., Lasix 40 mg IV b.i.d., intravenous propofol, Versed 5 mg every 1 hour p.r.n. for agitation and sedation. Chlorhexidine rinse, IV Levaquin, and some other p.r.n. meds. DRUG ALLERGIES: No known drug allergies. PHYSICAL EXAMINATION: GENERAL: This is a 54-year-old male patient is currently intubated and sedated mechanical ventilator, height of 6 feet, weight of 147 pounds, BMI 60. VITAL SIGNS: Noted as normal temperature, respiratory rate ranged between 14-16, heart rate of 84-89, blood pressure 114/61, 121/66. Pulse oxygen saturation noted on 65% oxygen supplementation as 95% saturation. HEAD, EYES, EARS, NOSE, AND THROAT: Examination shows head was atraumatic. The patient is intubated. Orogastric tube in place. NECK: Supple and obese. CARDIOVASCULAR SYSTEM: S1, S2 is audible. LUNGS: Noted decreased breath sounds noted in the lungs bilaterally with scattered expiratory wheezing. ABDOMEN: Noted soft severely obese. Bowel sounds present. No tenderness reported previously. EXTREMITIES: The patient noted chronic changes patient with venous stasis pigmentation. Dryness of the skin. MUSCULOSKELETAL: Noted without any acute good visible deformity. CENTRAL NERVOUS SYSTEM: The patient appeared to be intact prior to intubation and mechanical ventilation. Currently, the patient is sedated. LABORATORY AND DIAGNOSTIC DATA: The patient's CBC on admission yesterday was 15.9, hemoglobin 11.4, platelet count were normal. The PT, PTT yesterday noted as normal range. CMP is 21, glucose 136, BUN and creatinine was normal. CO2 of 35. Troponin was normal. The CMP that was done this morning, glucose 153, BUN and creatinine were normal. BUN and creatinine was normal. Electrolytes were grossly normal. CBC this morning lab, WBC count 10.5, hemoglobin 10.7, platelet count was normal, 98% segmented neutrophils. Arterial blood gases reviewed, first arterial blood gas in the Emergency Room, pH of 7.05, pCO2 of 123, ____ 100% nonrebreather mask. Second arterial blood gas 80% oxygen mechanical ventilator, pH of 7.11, pCO2 of 11, pO2 of 130. Arterial blood gas when the evening yesterday pH of 7.25, pCO2 of 74, pO2 of 67.5 at that time with 60% oxygen. The arterial blood gas with 60% oxygen this morning, pH of 7.32, pCO2 of 64, pO2 of 59-60% oxygen. The endotracheal aspirate yesterday moderate white blood cells, many gram-positive cocci in pairs, normal krishan has been noted. Final culture results were pending. Chest x-ray that was completed on [place], [place] REPORT OF CONSULTATION NAME: RUTHIE MONTELONGO SR UNIT #: [id number] ROOM: [facility] DOCTOR: JALEESA ALBERTO MDM BIRTHDATE: [birth year] 05/29/2019 was reviewed and the medication also relates suspicion as Levaquin intravenously administered. Chest x-ray that was done yesterday noted endotracheal tube is in place. It shows evidence of infiltration, consolidation in the right lower lobe. The NG tube noted in the stomach. Remaining lungs appeared to be clear. IMPRESSION: 1. The patient has been currently noted with severe acute on chronic hypercapnic hypoxemic respiratory failure and acute large pneumonia involving the right lower lobe, possible consideration of acute aspiration would be considered very likely with decreased responsiveness. 2. Severe morbid obesity. 3. Suspected obstructive sleep apnea disorder, not diagnosed or treated. 4. Atrial fibrillation, was also known which is permanent atrial fibrillation. 5. Hyperglycemia secondary to corticosteroids. 6. Acute exacerbation of chronic obstructive pulmonary disease. 7. The patient with multiple other medical problems noted and dictated including congestive heart failure with preserved ejection fraction. PLAN OF THERAPY: Ventilator bundle management remains in place. Fibrobronchoscopy planned to be done tomorrow morning. CT scan of the chest will be obtained without contrast for assessment of the current pulmonary abnormality. Possible additional area of atelectasis. The patient's right lower lobe cannot be completely excluded. Bronchodilator will be continued. Other therapy, plan of management, additional treatment changes will be made for based on progression of his illness. Usual care, other plan of management as well. Supportive care. Additional treatment changes will be made based on progression of the illness. The patient will be given trophic feeding at this time on the mechanical ventilator hyperchloric because of severe morbid obesity. Critical care evaluation and management of the patient was 42 minutes. JANA WEBSTER MD CM:CONSTR:REPORT OF CONSULTATION [id number] 05/29/19 1930 interface
--- NOTE | ~2019-05-28 | PR ---
[place], [place] PROGRESS NOTE NAME: RUTHIE MONTELONGO SR [facility] #: [id number] UNIT #: [id number] ROOM: [facility] DOCTOR: ELEANOR GARZA MD,JANA BIRTHDATE: [birth year] DOS: 06/05/2019 SUBJECTIVE: The patient continued to do well medical management was treated. Diuretic therapy, fluid for congestive heart failure. He remains awake and alert, on oxygen supplementation noted on 12 liter nasal cannula high flow yesterday, which has been gradually decreased. Oxygen supplementation decreased to 8 liters this morning. Pulse oxygen saturation recorded as 95%-96% with that. He has not been noted symptoms of fever or chills. Denies symptoms of hemoptysis. The patient has been assessed for the long-[facility] acute care facility and per nursing staff has been accepted for transfer to [facility]. The patient noted general weakness and fatigue. He has not been noted symptoms of hemoptysis. There were no symptoms of headache or diplopia. Remaining systems were reviewed. They were noted all negative. OBJECTIVE: GENERAL: The patient is comfortably resting this morning, noted fully awake and alert. He has been tolerating the diet, which was ordered. ITAL SIGNS: Normal temperature, respiratory rate 16, heart rate 117, atrial fibrillation, blood pressure 100/56. Pulse oxygen saturation recorded on 10 liter nasal cannula 98% saturation. HEENT: Examination shows head was atraumatic. Eyes nonicterus. NECK: Supple. It was obese. CARDIOVASCULAR SYSTEM: S1, S2 is audible. LUNGS: The patient was noted with decreased breath in the lungs bilaterally. ABDOMEN: Noted soft, severe obesity. EXTREMITIES: Chronic changes with superimposed edema. VISIBLE SKIN: Dryness of the skin. MUSCULOSKELETAL: Without acute deformities. CENTRAL NERVOUS SYSTEM: Cranial nerves 2-12 intact. General weakness was noted. LABORATORY DATA: CBC today: WBC count 18.2, hemoglobin of 12, platelet count was normal. CMP that was done this morning, BUN 30, creatinine normal. CO2 was 41 and chloride of 96. Chest x-ray that was done this morning was noted with the pleural fluid noted with congestive heart failure, which has been improving gradually as compared with the previous chest x-ray. IMPRESSION: The patient with gradual resolution improvement continued for acute hypoxic and hypercapnic respiratory failure, resolving acute pneumonia, metabolic alkalosis, multifactorial secondary to hypercarbia and intravascular volume depletion with the diuretic therapy. Overall debility. Acute exacerbation of chronic obstructive pulmonary disease as well. PLAN OF MANAGEMENT: Continuation of the diuretic at this time. Diamox, the patient will be continued for metabolic alkalosis. Continue other therapy, plan of management transfer the patient long-term care facility upon accepting and availability of the bed. [place], [place] PROGRESS NOTE NAME: RUTHIE MONTELONGO SR UNIT #: [id number] ROOM: [facility] DOCTOR: JANA ALBERTO MD BIRTHDATE: [birth year] JANA WEBSTER MD CM:GM [id number] JANA GARZA MD 06/05/19 1018 interface
--- NOTE | ~2019-05-28 | EKG ---
[place], [place] ELECTROCARDIOGRAM REPORT NAME: RUTHIE MONTELONGO SR UNIT #: [id number] ROOM: [facility] DOCTOR: BRAYAN DRAFT REPORT BIRTHDATE: [birth year] [facility] Test Date: 2019-05-28 Test Time: 14:32:47 Pat Name: RUTHIE MONTELONGO Department: Room: [facility] Gender: M Credit Office Manager: : 1965 Requested By: ZENON HORNER PA-C Order Number: [id number] Reading MD: Manjit Temple MD Measurements Intervals [place] Rate: 103 P: 120 VA: 201 QRS: 131 QRSD: 124 T: 14 QT: 373 QTc: 489 Interpretive Statements Sinus tachycardia Borderline prolonged VA interval Nonspecific intraventricular conduction delay Abnormal inferior Q waves Artifact in lead(s) I,II,III,aVR,aVL,aVF and baseline wander in lead(s) V1,V2,V4 Compared to ECG 01/18/2019 18:32:37 Inferior Q waves now present Q waves now present Atrial flutter no longer present AV block, advanced (high-grade) no longer present Myocardial infarct finding no longer present Electronically Signed On 05-29-2019 5:07:31 PDT by Manjit Temple MD CM:EKGRPT:ELECTROCARDIOGRAM REPORT [id number] ZENON HORNER PA-C EPIPHANY DRAFT REPORT ZENON HORNER PA-C
--- NOTE | ~2019-05-28 | PR ---
[place], [place] PROGRESS NOTE NAME: RUTHIE MONTELONGO SR [facility] #: [id number] UNIT #: [id number] ROOM: [facility] DOCTOR: JANA ALBERTO MD BIRTHDATE: [birth year] DOS: 05/30/2019 PULMONARY PROGRESS NOTE SUBJECTIVE: The patient seen and examined on 05/30/2019. He was planned for bronchoscopy done today because of the excess amount of secretion production, which is noted thick from the endotracheal aspirate. He still requires oxygen supplementation, 60-65% on mechanical ventilator. No changes were made. He has been continued feeding, which has been tolerated as well. He had not been noted any ongoing acute hemodynamic instability. The patient has not been noted any symptoms of hemoptysis observed. He has been sedated. The patient is intubated as well. He has not been noted with any other major complications. CT scan of the chest was completed yesterday without contrast and it was assessed. REVIEW OF SYSTEMS: Could not be completed since the patient is intubated. PHYSICAL EXAMINATION: GENERAL: A 54-year-old male patient who is currently intubated, remains on mechanical ventilator this morning of assessment. VITAL SIGNS: Low grade fever noted in the last 24 hours, 99.6 degree Fahrenheit, respiratory rate range between 18-16 seemed set on the mechanical ventilator, heart rate recorded as 69-71. The blood pressure 116/60-113/62. Pulse oxygen saturation recorded on 65% oxygen as 100% saturation. HEENT: Examination shows head was atraumatic. Eyes nonicterus. NECK: Supple. It was obese. Orogastric tube is in place. CARDIOVASCULAR: S1, S2 is audible. LUNGS: Noted decreased breath sounds in the lungs noted bilaterally. ABDOMEN: Soft with severe obesity. Bowel sounds present. EXTREMITIES: Chronic changes. VISIBLE SKIN: Dryness of skin. MUSCULOSKELETAL: Without any acute deformities. CENTRAL NERVOUS SYSTEM: Currently, the patient is sedated. LABORATORY DATA: CBC that was done this morning, WBC count 8.9, hemoglobin 10, hematocrit was normal, and platelet count was normal. CMP that was done this morning, glucose 175, BUN 22, creatinine normal, potassium 3.4. The endotracheal aspirate on 05/28/2019 was noted with no bacterial growth. CT scan of the chest that was done on 08/___ was personally reviewed, shows evidence of bilateral pleural fluid noted with infiltration noted in the right upper lobe as well as possible infiltration with additional atelectasis of the right lower lobe cannot be completely excluded. Arterial blood gas this morning, pH of 7.40, pCO2 55.5, pO2 104 on 65% oxygen assist control mode mechanical ventilation, tidal volume 700 mL, PEEP of 8.0. IMPRESSION: 1. Persistent severe acute hypoxic respiratory failure with a correction in the hypercapnia as well. 2. Acute exacerbation of chronic obstructive pulmonary disease. 3. Acute pneumonia. 4. Bilateral pleural fluid, possible congestive heart failure cannot be [place], [place] PROGRESS NOTE NAME: RUTHIE MONTELONGO SR UNIT #: [id number] ROOM: [facility] DOCTOR: ELEANOR GARZA MD,JANA BIRTHDATE: [birth year] completely excluded. 5. The patient with severe morbid obesity as well. 6. Mild hypokalemia. 7. Obstructive sleep apnea disorder was also suspected. PLAN OF MANAGEMENT: Decrease the oxygen supplementation to 60%. Proceed with the Fiberoptic bronchoscopy. Continue with intravenous corticosteroids. Medical management of hyperglycemia will be continued. No change in antibiotic will be necessary based on the current culture results. Any other additional treatment changes as necessary could be ordered after the bronchoscopy. DVT prophylaxis. Other supportive therapy, plan of management, care plan and treatment as well. Continue IV diuretic with acute congestive heart failure as ordered 40 mg of Lasix b.i.d. Supplementation of electrolytes accordingly. Continue nutrition support with trophic feeding. Continuation of the anticoagulation with Eliquis for his long-term atrial fibrillation management. Total time in pulmonary critical care evaluation and management excluding and available procedure was 38 minutes. JANA WEBSTER MD CM:PNTRANS [id number] JANA GARZA MD 05/30/19 1433 interface
--- NOTE | ~2019-05-28 | EKG ---
[place], [place] ELECTROCARDIOGRAM REPORT NAME: RUTHIE MONTELONGO SR UNIT #: [id number] ROOM: [facility] DOCTOR: BRAYAN DRAFT REPORT BIRTHDATE: [birth year] [facility] Test Date: 2019-05-28 Test Time: 17:54:01 Pat Name: RUTHIE MONTELONGO Department: Room: [facility] Gender: M Search Specialist: NAZANIN : 1965 Requested By: ZENON HORNER PA-C Order Number: [id number] Reading MD: Manjit Temple MD Measurements Intervals [place] Rate: 92 P: VT: QRS: 127 QRSD: 125 T: 9 QT: 421 QTc: 521 Interpretive Statements Atrial fibrillation Nonspecific intraventricular conduction delay Inferior infarct, age indeterminate Baseline wander in lead(s) V1 Compared to ECG 01/18/2019 18:32:37 Atrial flutter no longer present AV block, advanced (high-grade) no longer present Myocardial infarct finding still present Electronically Signed On 05-29-2019 5:08:00 PDT by Manjit Temple MD CM:EKGRPT:ELECTROCARDIOGRAM REPORT [id number] ZENON HORNER PA-C EPIPHANY DRAFT REPORT ZENON HORNER PA-C
--- NOTE | ~2019-05-28 | PR ---
[place], [place] PROGRESS NOTE NAME: [facility]IE [facility]ONTELONGO [facility] [id number] UNIT #: [id number] ROOM: [facility] DOCTOR: ELEANOR GARZA MD,JANA BIRTHDATE: [birth year] DOS: 05/31/2019 SUBJECTIVE: The patient remains on mechanical ventilator. The patient is resting, oxygen supplementation, continue 10 liters, 60% oxygen, remains on assist control, volume control, mechanical ventilation. Bronchoscopy done yesterday successfully as well. He had not reported any ongoing acute hemodynamic instability. The patient has been noted without any respiratory problems as well. The oxygen saturation noted with gradual improvement. Pulse oxygen saturation. Feeding was continue, trophic feeding, which was well tolerated by the patient. He was also noted to be afebrile. REVIEW OF SYSTEMS: Cannot be performed. OBJECTIVE: GENERAL: Noted a 54-year-old white male patient currently on the mechanical ventilator this morning of assessment. He has been resting comfortably. He is sedated. Mental status has been reported normal with sedation vacation. VITAL SIGNS: Normal temperature, respiratory rate of 19-17, heart rate 77-112, blood pressure 110/66-122/74. The pulse oxygen saturation recorded on 60% oxygen 97% saturation. HEAD, EYES, EARS, NOSE, AND THROAT: Examination shows head was atraumatic. Eyes nonicterus. NECK: Supple and obese. Endotracheal tube and OG tube remains in place. CARDIOVASCULAR SYSTEM: S1, S2 audible. LUNGS: Decreased breath sounds noted in the lungs with expiratory wheezing, which are noted mild. ABDOMEN: Noted severe morbidly obese. Bowel sounds present. EXTREMITIES: Noted chronic venous stasis pigmentation dryness of the skin as well. MUSCULOSKELETAL: Without acute deformities. CENTRAL NERVOUS SYSTEM: The patient noted to opening his eyes with sedation vacation. LABORATORY DATA: This morning arterial blood gas assist control, volume control with 60% oxygen, pH of 7.39, pCO2 of 56, pO2 of 99.5. CBC of this morning, WBC count 11.0, hemoglobin 10.5, hematocrit 37.8, and platelet count 205,000. BMP this morning, glucose 120, BUN normal, creatinine normal, magnesium, and phosphatase was normal. Magnesium was normal. IMPRESSION: 1. The patient has been currently noted with acute pneumonia with acute hypercapnic and hypoxic respiratory failure with chronic hypercapnia hypoxic apnea. 2. Morbid obesity. 3. Acute exacerbation of chronic obstructive pulmonary disease was noted as well. 4. Severe morbid obesity as well. PLAN OF THERAPY: Continuation of the current plan of care at this time except reduction of the oxygen supplementation today would be done 50% oxygen [place], [place] PROGRESS NOTE NAME: RUTHIE [facility]ONTELONGO SR [facility] [id number] UNIT #: [id number] ROOM: [facility] DOCTOR: ELEANOR GARZA MD,JANA BIRTHDATE: [birth year] supplementation. Continue mechanical ventilation, current settings otherwise for the next 24 hours. Weaning will be started after that. Other therapy, plan of management. Additional treatment changes will be made based on progression of the illness. Obtain a chest x-ray in the morning to reassess the progression of the pneumonia, radiologically as well. Total time in pulmonary critical care evaluation and management was 36 minutes. JANA WEBSTER MD CM:PNTRANS [id number] JANA GARZA MD 05/31/19 1613 interface
--- NOTE | ~2019-05-28 | PR ---
[place], [place] PROGRESS NOTE NAME: RUTHIE MONTELONGO SR [facility] #: [id number] UNIT #: [id number] ROOM: [facility] DOCTOR: ELEANOR GARZA MD,JANA BIRTHDATE: [birth year] DOS: 06/01/2019 SUBJECTIVE: The patient remains on mechanical ventilator. Mental status has been still noted adequate with sedation vacation per nursing staff. Has not been noted any acute hemodynamic instability. His oxygen requirement at nighttime was noted as 60%, but the patient was decreased back to oxygen supplementation 50% this morning. All the other mechanical ventilation remains unchanged. Arterial blood gas was done this morning and 60% oxygen. He has not been noted any significant secretion production from endotracheal aspirate. The feeding was continued patient. OBJECTIVE: VITAL SIGNS: Low-grade fever was noted 100.3 degrees Fahrenheit this morning to 99.4 degree Fahrenheit. HEENT: Otherwise, the patient remains intubated. Orogastric tube is in place. Endotracheal tube is in place. NECK: Supple. CARDIOVASCULAR: S1, S2 is audible. LUNGS: Noted with decreased breath sounds in the lungs bilaterally. Occasional wheezing was present. ABDOMEN: Soft and obese. EXTREMITIES: Chronic changes with some superimposed edema was also noted. Dryness of the skin of the extremities. MUSCULOSKELETAL: Without acute deformities. CENTRAL NERVOUS SYSTEM: The patient was noted with following vocal commands with reduction in sedation or sedation vacation. LABORATORY DATA: CBC this morning: WBC count 12.8. Hemoglobin 10.8. Hematocrit 37.5. Platelet count was normal. BMP this morning, BUN 20, creatinine normal, glucose 203, CO2 of 35. Chest x-ray shows pulmonary venous congestion marking infiltration in the right lower lobe remains unchanged. Pulmonary venous congestion marking noted on today's chest x-ray. Arterial blood gas 60% oxygen this morning, pH of 7.40, pCO2 of 60, pO2 of 98.8. IMPRESSION: 1. Acute pneumonia. Negative cultures with fibrobronchoscopy. Chronic anticoagulation with atrial fibrillation. Pulmonary venous congestion and congestive heart failure was also noted. Currently treated with Lasix 40 mg IV b.i.d. 2. Morbid obesity. 3. Obstructive sleep apnea disorder, suspicion as well. 4. Acute exacerbation of chronic obstructive pulmonary disease. PLAN OF MANAGEMENT: Continue diuretics, bronchodilators. Take the patient off sedation completely for the weaning assess with CPAP 5, pressure support of 10 if tolerated will be continued for 2 hours. Continue diuretics. Continuation of the antibiotics. Decreased the Solu-Medrol dose from 60 mg b.i.d. to 40 mg b.i.d. dosing since the wheezing has been decreasing. Continue trophic feeding. Other additional treatment changes will be made based on the progression of the [place], [place] PROGRESS NOTE NAME: RUTHIE MONTELONGO SR UNIT #: [id number] ROOM: [facility] DOCTOR: JANA ALBERTO MD BIRTHDATE: [birth year] illness. Continue to maximize the cardiopulmonary disease. Continue anticoagulation with Eliquis. Ventilator bundle management will be continued. Supportive care. Other additional treatment changes will be made for based on progression of his illness. If the weaning will be noted successful, the patient will be considered possible liberation from mechanical ventilation and use of post-liberation of mechanical ventilation BiPAP therapy because hypercapnia as well. Total time in pulmonary critical care evaluation and management today is 38 minutes. JANA WEBSTER MD CM:GM [id number] JANA GARZA MD 06/01/192022 interface
--- NOTE | ~2019-05-28 | EKG ---
[place], [place] ELECTROCARDIOGRAM REPORT NAME: RUTHIE MONTELONGO SR UNIT #: [id number] ROOM: [facility] DOCTOR: BRAYAN DRAFT REPORT BIRTHDATE: [birth year] [facility] Test Date: 2019-05-28 Test Time: 20:19:52 Pat Name: RUTHIE MONTELONGO Department: Room: [facility] Gender: M Ventilation Worker: NAZANIN : 1965 Requested By: ZENON HORNER PA-C Order Number: [id number] Reading MD: Manjit Temple MD Measurements Intervals [place] Rate: 77 P: 41 NV: 199 QRS: 105 QRSD: 122 T: 52 QT: 479 QTc: 543 Interpretive Statements Sinus rhythm Probable left atrial enlargement Nonspecific intraventricular conduction delay Baseline wander in lead(s) V2 Compared to ECG 01/18/2019 18:32:37 Atrial flutter no longer present AV block, advanced (high-grade) no longer present Myocardial infarct finding no longer present Electronically Signed On 05-29-2019 5:08:39 PDT by Manjit Temple MD CM:EKGRPT:ELECTROCARDIOGRAM REPORT 18 [id number] ZENON HORNER PA-C EPIPHANY DRAFT REPORT ZENON HORNER PA-C
--- NOTE | ~2019-05-28 | PR ---
[place], [place] PROGRESS NOTE NAME[id number] #: [id number] ROOM: [facility] DOCTOR: ELEANOR GARZA MD,JANA BIRTHDATE: [birth year] DOS: 06/02/2019 PULMONARY CRITICAL CARE EVALUATION AND MANAGEMENT SUBJECTIVE: The patient was seen and examined on 06/02/2019, was noted comfortable at this time, sedated. He has been tried on the CPAP trial for weaning from mechanical ventilator, not noted successful. However, the patient noted significantly tachycardic with some response agitation, later on hypoxia as well. He was switched back to the assist-control mode of mechanical ventilation. However, the setting, which was previously done was changed by the respiratory therapist was not done accurately. The patient was started on PEEP of 5 cm, which was supposedly to be 10 cm of water. The patient's oxygen saturation did decrease resulting in increased oxygen requirement 60%, later on 55% recorded this morning. The patient has been sedated with intravenous Diprivan. He was given additional Lasix 40 mg, total of 120 mg IV Lasix was administered. This had resulted in negative fluid balance at 59 mL in the last 24 hours. Endotracheal secretion production remains small amount at this time, but not noted copious. He had not been noted any acute hemodynamic instability, required vasopressors. The patient was continued on the IV therapy with Diprivan and Versed combination for the sedation purposes. REVIEW OF SYSTEMS: Review of systems could not be performed. This morning, the patient was noted sedated with use of Diprivan and receiving the intravenous Versed as well. He has been noted low-grade fever. PHYSICAL EXAMINATION: VITAL SIGNS: Temperature 100.1 degrees Fahrenheit, normal temperature, respiratory rate of 18-15, heart rate 87-70, blood pressure 160/60-110/63. Intake recorded as 2226 mL, output 3816, negative 1590 mL recorded. Pulse oxygen saturation on 50% oxygen 94% saturation. HEENT: Examination shows head was atraumatic. Eyes nonicterus. NECK: Supple. CARDIOVASCULAR SYSTEM: S1, S2 is audible. LUNGS: Noted decreased breath sounds in the lungs bilaterally. There was no wheezing heard. ABDOMEN: Soft, obese, nontender. Bowel sounds present. EXTREMITIES: The patient was noted with chronic changes superimposed edema. Dryness of the skin of the lower extremities as well. MUSCULOSKELETAL: Without acute deformities. CENTRAL NERVOUS SYSTEM: Mental status noted normal. The patient is on sedation vacation. LABORATORY DATA: The patient's CBC this morning, WBC count 9.5, hemoglobin 10.6, platelet count 186,000. The BMP this morning, BUN 32, creatinine normal, glucose 198, potassium 3.4. Phosphorus 3.1, which remains normal. Arterial blood gas, pH of 7.45, pCO2 of 50, pO2 of 106 with 55% oxygen supplementation was noted with evidence of respiratory alkalosis. Acid fast smear and bronchial wash noted negative, pending culture results. The chest x-ray done this morning shows relatively high riding endotracheal tube. Finding noted congestive heart failure that remains persistent with pleural fluid on the right side. [place], [place] PROGRESS NOTE NAME: RUTHIE MONTELONGO SR UNIT #: [id number] ROOM: [facility] DOCTOR: ELEANOR GARZA MD,JANA BIRTHDATE: [birth year] IMPRESSION: 1. The patient has been currently noted with findings of acute respiratory failure with acute on chronic hypercapnia. 2. The patient with acute hypoxemic respiratory failure as well. 3. Bilateral pleural fluid with finding of congestive heart failure. 4. Severe morbid obesity. 5. Acute pneumonia, which has been treated with outpatient antibiotics, is responding to treatment. 6. Mild azotemia secondary to intermittent diuretics as well. 7. Severe morbid obesity, obstructive sleep apnea disorder. PLAN OF MANAGEMENT: Continue current dose of diuretics, Lasix 60 mg b.i.d. Respiratory culture collected with changing tidal volume of 650 mL and rate of 16. Repeat arterial blood gas to be done in about an hour to reassess improvement in the respiratory alkalosis. Today, weaning will not be attempted. After adequate diuresis, we will see the patient hopefully in the next 24 hours. The patient will be assessed again for the readiness for liberation from mechanical ventilator with CPAP trial. The PEEP, which was increased to 8 cm of water remains at the same level at this time. If the pleural fluid remains persistent, certainly the patient will be ordered ultrasound-guided pigtail catheter insertion for drainage of pleural fluid to help with the weaning process from mechanical ventilator. Continue other ventilator bundle management at this time. Usual care. Additional treatment changes will be made based on progression of his illness. Sedation to be continued to maintain adequate sedation level. Total time in pulmonary critical care, evaluation and management was 37 minutes. JANA WEBSTER MD CM:PNTRANS [id number] JANA GARZA MD 06/03/19 0030 interface
--- NOTE | ~2019-05-28 | PR ---
[employer], [place] PROGRESS NOTE NAME: RUTHIE MONTELONGO SR [facility] #: [id number] UNIT #: [id number] ROOM: [facility] DOCTOR: ELEANOR GARZA MD,JANA BIRTHDATE: [birth year] DOS: 06/03/2019 PULMONARY CRITICAL CARE MANAGEMENT SUBJECTIVE: The patient remains on mechanical ventilator. Oxygen supplementation was decreased to 50% in the last 24 hours, which has been tolerated. Pulse ox saturation recorded as 91-92% saturation. PEEP was continued 8 cm water as well. We will continue feeding the patient with the trophic feeding seemed to be well tolerated. He has been attempted for the weaning from mechanical ventilation, not noted successful a couple of days ago. Yesterday, there were no weaning attempt was made because of the patient's high oxygen requirement. He was continued on diuretic high dose Lasix 60 mg b.i.d. The negative fluid balance that was achieved as 1.291 liters. He had not been noted with any acute hemodynamic instability, fever noted low grade, which has resolved significantly in the last 12 hours. PHYSICAL EXAMINATION: GENERAL: The patient remains intubated at the present time. Orogastric tube is in place. VITAL SIGNS: The temperature 100.2 degrees Fahrenheit, normal temperature, respiratory rate 16-19, heart rate 83-82, blood pressure 116/68-112/66 recorded. Intake is 2.7 liters, output 4000 mL, negative 1.290 liters. The pulse oxygen saturation on 50% oxygen 91-92% saturation recorded. HEENT: Shows a chronically obese. Head was atraumatic. Eyes nonicterus. Severe morbid obesity. CARDIOVASCULAR: S1, S2 audible. LUNGS: The patient was noted with decreased breath sounds noted bilaterally. ABDOMEN: Soft and obese. EXTREMITIES: Noted chronic changes of redness on the skin with superimposed acute edema. MUSCULOSKELETAL: Without any acute deformities. CENTRAL NERVOUS SYSTEM: The patient is currently sedated. LABORATORY DATA: Arterial blood gas this morning, pH of 7.41, pCO2 of 68, PO of 73 on 50% oxygen assist control, PEEP of 8.0, tidal volume 650 mL, and respiratory rate of 16. CBC this morning, WBC count 12.5, hemoglobin 11, platelet count was normal. CMP this morning, BUN 37, creatinine normal, glucose 207, CO2 was 38. IMAGING STUDIES: The chest x-ray that was done this morning was reviewed. The chest x-ray shows the endotracheal tube, which is noted appropriately in place that was advanced yesterday. Reduction of the finding of congestive heart failure noted. However, the congestive heart failure, still noted completely resolved. Bilateral pleural fluid was also suspected. IMPRESSION: 1. The patient will be currently noted with acute on chronic severe hypercapnic hypoxemic respiratory failure and acute exacerbation of chronic obstructive pulmonary disease. 2. Acute pneumonia. [employer], [place] PROGRESS NOTE NAME: [id number] #: [id number] ROOM: [facility] DOCTOR: ELEANOR GARZA MD,JANA BIRTHDATE: [birth year] 3. Acute congestive heart failure with diastolic dysfunction as well, with preserved ejection fraction. 4. The patient with severe morbid obesity. 5. Suspect obstructive sleep apnea disorder. 6. Metabolic alkalosis, combination from the chronic hypercarbia. Diuretic therapy has been treated with intravascular volume depletion. PLAN OF MANAGEMENT: The patient will be tried again with CPAP trial for assessment of readiness for liberation from mechanical ventilator. Continue to maximize the management of the congestive heart failure, current diuretic. No changes need to be done. Continuation of bronchodilators for the patient. Eliquis, which was also ordered for DVT prophylaxis. Ventilator bundle management with additional treatment changes will be made based on the progression of the illness. Supportive therapy, plan of management, additional treatment changes continued to be made based on the progression of the illness. Total Pulmonary Critical Care evaluation management note for the patient was 35 minutes. JANA WEBSTER MD CM:PNTRANS [id number] JANA GARZA MD 06/03/19 174 interface
--- NOTE | ~2019-05-28 | PROC NOTE ---
[place], [place] PROCEDURE NOTE NAME: RUTHIE MONTELONGO SR UNIT #: [id number] ROOM: [facility] DOCTOR: ELEANOR GARZA MD,JANA BIRTHDATE: [birth year] DOS: 05/30/2019 PREOPERATIVE DIAGNOSIS: The patient with acute infiltration with thick secretion production from endotracheal tube. POSTOPERATIVE DIAGNOSES: The patient with acute infiltration with thick secretion production from endotracheal tube with pneumonia as well. Mucous impaction was also present scattered in the endobronchial tree cleared with normal saline wash. PROCEDURE DESCRIPTION: Informed consent obtained from the patient's family members. The patient brought to the OR. The patient was placed in supine position. The patient was already intubated for sedation. The patient was continued under the care of the anesthesia staff. After that, the video fiberoptic bronchoscope advanced to the endotracheal lower part trachea shows moderate amount of thick secretion with significant tracheal inflammation was considered. Isidra noted sharp. The right upper, right middle, right lower, left upper, lingular bronchus and lower lobe bronchi, which were all examined. There appeared to have a decrease in redness of the endobronchial mucosa. Mucous impaction noted in endobronchial tree subsegment which was cleared with normal saline wash. Bronchial washing taking adequately. Procedure well tolerated by the patient. Current finding highly suggestive of possibility of acute aspiration pneumonia. Bronchial washing sent for all the culture. The patient was transferred back to the ICU in stable condition after completion of bronchoscopy. Based on the current bronchoscopy, no change in treatment will be necessary. JANA WEBSTER MD CM:PROCNOTE:PROCEDURE NOTE [id number] JANA GARZA MD
--- NOTE | ~2019-05-28 | PR ---
[place], [place] PROGRESS NOTE NAME[id number] #: [id number] ROOM: [facility] DOCTOR: ELEANOR GARZA MD,JANA BIRTHDATE: [birth year] DOS: 06/04/2019 SUBJECTIVE: He was weaned from the mechanical ventilator from mechanical ventilator yesterday successfully with the CPAP mode used for the assessment of the liberation from mechanical ventilator weaning. He has been noted awake and alert post-liberation from mechanical ventilator. He was started on bilevel treatment, which has been well tolerated by the patient. The oxygen requirement initially noted 60%, which has been decreased to 45% this morning. Pulse oxygen saturation at bedside recorded as about 93-94% saturation. He has been nodding his head, vocal commands. He has been given oral medications with applesauce. The patient tolerated without difficulty. The patient was otherwise kept n.p.o. The feeding was withheld because of the several days intubation to assess possibility of oropharyngeal dysphagia. He had not been noted any acute hemodynamic instability, noted to be awake and alert. Not noted with any tachycardia or hypotension. No temperature elevation. REVIEW OF SYSTEMS: Limited, noted all negative. Past medical, family, social history remains unchanged, has reportedly done on this admission was reviewed. PHYSICAL EXAMINATION: VITAL SIGNS: Normal temperature, respiratory rate of 15-16, heart rate 95-75, blood pressure 115/67, . Pulse oxygen saturation on the bilevel 45 minutes of oxygen 93% saturation recorded at bedside. HEAD, EYES, EARS, NOSE, AND THROAT: Examination shows head was atraumatic. Eyes nonicterus. NECK: Supple. CARDIOVASCULAR SYSTEM: S1, S2 audible. LUNGS: Noted decreased breath sounds with questionable crackles. There was no wheezing. ABDOMEN: Soft and obese. EXTREMITIES: Chronic changes with resolving edema superimposed. VISIBLE SKIN: Dryness of the skin noted. MUSCULOSKELETAL: Without acute deformities. CENTRAL NERVOUS SYSTEM: No gross focal neurologic deficit. LABORATORY DATA: CBC today: WBC count 12.6, hemoglobin 11.3, platelet count was normal. Arterial blood gas that was done on the CPAP of 5, pressure support of 10, 60% oxygen, pH of 7.40, pCO2 of 70, pO2 of 82. Arterial blood gas 4 hours post-liberation from mechanical ventilator, pH of 7.38, pCO2 of 73.4, pO2 69.8. CBC of this morning, WBC count 12.6, hemoglobin 11.3, platelet count was normal. BMP this morning, BUN 32, creatinine normal, glucose 137. CO2 was 44. IMPRESSION: 1. The patient who has been currently noted with resolving acute congestive heart failure, pulmonary edema. 2. The patient with resolving acute hypercapnic and hypoxemic respiratory failure as well. 3. Acute exacerbation of chronic obstructive pulmonary disease. [place], [place] PROGRESS NOTE NAME: RUTHIE MONTELONGO SR UNIT #: [id number] ROOM: [facility] DOCTOR: ELEANOR GARZA MD,JANA BIRTHDATE: [birth year] 4. Acute pneumonia, resolving. 5. Bilateral pleural fluid. 6. Metabolic alkalosis secondary to diuretic therapy. 7. Chronic obesity with suspected obstructive sleep apnea disorder. PLAN OF MANAGEMENT: The patient will be started on Diamox at the present time to improve the metabolic alkalosis. Continue current diuretic. Obtain a chest x-ray in the morning to reassess the resolution of the pleural fluid and congestive heart failure finding. Other additional treatment changes will be made for the patient based on the progression of the illness. The patient will be assessed at bedside. The patient will be started on clear liquid and advanced as tolerated. Other therapy, plan of management. Additional treatment changes will be made based on the progression of the illness. Usual care. Dose of Solu-Medrol will be decreased to 40 mg daily. IV Protonix has been already discontinued. JANA WEBSTER MD CM:PNTRANS [id number] JANA GARZA MD 06/04/19 1334 interface
[2019-05-28 14:49] LABS: BASO # 0.1 10*3/uL (0.0-0.1); BASO % 0.6 % (0.0-1.0); EOS # 0.1 10*3/uL (0.0-0.4); EOS % 0.5 % (1.0-4.0); HEMATOCRIT 41.7 % (42.0-52.0); HEMOGLOBIN 11.4 g/dl (14.0-18.0); LYMPH # 2.1 10*3/uL (1.3-4.4); LYMPH % 12.6 % (27.0-41.0); MEAN CELL VOLUME 90.5 fl (80.0-94.0); MEAN CORPUSCULAR HGB 24.7 pg (27.0-31.0); MEAN CORPUSCULAR HGB CONC 27.3 g/dl (33.0-37.0); MEAN PLATELET VOLUME 9.9 fl (9.6-12.3); MONO # 1.1 10*3/uL (0.1-1.0); MONO % 6.7 % (3.0-9.0); NEUT # 13.4 10*3/uL (2.3-7.9); NEUT % 79.1 % (47.0-73.0); PLATELET COUNT AUTOMATED 189 10*3/uL (130-400); RED BLOOD COUNT 4.61 10*6/uL (4.50-5.90); RED CELL DISTRI WIDTH 15.4 % (0-14.5); WHITE BLOOD COUNT 16.9 10*3/uL (4.8-10.8)
[2019-05-28 14:59] LABS: ACT PARTIAL THROMBO TIME 30.1 SECONDS (20.0-32.1)
[2019-05-28 15:04] LABS: ALBUMIN 3.7 gm/dl (3.1-4.5); ALKALINE PHOSPHATASE 138 U/L (45-117); BUN 18 mg/dl (7-24); CHLORIDE 102 mmol/L (98-107); CREATININE 1.06 mg/dL (0.70-1.30); POTASSIUM 3.7 mmol/L (3.5-5.1); SGOT/AST 15 IU/L (3-35); SGPT/ALT 19 U/L (12-78); SODIUM 140 mmol/L (136-145); TOTAL PROTEIN 7.9 gm/dL (6.4-8.2)
[2019-05-28 15:07] LABS: TROPONIN I < 0.015 ng/ml (<0.045)
[2019-05-28 15:58] LABS: ABG BASE EXCESS -1.1 mmol/L (-2.0-2.0); ABG HCO3 33.3 mmol/l (22-26); ABG O2 SATURATION 83.5 % (95-97); ARTERIAL BLOOD GAS PO2 58.3 mmHg (80-90)
[2019-05-28 16:03] LABS: ARTERIAL BLOOD GAS PH 7.057 (7.35-7.45)
[2019-05-28 19:02] LABS: ABG BASE EXCESS -0.5 mmol/L (-2.0-2.0); ABG HCO3 31.3 mmol/l (22-26); ABG O2 SATURATION 98.2 % (95-97)
[2019-05-28 19:08] LABS: ARTERIAL BLOOD GAS PH 7.119 (7.35-7.45)
[2019-05-28 20:32] LABS: BILIRUBIN NEGATIVE (NEGATIVE); BLOOD 3+ (NEGATIVE); CLARITY CLEAR (CLEAR); COLOR YELLOW (YELLOW); GLUCOSE NEGATIVE (NEGATIVE); KETONE NEGATIVE (NEGATIVE); LEUKO ESTERASE NEGATIVE (NEGATIVE); NITRITE NEGATIVE (NEGATIVE); PH 5.5 (5.0-9.0); SPECIFIC GRAVITY 1.025 (1.005-1.030)
[2019-05-28 20:44] LABS: CALCIUM OXALATE CRYSTALS 1+; COARSE GRANULAR CAST 0-2; FINE GRANULAR CAST 0-2; RBC 21-30 rbc/hpf (0-2)
[2019-05-28 22:20] LABS: ABG BASE EXCESS 3.4 mmol/L (-2.0-2.0); ABG HCO3 32.1 mmol/l (22-26); ARTERIAL BLOOD GAS PH 7.253 (7.35-7.45); ARTERIAL BLOOD GAS PO2 67.5 mmHg (80-90)
[2019-05-28 22:22] LABS: ARTERIAL BLOOD GAS PCO2 74.8 mmHg (35-45)
[2019-05-29] VITALS (12 sets, daily range): BP systolic 104–132; BP diastolic 50–77
[2019-05-29 05:21] LABS: ALBUMIN 3.2 gm/dl (3.1-4.5); ALKALINE PHOSPHATASE 134 U/L (45-117); BUN 21 mg/dl (7-24); CHLORIDE 103 mmol/L (98-107); CHOLESTEROL 137 mg/dL (<200); CREATININE 1.15 mg/dL (0.70-1.30); HDL CHOLESTEROL 34 mg/dl (40-60); LDL CHOLESTEROL 82 mg/dL (9-159); POTASSIUM 3.9 mmol/L (3.5-5.1); SGOT/AST 13 IU/L (3-35); SGPT/ALT 15 U/L (12-78); SODIUM 140 mmol/L (136-145); TOTAL PROTEIN 7.2 gm/dL (6.4-8.2); TRIGLYCERIDES 103 mg/dl (<150); VLDL CHOLESTEROL 21 mg/dL (6-40)
[2019-05-29 05:58] LABS: HEMATOCRIT 38.9 % (42.0-52.0); HEMOGLOBIN 10.7 g/dl (14.0-18.0); MEAN CELL VOLUME 89.8 fl (80.0-94.0); MEAN CORPUSCULAR HGB 24.7 pg (27.0-31.0); MEAN CORPUSCULAR HGB CONC 27.5 g/dl (33.0-37.0); MEAN PLATELET VOLUME 11.5 fl (9.6-12.3); PLATELET COUNT AUTOMATED 178 10*3/uL (130-400); RED BLOOD COUNT 4.33 10*6/uL (4.50-5.90); WHITE BLOOD COUNT 10.5 10*3/uL (4.8-10.8)
[2019-05-29 07:02] LABS: ABG BASE EXCESS 5.4 mmol/L (-2.0-2.0); ABG HCO3 32.4 mmol/l (22-26); ABG O2 SATURATION 92.9 % (95-97); ARTERIAL BLOOD GAS PCO2 64.3 mmHg (35-45); ARTERIAL BLOOD GAS PH 7.322 (7.35-7.45); ARTERIAL BLOOD GAS PO2 59.5 mmHg (80-90)
[2019-05-29 07:40] LABS: TOTAL CELLS COUNTED 100 #CELLS
[2019-05-29 07:41] LABS: PLATELET SUFFICIENCY NORMAL (NORMAL)
[2019-05-29 07:49] LABS: VITAMIN D, 25-HYDROXY 29.8 ng/mL (30-100)
[2019-05-30] VITALS (12 sets, daily range): BP systolic 98–131; BP diastolic 51–83
[2019-05-30 06:14] LABS: ALBUMIN 3.1 gm/dl (3.1-4.5); ALKALINE PHOSPHATASE 107 U/L (45-117); BUN 22 mg/dl (7-24); CHLORIDE 101 mmol/L (98-107); CREATININE 0.93 mg/dL (0.70-1.30); POTASSIUM 3.4 mmol/L (3.5-5.1); SGOT/AST 11 IU/L (3-35); SGPT/ALT 14 U/L (12-78); SODIUM 140 mmol/L (136-145); TOTAL PROTEIN 6.7 gm/dL (6.4-8.2)
[2019-05-30 06:16] LABS: BASO % 0.1 % (0.0-1.0); HEMATOCRIT 35.4 % (42.0-52.0); LYMPH # 0.6 10*3/uL (1.3-4.4); LYMPH % 6.4 % (27.0-41.0); MEAN CORPUSCULAR HGB 24.3 pg (27.0-31.0); MEAN CORPUSCULAR HGB CONC 28.2 g/dl (33.0-37.0); MEAN PLATELET VOLUME 10.9 fl (9.6-12.3); MONO # 0.6 10*3/uL (0.1-1.0); MONO % 6.4 % (3.0-9.0); NEUT # 7.7 10*3/uL (2.3-7.9); NEUT % 86.3 % (47.0-73.0); PLATELET COUNT AUTOMATED 179 10*3/uL (130-400); RED BLOOD COUNT 4.12 10*6/uL (4.50-5.90); RED CELL DISTRI WIDTH 15.3 % (0-14.5); WHITE BLOOD COUNT 8.9 10*3/uL (4.8-10.8)
[2019-05-30 06:23] LABS: MEAN CELL VOLUME 85.9 fl (80.0-94.0)
[2019-05-30 07:31] LABS: ABG BASE EXCESS 8.1 mmol/L (-2.0-2.0); ABG HCO3 33.8 mmol/l (22-26); ABG O2 SATURATION 98.5 % (95-97); ARTERIAL BLOOD GAS PCO2 55.5 mmHg (35-45); ARTERIAL BLOOD GAS PH 7.402 (7.35-7.45)
[2019-05-31] VITALS (12 sets, daily range): BP systolic 100–125; BP diastolic 57–87
[2019-05-31 06:10] LABS: HEMATOCRIT 37.8 % (42.0-52.0); HEMOGLOBIN 10.8 g/dl (14.0-18.0); MEAN CELL VOLUME 84.9 fl (80.0-94.0); MEAN CORPUSCULAR HGB 24.3 pg (27.0-31.0); MEAN CORPUSCULAR HGB CONC 28.6 g/dl (33.0-37.0); MEAN PLATELET VOLUME 11.5 fl (9.6-12.3); PLATELET COUNT AUTOMATED 205 10*3/uL (130-400); RED BLOOD COUNT 4.45 10*6/uL (4.50-5.90); RED CELL DISTRI WIDTH 15.4 % (0-14.5)
[2019-05-31 06:21] LABS: BUN 24 mg/dl (7-24); CHLORIDE 102 mmol/L (98-107); CREATININE 0.99 mg/dL (0.70-1.30); POTASSIUM 3.7 mmol/L (3.5-5.1); SODIUM 141 mmol/L (136-145)
[2019-05-31 06:22] LABS: PHOSPHOROUS 2.9 mg/dL (2.5-4.9)
[2019-05-31 06:59] LABS: OVALOCYTES FEW; PLATELET SUFFICIENCY NORMAL (NORMAL); TOTAL CELLS COUNTED 100 #CELLS
[2019-05-31 07:36] LABS: ABG BASE EXCESS 8.4 mmol/L (-2.0-2.0); ABG HCO3 34.3 mmol/l (22-26); ABG O2 SATURATION 97.8 % (95-97); ARTERIAL BLOOD GAS PCO2 56.8 mmHg (35-45); ARTERIAL BLOOD GAS PH 7.399 (7.35-7.45); ARTERIAL BLOOD GAS PO2 99.5 mmHg (80-90)
[2019-05-31 12:10] LABS: ACID FAST SPEC PROCESSING Concentration (.)
[2019-06-01] VITALS (12 sets, daily range): BP systolic 96–122; BP diastolic 50–70
[2019-06-01 05:46] LABS: BASO % 0.1 % (0.0-1.0); EOS % 0.1 % (1.0-4.0); HEMATOCRIT 37.5 % (42.0-52.0); HEMOGLOBIN 10.8 g/dl (14.0-18.0); LYMPH # 0.5 10*3/uL (1.3-4.4); LYMPH % 3.6 % (27.0-41.0); MEAN CELL VOLUME 85.6 fl (80.0-94.0); MEAN CORPUSCULAR HGB 24.7 pg (27.0-31.0); MEAN CORPUSCULAR HGB CONC 28.8 g/dl (33.0-37.0); MONO # 0.7 10*3/uL (0.1-1.0); MONO % 5.5 % (3.0-9.0); NEUT # 11.6 10*3/uL (2.3-7.9); NUCLEATED RED BLOOD CELL 0.2 % (0.0-0.0); PLATELET COUNT AUTOMATED 208 10*3/uL (130-400); RED BLOOD COUNT 4.38 10*6/uL (4.50-5.90); RED CELL DISTRI WIDTH 15.4 % (0-14.5); WHITE BLOOD COUNT 12.8 10*3/uL (4.8-10.8)
[2019-06-01 05:52] LABS: BUN 28 mg/dl (7-24); CHLORIDE 101 mmol/L (98-107); CREATININE 0.99 mg/dL (0.70-1.30); PHOSPHOROUS 2.7 mg/dL (2.5-4.9); POTASSIUM 3.7 mmol/L (3.5-5.1); SODIUM 138 mmol/L (136-145)
[2019-06-01 08:29] LABS: ABG BASE EXCESS 10.9 mmol/L (-2.0-2.0); ABG HCO3 36.9 mmol/l (22-26); ABG O2 SATURATION 98.5 % (95-97); ARTERIAL BLOOD GAS PCO2 60.5 mmHg (35-45); ARTERIAL BLOOD GAS PH 7.406 (7.35-7.45); ARTERIAL BLOOD GAS PO2 98.8 mmHg (80-90)
[2019-06-01 20:10] LABS: ALBUMIN 3.2 gm/dl (3.1-4.5); ALKALINE PHOSPHATASE 88 U/L (45-117); BUN 30 mg/dl (7-24); CHLORIDE 99 mmol/L (98-107); CREATININE 1.16 mg/dL (0.70-1.30); POTASSIUM 3.7 mmol/L (3.5-5.1); SGOT/AST 20 IU/L (3-35); SODIUM 141 mmol/L (136-145); TOTAL PROTEIN 6.8 gm/dL (6.4-8.2)
[2019-06-01 20:12] LABS: SGPT/ALT 19 U/L (12-78)
[2019-06-02] VITALS (12 sets, daily range): BP systolic 96–115; BP diastolic 53–69
[2019-06-02 05:00] LABS: EOS % 0.1 % (1.0-4.0); HEMATOCRIT 37.6 % (42.0-52.0); HEMOGLOBIN 10.6 g/dl (14.0-18.0); LYMPH # 0.6 10*3/uL (1.3-4.4); LYMPH % 6.3 % (27.0-41.0); MEAN CELL VOLUME 86.2 fl (80.0-94.0); MEAN CORPUSCULAR HGB 24.3 pg (27.0-31.0); MEAN CORPUSCULAR HGB CONC 28.2 g/dl (33.0-37.0); MEAN PLATELET VOLUME 11.4 fl (9.6-12.3); MONO # 0.9 10*3/uL (0.1-1.0); MONO % 9.3 % (3.0-9.0); NEUT # 7.9 10*3/uL (2.3-7.9); NEUT % 83.6 % (47.0-73.0); PLATELET COUNT AUTOMATED 186 10*3/uL (130-400); RED BLOOD COUNT 4.36 10*6/uL (4.50-5.90); RED CELL DISTRI WIDTH 15.2 % (0-14.5); WHITE BLOOD COUNT 9.5 10*3/uL (4.8-10.8)
[2019-06-02 05:28] LABS: BUN 32 mg/dl (7-24); CHLORIDE 99 mmol/L (98-107); CHOLESTEROL 165 mg/dL (<200); CREATININE 1.02 mg/dL (0.70-1.30); HDL CHOLESTEROL 30 mg/dl (40-60); LDL CHOLESTEROL 94 mg/dL (9-159); PHOSPHOROUS 3.1 mg/dL (2.5-4.9); POTASSIUM 3.4 mmol/L (3.5-5.1); SODIUM 142 mmol/L (136-145); TRIGLYCERIDES 207 mg/dl (<150); VLDL CHOLESTEROL 41 mg/dL (6-40)
[2019-06-02 07:43] LABS: ABG BASE EXCESS 13.8 mmol/L (-2.0-2.0); ABG HCO3 39.7 mmol/l (22-26); ABG O2 SATURATION 99.2 % (95-97); ARTERIAL BLOOD GAS PCO2 58.1 mmHg (35-45); ARTERIAL BLOOD GAS PH 7.452 (7.35-7.45)
[2019-06-02 10:14] LABS: ABG BASE EXCESS 14.7 mmol/L (-2.0-2.0); ABG HCO3 41.4 mmol/l (22-26); ABG O2 SATURATION 97.3 % (95-97); ARTERIAL BLOOD GAS PCO2 65.6 mmHg (35-45); ARTERIAL BLOOD GAS PH 7.421 (7.35-7.45)
[2019-06-03] VITALS (8 sets, daily range): BP systolic 101–119; BP diastolic 55–72
[2019-06-03 05:29] LABS: ALBUMIN 3.2 gm/dl (3.1-4.5); ALKALINE PHOSPHATASE 89 U/L (45-117); BUN 37 mg/dl (7-24); CHLORIDE 98 mmol/L (98-107); PHOSPHOROUS 3.8 mg/dL (2.5-4.9); POTASSIUM 3.7 mmol/L (3.5-5.1); SGOT/AST 38 IU/L (3-35); SGPT/ALT 39 U/L (12-78); SODIUM 145 mmol/L (136-145); TOTAL PROTEIN 6.7 gm/dL (6.4-8.2)
[2019-06-03 06:03] LABS: BASO % 0.1 % (0.0-1.0); EOS % 0.1 % (1.0-4.0); HEMOGLOBIN 11.1 g/dl (14.0-18.0); LYMPH # 0.7 10*3/uL (1.3-4.4); LYMPH % 5.3 % (27.0-41.0); MEAN CELL VOLUME 87.5 fl (80.0-94.0); MEAN CORPUSCULAR HGB 24.3 pg (27.0-31.0); MEAN CORPUSCULAR HGB CONC 27.8 g/dl (33.0-37.0); MEAN PLATELET VOLUME 11.7 fl (9.6-12.3); MONO # 0.9 10*3/uL (0.1-1.0); MONO % 7.3 % (3.0-9.0); NEUT # 10.8 10*3/uL (2.3-7.9); NEUT % 86.2 % (47.0-73.0); PLATELET COUNT AUTOMATED 193 10*3/uL (130-400); RED BLOOD COUNT 4.57 10*6/uL (4.50-5.90); RED CELL DISTRI WIDTH 15.1 % (0-14.5); WHITE BLOOD COUNT 12.5 10*3/uL (4.8-10.8)
[2019-06-03 07:28] LABS: ABG BASE EXCESS 15.4 mmol/L (-2.0-2.0); ABG HCO3 42.5 mmol/l (22-26); ABG O2 SATURATION 95.4 % (95-97); ARTERIAL BLOOD GAS PCO2 68.4 mmHg (35-45); ARTERIAL BLOOD GAS PH 7.414 (7.35-7.45); ARTERIAL BLOOD GAS PO2 73.8 mmHg (80-90)
[2019-06-03 11:15] LABS: ABG BASE EXCESS 16.1 mmol/L (-2.0-2.0); ABG HCO3 43.7 mmol/l (22-26); ARTERIAL BLOOD GAS PH 7.408 (7.35-7.45); ARTERIAL BLOOD GAS PO2 82.6 mmHg (80-90)
[2019-06-03 11:26] LABS: ARTERIAL BLOOD GAS PCO2 70.5 mmHg (35-45)
[2019-06-03 13:57] LABS: ABG BASE EXCESS 15.3 mmol/L (-2.0-2.0); ABG O2 SATURATION 93.2 % (95-97); ARTERIAL BLOOD GAS PH 7.388 (7.35-7.45); ARTERIAL BLOOD GAS PO2 69.8 mmHg (80-90)
[2019-06-03 14:04] LABS: ARTERIAL BLOOD GAS PCO2 73.4 mmHg (35-45)
[2019-06-04] VITALS (7 sets, daily range): BP systolic 90–115; BP diastolic 55–80
[2019-06-04 04:35] LABS: BASO % 0.1 % (0.0-1.0); EOS % 0.2 % (1.0-4.0); HEMATOCRIT 40.9 % (42.0-52.0); HEMOGLOBIN 11.3 g/dl (14.0-18.0); LYMPH # 0.5 10*3/uL (1.3-4.4); LYMPH % 4.3 % (27.0-41.0); MEAN CELL VOLUME 88.3 fl (80.0-94.0); MEAN CORPUSCULAR HGB 24.4 pg (27.0-31.0); MEAN CORPUSCULAR HGB CONC 27.6 g/dl (33.0-37.0); MEAN PLATELET VOLUME 11.5 fl (9.6-12.3); MONO # 0.8 10*3/uL (0.1-1.0); NEUT # 11.2 10*3/uL (2.3-7.9); NEUT % 88.8 % (47.0-73.0); PLATELET COUNT AUTOMATED 166 10*3/uL (130-400); RED BLOOD COUNT 4.63 10*6/uL (4.50-5.90); RED CELL DISTRI WIDTH 14.9 % (0-14.5); WHITE BLOOD COUNT 12.6 10*3/uL (4.8-10.8)
[2019-06-04 04:50] LABS: ALKALINE PHOSPHATASE 85 U/L (45-117); BUN 32 mg/dl (7-24); CHLORIDE 97 mmol/L (98-107); CREATININE 0.88 mg/dL (0.70-1.30); PHOSPHOROUS 3.5 mg/dL (2.5-4.9); POTASSIUM 3.9 mmol/L (3.5-5.1); SGOT/AST 35 IU/L (3-35); SGPT/ALT 48 U/L (12-78); SODIUM 141 mmol/L (136-145); TOTAL PROTEIN 6.5 gm/dL (6.4-8.2)
[2019-06-05] VITALS: BP 102/60
[2019-06-05 04:00] VITALS: BP 106/67
[2019-06-05 06:00] LABS: ALKALINE PHOSPHATASE 80 U/L (45-117); BUN 33 mg/dl (7-24); CHLORIDE 96 mmol/L (98-107); CREATININE 0.96 mg/dL (0.70-1.30); PHOSPHOROUS 2.5 mg/dL (2.5-4.9); POTASSIUM 3.1 mmol/L (3.5-5.1); SGOT/AST 33 IU/L (3-35); SGPT/ALT 49 U/L (12-78); SODIUM 141 mmol/L (136-145); TOTAL PROTEIN 6.3 gm/dL (6.4-8.2)
[2019-06-05 06:06] LABS: MEAN CORPUSCULAR HGB 24.2 pg (27.0-31.0)
[2019-06-05 06:45] LABS: TOTAL CELLS COUNTED 100 #CELLS
[2019-06-05 06:46] LABS: STOMATOCYTE FEW
[2019-06-05 07:48] LABS: HEMATOCRIT 43.1 % (42.0-52.0); MEAN CELL VOLUME 86.9 fl (80.0-94.0); MEAN CORPUSCULAR HGB CONC 27.8 g/dl (33.0-37.0); MEAN PLATELET VOLUME 10.8 fl (9.6-12.3); PLATELET COUNT AUTOMATED 203 10*3/uL (130-400); RED BLOOD COUNT 4.96 10*6/uL (4.50-5.90); WHITE BLOOD COUNT 18.2 10*3/uL (4.8-10.8)
[2019-06-05 07:54] LABS: PLATELET SUFFICIENCY NORMAL (NORMAL)
[2019-06-05 08:00] VITALS: BP 108/66
[2019-06-05] MEDS ORDERED: SOLU-MEDRO40 MG/1 ML IV (10:02)
[2019-06-05] MEDS ORDERED: FUROSEMIDE10 MG/1 M1 IV (10:02)
[2019-06-05] MEDS ORDERED: MUCINEX DM 30/61 TAB PO (10:02)
[2019-06-05] MEDS ORDERED: LEVOFLOXAC750 MG/150 IV (10:02)
[2019-06-05] MEDS ORDERED: ACETAZOLAMIDE250 MG PO (10:02)
[2019-06-05 12:00] VITALS: BP 106/67
== END 2019-06-05 15:19 | DRG 870 ==
LOC: ED 14:25 → EDHOLD 15:43 → ICCU 15:43
PROVIDERS: Internal Medicine; Internal Medicine Critical Care Medicine; Physician Assistant; Student in an Organized Health Care Education/Training Program; ADMIT Internal Medicine
PROC: 5A1955Z Respiratory Ventilation, Greater than 96 Consecutive Hours (ICD-10-PCS; principal; 2019-05-28)
PROC: 0BH17EZ Insertion of Endotracheal Airway into Trachea, Via Natural or Artificial Opening (ICD-10-PCS; 2019-05-28)
PROC: 0BJ08ZZ Inspection of Tracheobronchial Tree, Via Natural or Artificial Opening Endoscopic (ICD-10-PCS; 2019-05-30)
PROC: 5A09357 Assistance with Respiratory Ventilation, Less than 24 Consecutive Hours, Continuous Positive Airway Pressure (ICD-10-PCS; 2019-06-03)
PROC: 5A09357 Assistance with Respiratory Ventilation, Less than 24 Consecutive Hours, Continuous Positive Airway Pressure (ICD-10-PCS; 2019-06-04)
PROC: 5A09357 Assistance with Respiratory Ventilation, Less than 24 Consecutive Hours, Continuous Positive Airway Pressure (ICD-10-PCS; 2019-06-05)
DX: A41.9 Sepsis, unspecified organism (principal); I50.33 Acute on chronic diastolic (congestive) heart failure; J96.21 Acute and chronic respiratory failure with hypoxia; J96.22 Acute and chronic respiratory failure with hypercapnia; J18.1 Lobar pneumonia, unspecified organism; E87.2 Acidosis; E44.0 Moderate protein-calorie malnutrition; J44.1 Chronic obstructive pulmonary disease with (acute) exacerbation; J44.0 Chronic obstructive pulmonary disease with (acute) lower respiratory infection; E87.3 Alkalosis; J98.11 Atelectasis; Z68.44 Body mass index [BMI] 60.0-69.9, adult; I87.2 Venous insufficiency (chronic) (peripheral); I11.0 Hypertensive heart disease with heart failure; E78.00 Pure hypercholesterolemia, unspecified; E66.01 Morbid (severe) obesity due to excess calories; G47.33 Obstructive sleep apnea (adult) (pediatric); R65.20 Severe sepsis without septic shock; E11.65 Type 2 diabetes mellitus with hyperglycemia; D64.9 Anemia, unspecified; E53.8 Deficiency of other specified B group vitamins; E55.9 Vitamin D deficiency, unspecified; E78.5 Hyperlipidemia, unspecified; I25.10 Atherosclerotic heart disease of native coronary artery without angina pectoris; T38.0X5A Adverse effect of glucocorticoids and synthetic analogues, initial encounter; E11.40 Type 2 diabetes mellitus with diabetic neuropathy, unspecified; I48.0 Paroxysmal atrial fibrillation; F10.10 Alcohol abuse, uncomplicated; T50.2X5A Adverse effect of carbonic-anhydrase inhibitors, benzothiadiazides and other diuretics, initial encounter; Z82.49 Family history of ischemic heart disease and other diseases of the circulatory system; Z83.3 Family history of diabetes mellitus; Z80.8 Family history of malignant neoplasm of other organs or systems; Z79.4 Long term (current) use of insulin; Z99.81 Dependence on supplemental oxygen; Z90.89 Acquired absence of other organs; Z90.49 Acquired absence of other specified parts of digestive tract; Z95.2 Presence of prosthetic heart valve; Z87.891 Personal history of nicotine dependence; Z80.0 Family history of malignant neoplasm of digestive organs; Z84.89 Family history of other specified conditions; Z79.899 Other long term (current) drug therapy; Z79.82 Long term (current) use of aspirin; Y92.89 Other specified places as the place of occurrence of the external cause

== ENCOUNTER 2019-07-02 12:42 | Inpatient (IN) | payer MEDICARE, MEDICAID ==
[~2019-07-02] VITALS: Ht 177.8 cm; Wt 192.5 kg
--- NOTE | ~2019-07-02 | PR ---
[place], [place] PROGRESS NOTE NAME: RUTHIE MONTELONGO SR [facility] #: [id number] UNIT #: [id number] ROOM: 506 DOCTOR: ELEANOR GARZA MD,JANA BIRTHDATE: [birth year] DOS: 07/09/2019 SUBJECTIVE: The patient was noted comfortable at this time, resting in the bed, has been using the BiPAP this morning. Continue with diuresis. No symptoms of chest pain. OBJECTIVE: VITAL SIGNS: Normal temperature, respiratory rate 18, heart rate 90, blood pressure 140/70. Pulse oxygen saturation noted 6 L nasal cannula, 98% saturation. HEENT: Showed no new change. NECK: Supple. CARDIOVASCULAR: S1, S2 audible. LUNGS: Noted without any wheezing or crackles. ABDOMEN: Soft, obese, nontender. EXTREMITIES: Progressive resolution of edema of the extremities. IMPRESSION: 1. The patient with gradual resolution of acute exacerbation of chronic obstructive pulmonary disease, [id number], hypercapnic hypoxic respiratory failure and congestive heart failure. 2. Obstructive sleep apnea disorder. PLAN OF MANAGEMENT: No changes in the plan of care at this time. Continue the patient's current therapy at this time as in progress with other treatment. Usual care. Supportive plan of management. JANA WEBSTER MD CM:PNTRANS [id number] JANA GARZA MD 07/09/19 1356 interface
--- NOTE | ~2019-07-02 | PR ---
[place], [place] PROGRESS NOTE NAME: RUTHIE MONTELONGO SR [facility] #: [id number] UNIT #: [id number] ROOM: 506 DOCTOR: ELEANOR GARZA MD,JANA BIRTHDATE: [birth year] DOS: 07/05/2019 SUBJECTIVE: He has been noted comfortable at this time, sitting on the side of the bed, reported reduction in respiratory symptom gradually and slowly. Still complaining of some possible obstruction in the neck area. Denies symptoms of headache or diplopia. Denies symptoms of hematemesis, melena, or edema of the extremities was improving. Using the BiPAP as ordered. Oxygen supplementation, continue other time. The patient stated that in the past after the surgery, he required prolonged mechanical ventilation with tracheostomy, which has been noted quite difficult to place in thinking that might be causing some narrowing of the trachea. He was requesting a bronchoscopy done. OBJECTIVE: VITAL SIGNS: Recorded shows normal temperature, respiratory rate ____ noted normal. GENERAL: The patient is currently sitting side of the bed, using oxygen supplement nasal cannula. VITAL SIGNS: Normal temperature, respiratory rate of 18, heart rate of 102. Blood pressure was recorded 135/63. Pulse oxygen saturation on 4 liters nasal cannula 92% with the BiPAP 100% saturation on 45% oxygen. HEENT: Examination shows no new change. NECK: Supple. CARDIOVASCULAR: S1, S2 is audible. LUNGS: The patient noted decreased breath sounds, mild to moderate expiratory wheezing. ABDOMEN: Soft and obese. EXTREMITIES: Resolving edema, chronic changes. MUSCULOSKELETAL: Without acute deformities. CENTRAL NERVOUS SYSTEM: In general intact. LABORATORY DATA: CMP today, glucose ____, BUN 26, creatinine was normal. Albumin 2.9. Urine culture, no bacterial growth from 07/04/2019. Blood culture, no bacterial growth from 07/03/2019. Vancomycin trough level 25.6 mildly above the therapeutic level. IMPRESSION: 1. The patient will be currently noted at this time with gradual resolution of the acute on chronic hypercapnic hypoxemic respiratory failure. 2. The patient with acute exacerbation of chronic obstructive pulmonary disease. Reduced wheezing gradually symptom with moderate nonproductive cough. 3. Rule out tracheal stenosis. 4. Obstructive sleep apnea disorder. PLAN OF MANAGEMENT: Diagnostic bronchoscopy could be therapeutic as well because of recurrent cough, remove the mucus impaction major airway for tomorrow. Risk and benefits of procedure has been discussed. The patient was agreeable for the procedure. N.p.o. past midnight status has been obtained. [place], [place] PROGRESS NOTE NAME: RUTHIE MONTELONGO SR UNIT #: [id number] ROOM: [facility] DOCTOR: JANA ALBERTO MD BIRTHDATE: [birth year] JANA WEBSTER MD CM:PNTRANS [phone] JANA GARZA MD 07/05/191929 interface
--- NOTE | ~2019-07-02 | EKG ---
[place], [place] ELECTROCARDIOGRAM REPORT NAME: RUTHIE MONTELONGO SR UNIT #: [id number] ROOM: 506 DOCTOR: BRAYAN DRAFT REPORT BIRTHDATE: [birth year] [facility] Test Date: 2019-07-05 Test Time: 14:23:14 Pat Name: RUTHIE MONTELONGO Department: Room: 506 2 Gender: M Data Modeling Specialist: Lucius Dave : 1965 Requested By: JANA GARZA Order Number: [id number] Reading MD: Jana Juárez MD Measurements Intervals [place] Rate: 90 P: 58 [place]: 172 QRS: 100 QRSD: 121 T: 44 QT: 390 QTc: 478 Interpretive Statements Sinus rhythm Nonspecific intraventricular conduction delay Compared to ECG 05/28/2019 20:19:52 No significant changes Electronically Signed On 07-11-2019 11:26:37 PDT by Jana Juárez MD CM:EKGRPT:ELECTROCARDIOGRAM REPORT [id number] JANA GARZA MD EPIPHANY DRAFT REPORT JANA GARZA MD
--- NOTE | ~2019-07-02 | EKG ---
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: Jennifer Murillo : 1965 Requested By: GODWIN ROMERO Order Number: [id number] Reading MD: Marky Juárez MD Measurements Intervals [place] Rate: 98 P: 69 [place]: 200 QRS: 119 QRSD: 119 T: 12 QT: 377 QTc: 482 Interpretive Statements Sinus rhythm Borderline prolonged [place] interval Probable left atrial enlargement Nonspecific intraventricular conduction delay Consider inferior infarct Minimal ST depression Compared to ECG 05/28/2019 20:19:52 Myocardial infarct finding now present ST (T wave) deviation now present Electronically Signed On 07-05-2019 12:36:24 PDT by Marky Juárez MD CM:EKGRPT:ELECTROCARDIOGRAM REPORT [id number] GODWIN SCHMIDT DRAFT REPORT GODWIN ROMERO M.D.
--- NOTE | ~2019-07-02 | EKG ---
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: : 1965 Requested By: GODWIN ROMERO Order Number: [id number] Reading MD: Marky Juárez MD Measurements Intervals [place] Rate: 104 P: 41 IL: 197 QRS: 95 QRSD: 119 T: 10 QT: 369 QTc: 486 Interpretive Statements Sinus tachycardia Borderline prolonged IL interval Probable left atrial enlargement Nonspecific intraventricular conduction delay Low voltage, precordial leads Minimal ST depression Compared to ECG 05/28/2019 20:19:52 Low QRS voltage now present ST (T wave) deviation now present Sinus rhythm no longer present Electronically Signed On 07-05-2019 12:36:21 PDT by Marky Juárez MD CM:EKGRPT:ELECTROCARDIOGRAM REPORT [id number] GODWIN SCHMIDT DRAFT REPORT GODWIN ROMERO M.D.
--- NOTE | ~2019-07-02 | PR ---
[place], [place] PROGRESS NOTE NAME: [facility] SR [id number] UNIT #: [id number] ROOM: 506 DOCTOR: ELEANOR GARZA MD,JANA BIRTHDATE: [birth year] DOS: 07/10/2019 SUBJECTIVE: The patient was noted comfortable at this time, resting in the bed this morning of assessment. There were no symptoms of fever or chills. Denies symptoms of hemoptysis. Edema of the lower extremity continues to resolve. OBJECTIVE: VITAL SIGNS: Normal temperature, respiratory rate 20, heart rate of 88, blood pressure 143/71. Pulse oxygen saturation recorded on 6 liters nasal canula 98% with BiPAP 100% saturation. HEENT: Examination shows head was atraumatic. Eyes nonicterus. NECK: Supple. CARDIOVASCULAR: S1, S2 is audible. LUNGS: Decreased breath sounds in the lungs. No wheeze or crackles. ABDOMEN: Soft, nontender. Bowel sounds are present. EXTREMITIES: Resolving edema, chronic changes as well. LABORATORY DATA: The chest x-ray done this morning does not show any acute pulmonary infiltration, finding of congestive heart failure. IMPRESSION: 1. The patient who has been currently noted with chronic obesity as well, resolving acute on chronic hypercapnic and hypoxic respiratory failure as well. 2. The patient with morbid obesity as well. PLAN OF MANAGEMENT: No changes in the plan of care at this time. Discharge planning from primary care physician is pending for transfer to senior care facility whenever felt appropriate. JANA WEBSTER MD CM:PNTRANS [id number] [id number] JANA GARZA MD 07/10/19 1415 interface
--- NOTE | ~2019-07-02 | PR ---
[place], [place] PROGRESS NOTE NAME: RUTHIE MONTELONGO SR [facility] #: [id number] UNIT #: [id number] ROOM: 506 DOCTOR: NICOLASA CHENG DPM BIRTHDATE: [birth year] DOS: 07/08/2019 SUBJECTIVE: The patient was seen for followup of edema, venous insufficiency, bilateral lower leg. The patient feels much improved with the compression hose. OBJECTIVE FINDINGS: Edema, venous insufficiency still noted in bilateral lower leg, but stable and improved with the compression hose. Negative Homans sign. No signs of DVT. No signs of ulceration. ASSESSMENT: Venous insufficiency, venous stasis with edema bilateral lower extremity. PLAN: Evaluation and management. Continue compression hose and reappoint for followup. NICOLASA CHENG DPM CM:GM [id number] NICOLASA CHENG DPM 07/09/19 0334 interface
--- NOTE | ~2019-07-02 | PR ---
[place], [place] PROGRESS NOTE NAME: [facility]GO SR [id number] UNIT #: [id number] ROOM: 506 DOCTOR: ELEANOR GARZA MD,JANA BIRTHDATE: [birth year] DOS: 07/04/2019 PULMONARY PROGRESS NOTE SUBJECTIVE: The patient noted comfortable at this time, resting in the bed, sitting side of bed, has reported reduction in symptoms of shortness of breath and wheezing. Cough is noted mild to moderate with scant amount of sputum expectoration and abdominal pain. The patient denies any pain of the lower extremity. Denies symptoms of headache or diplopia. Using the BiPAP as ordered with previous setting as well. The patient has a noninvasive ventilator for home, which has been currently ____ in the room, but will not be used until his overall improvement in the severe acute hypercapnic hypoxic respiratory failure occurs. Remaining systems reviewed were noted all negative. OBJECTIVE: VITAL SIGNS: For the patient normal temperature, respiratory rate 18, heart rate 74, blood pressure at midnight was 98/50 recorded by the nursing staff. Pulse oxygen saturation 45% with BiPAP, 97% saturation with nasal canula as 98% saturation. HEENT: Examination shows head was atraumatic. Eyes nonicterus. NECK: Supple. CARDIOVASCULAR: S1, S2 audible. LUNGS: The patient was noted with moderate expiratory wheezing, partial reduction from previous examinations. ABDOMEN: Noted severe morbidly obese. Bowel sounds present. EXTREMITIES: Chronic changes. MUSCULOSKELETAL: Without acute deformities. CENTRAL NERVOUS SYSTEM: Noted intact. IMPRESSION: 1. The patient who has been currently noted with respiratory insufficiency with chronic hypercapnic hypoxemic respiratory failure. 2. Acute exacerbation of chronic obstructive pulmonary disease, recurrent. 3. The patient with acute congestive heart failure, preserved ejection fraction. 4. Resolving metabolic alkalosis. 5. Severe morbid obesity with obstructive sleep apnea disorder and other medical illnesses. PLAN OF MANAGEMENT: Continuation of current plan of care at this time. The patient responded to treatment. Continue BiPAP settings / as well. Bronchodilators to be continued. Oxygen supplementation will be continued. Solu-Medrol dose possibly will be decreased tomorrow morning to 40 mg daily dosing, if wheezing continued to resolve and improve. Usual care. ADDENDUM One of the blood culture, which has been taken for the patient in the Emergency Room noted gram-positive cocci in pairs and the other set was noted no bacterial growth. The patient has been ordered new sets of blood culture, started on intravenous vancomycin. Urine culture was ordered as well. Other possible [place], [place] PROGRESS NOTE NAME: RUTHIE MONTELONGO SR UNIT #: [id number] ROOM: [facility] DOCTOR: JANA ALBERTO MD BIRTHDATE: [birth year] consideration would be considered for a streptococcal species and Enterococcus. JANA WEBSTER MD CM:PNMARK [id number] JANA GARZA MD 07/05/19 0016 interface
--- NOTE | ~2019-07-02 | EKG ---
[place], [place] ELECTROCARDIOGRAM REPORT NAME: RUTHIE MONTELONGO SR UNIT #: [id number] ROOM: 506 DOCTOR: BRAYAN DRAFT REPORT BIRTHDATE: [birth year] [facility] Test Date: 2019-07-02 Test Time: 15:29:01 Pat Name: RUTHIE MONTELONGO Department: Room: 506 Gender: M Ventilation Equipment Tender: : 1965 Requested By: GODWIN ROMERO Order Number: [id number] Reading MD: Marky Juárez MD Measurements Intervals [place] Rate: 92 P: 12 [place]: 196 QRS: 102 QRSD: 120 T: 33 QT: 398 QTc: 493 Interpretive Statements Sinus rhythm Probable left atrial enlargement Nonspecific intraventricular conduction delay Compared to ECG 05/28/2019 20:19:52 No significant changes Electronically Signed On 07-05-2019 12:36:22 PDT by Marky Juárez MD CM:EKGRPT:ELECTROCARDIOGRAM REPORT [id number] 1236 GODWIN SCHMIDT DRAFT REPORT GODWIN ROMERO M.D.
--- NOTE | ~2019-07-02 | PR ---
[place], [place] PROGRESS NOTE NAME: RUTHIE MONTELONGO SR UNIT #: [id number] ROOM: 506 DOCTOR: JANA ALBERTO MD BIRTHDATE: [birth year] DOS: 07/06/2019 PULMONARY PROGRESS NOTE SUBJECTIVE: The patient noted comfortable at this time, resting in the bed this morning of assessment. He is n.p.o., ____ bronchoscopy. Coughing and wheezing has been reported intermittently. There was no worsening or change in urine noted less in the last 24 hours. Denies any pain of the lower extremity. Edema in lower extremity continued to resolve. Using the BiPAP as ordered and the oxygen supplementation intermittently. Denies symptoms of headache, diplopia, nausea, vomiting or diarrhea. Remaining systems were reviewed and negative. OBJECTIVE: VITAL SIGNS: For the patient normal temperature, respiratory rate of 16, heart rate of 91, blood pressure ____. Pulse oxygen saturation on 3 liters nasal cannula was 93% saturation. Previously on 6 L nasal cannula 97% saturation, BiPAP 97% saturation. HEENT: Chronic severe obesity. Head was atraumatic. Eyes nonicterus. NECK: Supple. CARDIOVASCULAR: S1, S2 audible. LUNGS: Decreased breath sounds, expiratory wheezing, no crackles. ABDOMEN: Soft and obese. EXTREMITIES: No new changes. Resolving edema. SKIN: Chronic changes. CENTRAL NERVOUS SYSTEM: Noted intact. MUSCULOSKELETAL: Without acute deformities. IMPRESSION: The patient who has been currently noted with resolving [id number] hypercapnia hypoxic respiratory failure and acute exacerbation of chronic obstructive pulmonary disease with symptoms of wheezing and nonproductive cough. Rule out tracheal stenosis. PLAN OF MANAGEMENT: No changes in the plan of management majorly will be necessary. Management for changes will be made if necessary after bronchoscopy that will be done today. Continue the BiPAP, oxygen, bronchodilators and steroids. [place], [place] PROGRESS NOTE NAME: RUTHIE MONTELONGO SR UNIT #: [id number] ROOM: 506 DOCTOR: JANA ALBERTO MD BIRTHDATE: [birth year] JANA WEBSTER MD CM:PNTRANS [id number] [id number] JANA GARZA MD 07/06/19 1543 interface
--- NOTE | ~2019-07-02 | CON ---
[place], [place] REPORT OF CONSULTATION NAME: RUTHIE MONTELONGO SR [facility] #: [id number] UNIT #: [id number] ROOM: 506 DOCTOR: JANA ALBERTO MD BIRTHDATE: [birth year] DOS: 07/03/2019 PULMONARY CONSULTATION EVALUATION AND MANAGEMENT NOTE CONSULTATION REQUESTED BY: Hospitalist services. REASON FOR CONSULTATION: Assessed the patient for respiratory failure, exacerbation of chronic obstructive pulmonary disease and other problem. HISTORY OF PRESENT ILLNESS: A 54-year-old white male patient who has been noted with multiple medical problems including hypercapnic respiratory failure, hypoxemic respiratory failure with bronchial asthma, COPD with congestive heart failure and other illnesses. The patient has been admitted to the hospital requiring mechanical ventilation last time for severe acute on chronic hypercapnic hypoxemic respiratory failure with congestive heart failure as well as acute pneumonia. The patient has been treated in this hospital and then subsequently discharged to the long-term acute care facility. The patient stated he stayed in the long-term care facility about a week and then discharged home. He was discharged from this hospital on 06/05/2019. The patient stated that he has been experiencing increase in the respiratory symptom for the past several days. The symptoms of coughing, wheezing was also reported tightness in the chest. He was also complaining of edema, which has been noted progressively in the lower extremities. Denies symptoms of chest pain or hemoptysis. The patient is using all the prescription medication, which has been ordered upon discharge. Symptoms were not resolving. The patient has been assessed on this hospitalization in the Emergency Room and hospitalized on 07/02/2019. The patient was started on the bilevel pressure yesterday, medical management, and hypercapnic respiratory failure as well. REVIEW OF SYSTEMS: CONSTITUTIONAL: Fatigue and tiredness reported without any symptoms of fever or chills. EYES: Denies any burning, redness, or tenderness. EARS, NOSE, THROAT, EAR, NOSE, THROAT SYMPTOMS: No sore throat, hoarseness, otalgia, postnasal drainage or epistaxis. CARDIOVASCULAR: Noted edema of the lower extremity. Denies symptoms of palpitation. Denies angina pain. GASTROINTESTINAL: No dysphagia, nausea, vomiting, diarrhea, abdominal pain, hematemesis, melena, or hematochezia. SKIN: Denies abnormal lesions or rashes. CENTRAL NERVOUS SYSTEM: The patient denies dizziness, headache, diplopia, syncopal episodes. Remaining systems were reviewed. They were noted all negative. PAST MEDICAL HISTORY: Known with history of: 1. End-stage chronic obstructive pulmonary disease. 2. Chronic hypercapnic respiratory failure. 3. Chronic hypoxic respiratory failure, need oxygen, 6 liters nasal cannula. 4. Obstructive sleep apnea disorder. [place], [place] REPORT OF CONSULTATION NAME: RUTHIE MONTELONGO SR UNIT #: [id number] ROOM: [facility] DOCTOR: JANA ALBERTO MD BIRTHDATE: [birth year] 5. Congestive heart failure with preserved ejection fraction. 6. Nicotine dependence history. 7. Uncomplicated severe persistent bronchial asthma and acute permanent atrial fibrillation. 8. Severe morbid obesity. 9. Intervertebral disk disease. PAST SURGICAL HISTORY: 1. Tonsillectomy. 2. Coronary artery disease. 3. Intubation and mechanical ventilation on his admission in 05/2019. 4. Fiberoptic bronchoscopy done in 05/2019. SOCIAL HISTORY: The patient is , lives at home. Denies any alcohol or illicit drug use. He has 3 children. Tobacco use noted from age [age] years old, 4 pack of cigarettes per day. At this time, the patient stated that he has not been smoking any cigarettes. FAMILY HISTORY: The patient reported for complication, cancer of the throat. The mother with unknown malignancy. CURRENT MEDICATIONS: Has been administered in this hospitalization were noted as Cardizem-CD, folic acid, loratadine, aspirin, potassium chloride, amiodarone, Diamox 500 mg p.o. daily, Protonix, Lipitor, gabapentin, amitriptyline, Eliquis, Mucinex, Solu-Medrol 40 mg b.i.d., DuoNeb q.4 hours, Lasix 40 mg IV daily, IV Rocephin, and some other p.r.n. meds. DRUG ALLERGIES: Noted as no known drug allergies. PHYSICAL EXAMINATION: GENERAL: This is a 54-year-old male patient currently sitting on the side of bed without any acute distress. Height of 5 feet 10 inches, weight of 422 pounds, BMI 60.5. VITAL SIGNS: The patient has normal temperature, respiratory rate 20-18, heart rate of 88-111 noted yesterday on admission. The blood pressure ranging between 127/63-106/64. Intake recorded as 130/1700 mL, on 1.270 liters. Pulse ox saturation on 45% oxygen, BiPAP was 96% saturation with 6 liter nasal cannula, 91% saturation. HEENT: Examination shows head was atraumatic. Eyes nonicterus. NECK: Supple. Severe decreased posterior pharyngeal space, high tongue base guarding of soft tissue structures. CARDIOVASCULAR: S1, S2 audible. LUNGS: Noted decreased breath sounds with diffuse expiratory wheezing bilaterally. ABDOMEN: Soft with severe morbid obesity. Bowel sounds present. EXTREMITIES: Noted with edema of lower extremities. VISIBLE SKIN: No lesions or rashes. CENTRAL NERVOUS SYSTEM: Cranial nerves 2-12 intact. LABORATORY DATA: The patient's PT/PTT were noted normal yesterday. CMP on [place], [place] REPORT OF CONSULTATION NAME: RUTHIE MONTELONGO SR UNIT #: [id number] ROOM: [facility] DOCTOR: JALEESA ALBERTO MDM BIRTHDATE: [birth year] yesterday, normal BUN and creatinine. CO2 was 35. CBC that was done on 07/02/2019, the patient's WBC count 13.3, hemoglobin 11, platelet count was normal. Arterial blood gas that was done yesterday, pH of 7.26, pCO2 of 76/66.9. Arterial blood gas yesterday upon the BiPAP use, setting of 20/10, pH of 7.26, pCO2 of 72, pO2 103. CBC that was done this morning: WBC count normal, hemoglobin 9.9, platelet count was normal. CMP: Glucose 189, BUN normal, creatinine was normal. CO2 was 33. PT/PTT this morning normal. Arterial blood gas that I obtained 45% with BiPAP setting of 24/10, pH of 7.35, pCO2 of 58, pO2 of 77.9. The chest x-ray that was done 1 view with limited view because of large body habitus was noted interstitial edema cannot be excluded with small pleural effusions with saundra fluid was noted, larger on the right than the left side. Basilar area of atelectasis, no acute infiltration. The troponin cycled as normal results. IMPRESSION: 1. The patient will be currently admitted to the hospital with respiratory insufficiency with evidence of a chronic hypercapnic and hypoxemic respiratory failure, result of acute exacerbation of chronic obstructive pulmonary disease and bronchial asthma combination, acute congestive heart failure, preserved ejection fraction. 2. Metabolic alkalosis at the present time was also noted, control has been given Diamox. 3. Severe morbid obesity with obstructive sleep apnea disorder as well. 4. Severe overall debility of the patient noted multiple other medical illnesses. PLAN OF MANAGEMENT: Continue the BiPAP at the current setting as ordered. Continue Solu-Medrol and bronchodilators. Discontinue the Diamox on monitoring of the bicarbonate level to make any changes after that as necessary. Physical therapy should be obtained. [facility] facility consultation on discharge should be strongly considered. Titrate oxygen supplementation, maintain pulse ox 92% or greater. At this time, the patient does not have any evidence of acute infection. The patient's antibiotics will be discontinued. Other therapy, plan of management. Additional treatment changes will be made based on progression of his illness. Supportive care, other therapy, plan of management and treatments. Usual medical management. DVT prophylaxis, the patient will be continued in the form Eliquis, which was given chronic atrial fibrillation management. Thanks for allowing me to participate in the care of this patient. [place], [place] REPORT OF CONSULTATION NAME: RUTHIE MONTELONGO SR UNIT #: [id number] ROOM: 506 DOCTOR: JANA ALBERTO MD BIRTHDATE: [birth year] JANA WEBSTER MD CM:CONSTR:REPORT OF CONSULTATION 1506 07/03/19 1646 interface
--- NOTE | ~2019-07-02 | PR ---
[place], [place] PROGRESS NOTE NAME: RUTHIE MONTELONGO SR [facility] #: [id number] UNIT #: [id number] ROOM: 506 DOCTOR: ELEANOR GARZA MD,JANA BIRTHDATE: [birth year] DOS: 07/08/2019 SUBJECTIVE: He has been noted comfortable at this time, sitting on side of the bed, using his BiPAP, noted without any acute distress. The edema in lower extremities has improved. Coughing has improved significantly. There were no symptoms of chest pain, fever or chills stated by the patient. PHYSICAL EXAMINATION: GENERAL: The patient has been noted comfortable at this time, resting in the bed this morning. VITAL SIGNS: For the patient, which has been recorded shows a normal temperature, respiratory rate of 20, heart rate 77, blood pressure 117/54-127/82. ____ liters noted. The pulse oxygen saturation with BiPAP 45%, 97-100% saturation recorded. HEENT: Examination shows head was atraumatic. Eyes nonicterus. NECK: Supple. CARDIOVASCULAR: S1, S2 audible. LUNGS: Without any wheeze or crackles. ABDOMEN: Soft, nontender. IMPRESSION: Resolving acute on chronic hypercapnia hypoxic respiratory failure, improving acute exacerbation of chronic obstructive pulmonary disease, mild tracheal stenosis of not clinical significance. The cultures of the bronchial washing from ____ no bacterial growth. PLAN OF TREATMENT: Continue current plan of management with diuretic, bronchodilators, BiPAP and other treatment as in progress. JANA WEBSTER MD CM:PNTRANS 1259 1549 JANA GARZA MD 07/08/19 1549 interface
--- NOTE | ~2019-07-02 | PROC NOTE ---
[place], [place] PROCEDURE NOTE NAME: RUTHIE MONTELONGO SR UNIT #: [id number] ROOM: 506 DOCTOR: ELEANOR GARZA MD,JANA BIRTHDATE: [birth year] DOS: 07/06/2019 PREOPERATIVE DIAGNOSES: Rule out tracheal stenosis with ongoing cough and wheezing with acute exacerbation of chronic obstructive pulmonary disease. POSTOPERATIVE DIAGNOSES: 1. Minimal insignificant tracheal stenosis noted of not physiologic significance. 2. Evidence of mucus impaction major airways were noted mainly in the right endobronchial tree. COMPLICATIONS: None. DESCRIPTION OF PROCEDURE: Procedure was done under local MAC. The patient was placed in a semi supine position. Conscious sedation administered by the Anesthesia Department. After that patient's airway introduced into the mouth. Bronchoscope advanced to airway into laryngeal area. Epiglottis and vocal cord seen. Vocal cords moving symmetrically with movements. Large amount of redundant tissue noted in the pharynx because of recurrent morbid obesity with fat deposition. Bronchoscope advanced vocal cord and tracheal lumen. A very small amount of subglottic tracheal stenosis noted of not clinical significance. Bronchoscope easily passed through to the distal portion of trachea shows moderate amount thick mucus secretion, mucus impaction noted in the right upper, middle, lower lobe bronchi, which were suctioned out. Bronchial washing was also collected in the left upper lingula and lower lobe without any difficulty. Postoperative findings were discussed with the patient later once the patient recovered the effects of acute sedation. Cultures for all the bronchial washing sent. No change in treatment will be necessary. JANA WEBSTER MD CM:PROCNOTE:PROCEDURE NOTE [id number] 1553 JANA GARZA MD
--- NOTE | ~2019-07-02 | PR ---
[place], [place] PROGRESS NOTE NAME: RUTHIE MONTELONGO SR [facility] #: [id number] UNIT #: [id number] ROOM: 506 DOCTOR: NICOLASA CHENG DPM BIRTHDATE: [birth year] DOS: 07/05/2019 SUBJECTIVE: The patient was seen for followup of cellulitis, edema, venous insufficiency, bilateral lower legs. OBJECTIVE FINDINGS: There is edema, venous insufficiency, venous stasis, bilateral lower leg. Decreased erythema. No signs of ulceration. ASSESSMENT: Edema, venous insufficiency, venous stasis, bilateral lower legs. PLAN: Evaluation and management. We will continue to monitor for changes and recheck the patient tomorrow. NICOLASA CHENG DPM CM:GM 1040 1244 NICOLASA CHENG DPM 07/05/19 1241 interface
--- NOTE | ~2019-07-02 | PR ---
[place], [place] PROGRESS NOTE NAME: RUTHIE MONTELONGO SR UNIT #: [id number] ROOM: 506 DOCTOR: JANA ALBERTO MD BIRTHDATE: [birth year] DOS: 07/07/2019 PULMONARY PROGRESS NOTE SUBJECTIVE: The patient noted comfortable at this time, resting, sitting on side of the bed, used the BiPAP last night, using oxygen supplement nasal cannula. Bronchoscopy was completed yesterday for the patient as well. There were no symptoms of chest pain or fever reported. OBJECTIVE: VITAL SIGNS: Normal temperature, respiratory rate 18, heart rate 84, blood pressure 134/68, pulse ox saturation on 4 liters nasal cannula 98% saturation recorded. HEENT: Examination shows chronic severe obesity. Head was atraumatic. Eyes nonicterus. NECK: Supple and obese. CARDIOVASCULAR SYSTEM: S1, S2 audible. LUNGS: Occasional wheezing, no crackles. ABDOMEN: Soft, nontender. Bowel sounds present. EXTREMITIES: Chronic obesity with edema, which was resolving. LABORATORY DATA: CBC this morning, WBC count 12.9, hemoglobin 10.7. BMP this morning, glucose 307, BUN and creatinine was normal. CO2 of 35. Culture of the bronchial washing noted normal krishan, final culture results were pending. IMPRESSION: 1. Resolving acute on chronic respiratory failure with improving acute on chronic metabolic alkalosis. 2. Chronic obesity. 3. Improving acute exacerbation of chronic obstructive pulmonary disease, status post bronchoscopy. Mild tracheal stenosis from past tracheostomy of no clinical significance. PLAN OF MANAGEMENT: Continue current plan of management where other therapy as ongoing. Discharge planning could be started for placement in prison facility prior to home discharge. [place], [place] PROGRESS NOTE NAME: RUTHIE MONTELONGO SR UNIT #: [id number] ROOM: 506 DOCTOR: JANA ALBERTO MD BIRTHDATE: [birth year] JANA WEBSTER MD CM:PNTRANS [id number] JANA GARZA MD 07/08/19 0057 interface
[~2019-07-02 12:42] MED LIST changes: +ACETAZOLAMIDE250 MG PO; -COMPETE1 EACH PO; +FUROSEMIDE10 MG/1 M1 IV; +LEVOFLOXAC750 MG/150 IV; +MUCINEX DM 30/61 TAB PO; -POTASSIUM CHLO20 ME3 PO; +TAB-A-VITE1 EACH PO
[2019-07-02 12:53] VITALS: BP 148/65
[2019-07-02 12:59] LABS: HEMATOCRIT 40.8 % (42.0-52.0); HEMOGLOBIN 11.1 g/dl (14.0-18.0); MEAN CELL VOLUME 89.1 fl (80.0-94.0); MEAN CORPUSCULAR HGB 24.2 pg (27.0-31.0); MEAN CORPUSCULAR HGB CONC 27.2 g/dl (33.0-37.0); MEAN PLATELET VOLUME 9.2 fl (9.6-12.3); PLATELET COUNT AUTOMATED 289 10*3/uL (130-400); RED BLOOD COUNT 4.58 10*6/uL (4.50-5.90); RED CELL DISTRI WIDTH 16.9 % (0-14.5); WHITE BLOOD COUNT 13.3 10*3/uL (4.8-10.8)
[2019-07-02 13:11] LABS: ACT PARTIAL THROMBO TIME 30.8 SECONDS (20.0-32.1)
[2019-07-02 13:14] LABS: ALBUMIN 3.4 gm/dl (3.1-4.5); ALKALINE PHOSPHATASE 123 U/L (45-117); BUN 14 mg/dl (7-24); CHLORIDE 100 mmol/L (98-107); CREATININE 0.94 mg/dL (0.70-1.30); POTASSIUM 3.7 mmol/L (3.5-5.1); SGOT/AST 11 IU/L (3-35); SGPT/ALT 15 U/L (12-78); SODIUM 139 mmol/L (136-145); TOTAL PROTEIN 7.7 gm/dL (6.4-8.2)
[2019-07-02 13:17] LABS: TROPONIN I < 0.015 ng/ml (<0.045)
[2019-07-02 13:19] LABS: BASOPHILS 2 % (0-1); TOTAL CELLS COUNTED 100 #CELLS
[2019-07-02 13:21] LABS: PLATELET SUFFICIENCY NORMAL (NORMAL)
[2019-07-02 14:45] VITALS: BP 134/72
[2019-07-02 14:45] LABS: ABG BASE EXCESS 4.9 mmol/L (-2.0-2.0); ABG HCO3 33.5 mmol/l (22-26); ABG O2 SATURATION 92.8 % (95-97); ARTERIAL BLOOD GAS PH 7.262 (7.35-7.45); ARTERIAL BLOOD GAS PO2 66.9 mmHg (80-90)
[2019-07-02 14:50] LABS: ARTERIAL BLOOD GAS PCO2 76.3 mmHg (35-45)
[2019-07-02 17:12] VITALS: BP 139/80
[2019-07-02 18:00] VITALS: BP 145/84
[2019-07-02] MEDS ORDERED: LASIX40 MG PO (18:03)
[2019-07-02] MEDS ORDERED: OMEPRAZOLE20 M3 PO (18:05)
[2019-07-02] MEDS ORDERED: NATURE'S BLEND F1 MG PO (18:07)
[2019-07-02] MEDS ORDERED: DILTIAZEM 24HR360 MG PO (18:09)
[2019-07-02] MEDS ORDERED: ACETAZOLAMIDE500 M4 PO (18:12)
[2019-07-02] MEDS ORDERED: VITAMIN D31000 UNI1 PO (18:14)
[2019-07-02] MEDS ORDERED: VIAGRA100 MG PO (18:17)
[2019-07-02] MEDS ORDERED: VITAMIN B-12100 MCG PO (18:31)
[2019-07-02] MEDS ORDERED: LIPITOR40 MG PO (18:35)
[2019-07-02] MEDS ORDERED: PANTOPRAZOLE SO40 MG PO (18:39)
[2019-07-02] MEDS ORDERED: SPIRIVA -- 3018 MCG INH (18:48)
[2019-07-02 18:57] LABS: ABG HCO3 32.1 mmol/l (22-26); ARTERIAL BLOOD GAS PH 7.269 (7.35-7.45)
[2019-07-02 19:00] LABS: ARTERIAL BLOOD GAS PCO2 72.1 mmHg (35-45)
[2019-07-02 19:01] LABS: ABG O2 SATURATION 99.1 % (95-97)
[2019-07-02 20:00] VITALS: BP 127/63
[2019-07-03] VITALS: BP 105/57
[2019-07-03 06:51] LABS: BASO % 0.2 % (0.0-1.0); HEMATOCRIT 36.2 % (42.0-52.0); HEMOGLOBIN 9.9 g/dl (14.0-18.0); LYMPH # 0.7 10*3/uL (1.3-4.4); LYMPH % 6.8 % (27.0-41.0); MEAN CORPUSCULAR HGB 23.8 pg (27.0-31.0); MEAN CORPUSCULAR HGB CONC 27.3 g/dl (33.0-37.0); MONO # 0.1 10*3/uL (0.1-1.0); MONO % 1.3 % (3.0-9.0); NEUT # 8.8 10*3/uL (2.3-7.9); NEUT % 89.1 % (47.0-73.0); NUCLEATED RED BLOOD CELL 0.2 % (0.0-0.0); PLATELET COUNT AUTOMATED 274 10*3/uL (130-400); RED BLOOD COUNT 4.16 10*6/uL (4.50-5.90); RED CELL DISTRI WIDTH 16.8 % (0-14.5); WHITE BLOOD COUNT 9.9 10*3/uL (4.8-10.8)
[2019-07-03 07:17] LABS: ALBUMIN 2.9 gm/dl (3.1-4.5); ALKALINE PHOSPHATASE 109 U/L (45-117); BUN 13 mg/dl (7-24); CHLORIDE 100 mmol/L (98-107); CREATININE 0.91 mg/dL (0.70-1.30); PHOSPHOROUS 2.7 mg/dL (2.5-4.9); POTASSIUM 4.1 mmol/L (3.5-5.1); SGOT/AST 18 IU/L (3-35); SGPT/ALT 13 U/L (12-78); SODIUM 138 mmol/L (136-145); TOTAL PROTEIN 6.9 gm/dL (6.4-8.2)
[2019-07-03 07:27] LABS: ACT PARTIAL THROMBO TIME 28.8 SECONDS (20.0-32.1)
[2019-07-03 07:33] LABS: FREE T4 1.08 ng/dl (0.76-1.46)
[2019-07-03 08:30] LABS: ABG HCO3 32.4 mmol/l (22-26); ABG O2 SATURATION 97.4 % (95-97); ARTERIAL BLOOD GAS PCO2 58.8 mmHg (35-45); ARTERIAL BLOOD GAS PH 7.356 (7.35-7.45); ARTERIAL BLOOD GAS PO2 77.9 mmHg (80-90)
[2019-07-03 12:00] VITALS: BP 106/64
[2019-07-03 16:00] VITALS: BP 118/64
[2019-07-03 20:00] VITALS: BP 109/66
[2019-07-04] VITALS: BP 90/50
[2019-07-04 08:56] LABS: BASO % 0.1 % (0.0-1.0); EOS % 0.3 % (1.0-4.0); HEMATOCRIT 36.2 % (42.0-52.0); HEMOGLOBIN 9.8 g/dl (14.0-18.0); LYMPH # 1.1 10*3/uL (1.3-4.4); LYMPH % 8.6 % (27.0-41.0); MEAN CELL VOLUME 87.9 fl (80.0-94.0); MEAN CORPUSCULAR HGB 23.8 pg (27.0-31.0); MEAN CORPUSCULAR HGB CONC 27.1 g/dl (33.0-37.0); MEAN PLATELET VOLUME 10.1 fl (9.6-12.3); MONO # 0.7 10*3/uL (0.1-1.0); MONO % 5.8 % (3.0-9.0); NEUT # 10.5 10*3/uL (2.3-7.9); NEUT % 83.1 % (47.0-73.0); PLATELET COUNT AUTOMATED 292 10*3/uL (130-400); RED BLOOD COUNT 4.12 10*6/uL (4.50-5.90); RED CELL DISTRI WIDTH 16.5 % (0-14.5); WHITE BLOOD COUNT 12.6 10*3/uL (4.8-10.8)
[2019-07-04 09:11] LABS: ALBUMIN 3.1 gm/dl (3.1-4.5); ALKALINE PHOSPHATASE 97 U/L (45-117); CHLORIDE 100 mmol/L (98-107); CREATININE 1.05 mg/dL (0.70-1.30); SGOT/AST 10 IU/L (3-35); SGPT/ALT 13 U/L (12-78); SODIUM 138 mmol/L (136-145); TOTAL PROTEIN 6.9 gm/dL (6.4-8.2)
[2019-07-04 09:23] LABS: BUN 24 mg/dl (7-24)
[2019-07-04 12:00] VITALS: BP 133/76
[2019-07-04 16:00] VITALS: BP 127/69
[2019-07-04 20:00] VITALS: BP 128/62
[2019-07-05] VITALS: BP 111/50
[2019-07-05 06:43] LABS: ALBUMIN 2.9 gm/dl (3.1-4.5); BUN 26 mg/dl (7-24); CHLORIDE 101 mmol/L (98-107); CREATININE 0.97 mg/dL (0.70-1.30); POTASSIUM 4.1 mmol/L (3.5-5.1); SGOT/AST 11 IU/L (3-35); SGPT/ALT 14 U/L (12-78); SODIUM 138 mmol/L (136-145)
[2019-07-05 06:44] LABS: ALKALINE PHOSPHATASE 86 U/L (45-117); TOTAL PROTEIN 6.3 gm/dL (6.4-8.2)
[2019-07-05 08:00] VITALS: BP 132/80
[2019-07-05 12:00] VITALS: BP 135/63
[2019-07-05 14:30] LABS: ACT PARTIAL THROMBO TIME 28.5 SECONDS (20.0-32.1); INTERNATIONAL NORM RATIO 1.1 (2.0-3.5)
[2019-07-05 16:00] VITALS: BP 144/73
[2019-07-05 20:00] VITALS: BP 132/71
[2019-07-06] VITALS (7 sets, daily range): BP systolic 104–150; BP diastolic 33–96
[2019-07-06 06:31] LABS: HEMATOCRIT 38.2 % (42.0-52.0); HEMOGLOBIN 10.5 g/dl (14.0-18.0); MEAN CELL VOLUME 86.6 fl (80.0-94.0); MEAN CORPUSCULAR HGB 23.8 pg (27.0-31.0); MEAN CORPUSCULAR HGB CONC 27.5 g/dl (33.0-37.0); MEAN PLATELET VOLUME 10.6 fl (9.6-12.3); NUCLEATED RED BLOOD CELL 0.3 % (0.0-0.0); PLATELET COUNT AUTOMATED 301 10*3/uL (130-400); RED BLOOD COUNT 4.41 10*6/uL (4.50-5.90); RED CELL DISTRI WIDTH 16.6 % (0-14.5); WHITE BLOOD COUNT 13.2 10*3/uL (4.8-10.8)
[2019-07-06 07:10] LABS: OVALOCYTES FEW; ROULEAUX SLIGHT; SCHISTOCYTES FEW; TOTAL CELLS COUNTED 100 #CELLS
[2019-07-06 07:11] LABS: PLATELET SUFFICIENCY NORMAL (NORMAL); POLYCHROMASIA SLIGHT
[2019-07-07] VITALS: BP 140/74
[2019-07-07 07:04] LABS: HEMOGLOBIN 10.7 g/dl (14.0-18.0); MEAN CELL VOLUME 86.5 fl (80.0-94.0); MEAN CORPUSCULAR HGB 23.7 pg (27.0-31.0); MEAN CORPUSCULAR HGB CONC 27.4 g/dl (33.0-37.0); MEAN PLATELET VOLUME 10.3 fl (9.6-12.3); NUCLEATED RED BLOOD CELL 0.3 % (0.0-0.0); PLATELET COUNT AUTOMATED 296 10*3/uL (130-400); RED BLOOD COUNT 4.51 10*6/uL (4.50-5.90); RED CELL DISTRI WIDTH 16.4 % (0-14.5); WHITE BLOOD COUNT 12.9 10*3/uL (4.8-10.8)
[2019-07-07 07:33] LABS: BUN 24 mg/dl (7-24); CHLORIDE 99 mmol/L (98-107); CREATININE 1.01 mg/dL (0.70-1.30); POTASSIUM 4.1 mmol/L (3.5-5.1); SODIUM 137 mmol/L (136-145)
[2019-07-07 08:00] VITALS: BP 134/68
[2019-07-07 08:27] LABS: OVALOCYTES FEW; PLATELET SUFFICIENCY NORMAL (NORMAL); TARGET CELLS FEW; TOTAL CELLS COUNTED 100 #CELLS
[2019-07-07 08:28] LABS: POLYCHROMASIA SLIGHT; SCHISTOCYTES FEW; STOMATOCYTE FEW
[2019-07-07 12:00] VITALS: BP 136/79
[2019-07-07 16:00] VITALS: BP 142/80
[2019-07-07 20:00] VITALS: BP 118/68
[2019-07-08] VITALS: BP 117/54
[2019-07-08 06:04] LABS: HEPATITIS B SURFACE AG Negative (Negative); HEPATITIS C AB <0.1 (0.0-0.9)
[2019-07-08 07:01] LABS: BASO % 0.1 % (0.0-1.0); EOS % 0.1 % (1.0-4.0); HEMATOCRIT 37.1 % (42.0-52.0); HEMOGLOBIN 10.4 g/dl (14.0-18.0); LYMPH # 0.6 10*3/uL (1.3-4.4); LYMPH % 5.2 % (27.0-41.0); MEAN CELL VOLUME 85.3 fl (80.0-94.0); MEAN CORPUSCULAR HGB 23.9 pg (27.0-31.0); MEAN PLATELET VOLUME 10.7 fl (9.6-12.3); MONO # 0.6 10*3/uL (0.1-1.0); MONO % 4.8 % (3.0-9.0); NEUT # 10.2 10*3/uL (2.3-7.9); NEUT % 87.7 % (47.0-73.0); NUCLEATED RED BLOOD CELL 0.2 % (0.0-0.0); PLATELET COUNT AUTOMATED 255 10*3/uL (130-400); RED BLOOD COUNT 4.35 10*6/uL (4.50-5.90); RED CELL DISTRI WIDTH 15.9 % (0-14.5); WHITE BLOOD COUNT 11.6 10*3/uL (4.8-10.8)
[2019-07-08 07:31] LABS: BUN 24 mg/dl (7-24); CHLORIDE 98 mmol/L (98-107); CREATININE 0.85 mg/dL (0.70-1.30); POTASSIUM 4.7 mmol/L (3.5-5.1); SODIUM 136 mmol/L (136-145)
[2019-07-08 08:00] VITALS: BP 127/82
[2019-07-08 12:00] VITALS: BP 128/69
[2019-07-08 15:06] LABS: ACID FAST SPEC PROCESSING Concentration (.)
[2019-07-08 16:00] VITALS: BP 138/69
[2019-07-08 20:00] VITALS: BP 125/72
[2019-07-09 06:49] LABS: BASO % 0.1 % (0.0-1.0); EOS % 0.1 % (1.0-4.0); HEMATOCRIT 38.1 % (42.0-52.0); HEMOGLOBIN 10.7 g/dl (14.0-18.0); LYMPH # 0.6 10*3/uL (1.3-4.4); LYMPH % 4.6 % (27.0-41.0); MEAN CELL VOLUME 84.7 fl (80.0-94.0); MEAN CORPUSCULAR HGB 23.8 pg (27.0-31.0); MEAN CORPUSCULAR HGB CONC 28.1 g/dl (33.0-37.0); MEAN PLATELET VOLUME 10.8 fl (9.6-12.3); MONO # 0.8 10*3/uL (0.1-1.0); MONO % 5.7 % (3.0-9.0); NEUT # 11.8 10*3/uL (2.3-7.9); NEUT % 87.8 % (47.0-73.0); PLATELET COUNT AUTOMATED 261 10*3/uL (130-400); WHITE BLOOD COUNT 13.4 10*3/uL (4.8-10.8)
[2019-07-09 07:08] LABS: BUN 24 mg/dl (7-24); CHLORIDE 96 mmol/L (98-107); CREATININE 0.92 mg/dL (0.70-1.30); POTASSIUM 4.2 mmol/L (3.5-5.1); SODIUM 136 mmol/L (136-145)
[2019-07-09 08:00] VITALS: BP 144/70
[2019-07-09 12:00] VITALS: BP 145/70
[2019-07-09 16:00] VITALS: BP 136/72
[2019-07-09 20:00] VITALS: BP 126/71
[2019-07-10 06:47] LABS: BASO % 0.1 % (0.0-1.0); EOS % 0.1 % (1.0-4.0); HEMATOCRIT 36.6 % (42.0-52.0); HEMOGLOBIN 10.3 g/dl (14.0-18.0); LYMPH # 0.5 10*3/uL (1.3-4.4); LYMPH % 4.5 % (27.0-41.0); MEAN CELL VOLUME 84.7 fl (80.0-94.0); MEAN CORPUSCULAR HGB 23.8 pg (27.0-31.0); MEAN CORPUSCULAR HGB CONC 28.1 g/dl (33.0-37.0); MEAN PLATELET VOLUME 11.1 fl (9.6-12.3); MONO # 0.7 10*3/uL (0.1-1.0); MONO % 6.3 % (3.0-9.0); NEUT # 10.3 10*3/uL (2.3-7.9); NEUT % 87.6 % (47.0-73.0); PLATELET COUNT AUTOMATED 240 10*3/uL (130-400); RED BLOOD COUNT 4.32 10*6/uL (4.50-5.90); RED CELL DISTRI WIDTH 16.1 % (0-14.5); WHITE BLOOD COUNT 11.8 10*3/uL (4.8-10.8)
[2019-07-10 06:49] LABS: BUN 24 mg/dl (7-24); CHLORIDE 95 mmol/L (98-107); CREATININE 0.95 mg/dL (0.70-1.30); POTASSIUM 4.3 mmol/L (3.5-5.1); SODIUM 135 mmol/L (136-145)
[2019-07-10 08:00] VITALS: BP 143/71
[2019-07-10 12:00] VITALS: BP 123/71
[2019-07-10] MEDS ORDERED: LASIX80 MG PO (12:38)
[2019-07-10] MEDS ORDERED: PREDNISONE10 MG PO (12:38)
[2019-08-20 11:09] LABS: ACID FAST CULTURE Negative (.)
== END 2019-07-10 15:10 | disposition other institution (70) | DRG 871 ==
LOC: ED 12:42 → 5E 17:07 → EDHOLD 17:07 → 5E 17:13
PROVIDERS: Emergency Medicine; Internal Medicine; Internal Medicine Critical Care Medicine; ADMIT Internal Medicine
DX: A41.9 Sepsis, unspecified organism (principal); I50.33 Acute on chronic diastolic (congestive) heart failure; J18.9 Pneumonia, unspecified organism; J96.22 Acute and chronic respiratory failure with hypercapnia; J96.21 Acute and chronic respiratory failure with hypoxia; E87.2 Acidosis; J44.1 Chronic obstructive pulmonary disease with (acute) exacerbation; J44.0 Chronic obstructive pulmonary disease with (acute) lower respiratory infection; E87.3 Alkalosis; Z68.44 Body mass index [BMI] 60.0-69.9, adult; R65.20 Severe sepsis without septic shock; E83.41 Hypermagnesemia; D64.9 Anemia, unspecified; I25.10 Atherosclerotic heart disease of native coronary artery without angina pectoris; I11.0 Hypertensive heart disease with heart failure; G47.33 Obstructive sleep apnea (adult) (pediatric); E11.40 Type 2 diabetes mellitus with diabetic neuropathy, unspecified; E11.65 Type 2 diabetes mellitus with hyperglycemia; E66.01 Morbid (severe) obesity due to excess calories; E78.00 Pure hypercholesterolemia, unspecified; I48.0 Paroxysmal atrial fibrillation; Z79.01 Long term (current) use of anticoagulants; Z90.49 Acquired absence of other specified parts of digestive tract; Z93.0 Tracheostomy status; Z83.3 Family history of diabetes mellitus; Z83.6 Family history of other diseases of the respiratory system; Z80.0 Family history of malignant neoplasm of digestive organs; Z80.41 Family history of malignant neoplasm of ovary; Z82.49 Family history of ischemic heart disease and other diseases of the circulatory system

== ENCOUNTER 2019-08-13 14:26 | Inpatient (IN) | payer MEDICARE, MEDICAID ==
[~2019-08-13] VITALS: Ht 182.9 cm; Wt 172.4 kg
--- NOTE | ~2019-08-13 | EKG ---
[place], [place] ELECTROCARDIOGRAM REPORT NAME: RUTHIE MONTELONGO SR UNIT #: [id number] ROOM: 421 DOCTOR: BRAYAN DRAFT REPORT BIRTHDATE: [birth year] [facility] Test Date: 2019-08-13 Test Time: 14:47:50 Pat Name: RUTHIE MONTELONGO Department: Room: 421 Gender: M Domestic Cleaner: : 1965 Requested By: CANDACE YIN DNP Order Number: [id number] Reading MD: Dean Espinosa Measurements Intervals [place] Rate: 83 P: -51 NH: 164 QRS: 88 QRSD: 116 T: 47 QT: 504 QTc: 593 Interpretive Statements Sinus or ectopic atrial rhythm Probable left atrial enlargement Nonspecific intraventricular conduction delay Compared to ECG 07/05/2019 14:23:14 Ectopic atrial rhythm now present Sinus rhythm no longer present Electronically Signed On 08-15-2019 7:37:32 PST by Dean Espinosa CM:EKGRPT:ELECTROCARDIOGRAM REPORT [id number] CANDACE YIN DNP EPIPHANY DRAFT REPORT CANDACE YIN DNP
[~2019-08-13 14:26] MED LIST changes: +ACETAZOLAMIDE500 M4 PO; +DILTIAZEM 24HR360 MG PO; +LASIX80 MG PO; +LIPITOR40 MG PO; +OMEPRAZOLE20 M3 PO; +PANTOPRAZOLE SO40 MG PO; +SPIRIVA -- 3018 MCG INH; +VITAMIN B-12100 MCG PO; +VITAMIN D31000 UNI1 PO
[2019-08-13 14:27] VITALS: BP 116/64
[2019-08-13 14:45] LABS: BASO % 0.1 % (0.0-1.0); EOS % 0.1 % (1.0-4.0); HEMATOCRIT 37.5 % (42.0-52.0); LYMPH # 0.8 10*3/uL (1.3-4.4); LYMPH % 4.8 % (27.0-41.0); MEAN CELL VOLUME 81.7 fl (80.0-94.0); MEAN CORPUSCULAR HGB CONC 29.3 g/dl (33.0-37.0); MEAN PLATELET VOLUME 9.2 fl (9.6-12.3); MONO # 0.8 10*3/uL (0.1-1.0); MONO % 4.4 % (3.0-9.0); NEUT # 15.8 10*3/uL (2.3-7.9); NEUT % 89.9 % (47.0-73.0); PLATELET COUNT AUTOMATED 309 10*3/uL (130-400); RED BLOOD COUNT 4.59 10*6/uL (4.50-5.90); RED CELL DISTRI WIDTH 16.2 % (0-14.5); WHITE BLOOD COUNT 17.6 10*3/uL (4.8-10.8)
[2019-08-13 14:58] LABS: ACT PARTIAL THROMBO TIME 25.5 SECONDS (20.0-32.1); INTERNATIONAL NORM RATIO 1.1 (2.0-3.5)
[2019-08-13 15:01] LABS: ALBUMIN 3.4 gm/dl (3.1-4.5); ALKALINE PHOSPHATASE 102 U/L (45-117); BUN 37 mg/dl (7-24); CHLORIDE 78 mmol/L (98-107); CREATININE 1.88 mg/dL (0.70-1.30); LIPASE 72 U/L (73-393); PHOSPHOROUS 3.1 mg/dL (2.5-4.9); POTASSIUM 2.9 mmol/L (3.5-5.1); SGOT/AST 21 IU/L (3-35); SGPT/ALT 30 U/L (12-78); SODIUM 128 mmol/L (136-145); TOTAL PROTEIN 7.4 gm/dL (6.4-8.2)
[2019-08-13 15:02] LABS: TROPONIN I < 0.015 ng/ml (<0.045)
[2019-08-13 15:30] VITALS: BP 116/62
[2019-08-13 16:40] VITALS: BP 114/86
[2019-08-13 17:40] VITALS: BP 116/88
[2019-08-13 18:00] VITALS: BP 126/71
--- NOTE | 2019-08-13 18:00 | NUR ---
A 54, admitted to 4E, under the services of JONATHAN Monroy DO with a diagnosis of HYPOKALEMIA,RENAL INSUFFICIENCY. Chief complaint is LOW POTASSIUM AT CARE HOME. Patient arrived via bed from ER. Monitor applied. Initial assessment completed. Vital signs taken and recorded. JONATHAN MONROY DO notified of admission to the unit. Orders received. See assessment for past medical history, medications and allergies. Patient and/or family oriented to unit. visitation policy reviewed. Clothing/patient valuable form completed. KELLY CLOUD R
[2019-08-13] MEDS ORDERED: DULOXETINE HCL60 MG PO (18:24)
[2019-08-13] MEDS ORDERED: GLYCOLAX119 GM PO (18:26)
[2019-08-13] MEDS ORDERED: MELATONIN5 M7 PO (18:28)
[2019-08-13] MEDS ORDERED: DULCOLAX STOOL100 M1 PO (18:34)
[2019-08-13] MEDS ORDERED: DULCOLAX STOOL100 MG PO (18:35)
[2019-08-13] MEDS ORDERED: METOLAZONE10 MG PO (18:36)
[2019-08-13] MEDS ORDERED: CRESTOR10 M1 PO (18:39)
[2019-08-13] MEDS ORDERED: PREDNISONE20 M1 PO (18:39)
[2019-08-13] MEDS ORDERED: SALINE NOSE SPR45 ML NAS (18:41)
[2019-08-13] MEDS ORDERED: TYLENOL325 M1 PO (18:43)
--- NOTE | 2019-08-13 19:05 | NUR ---
CALLED DR. FOX AWARE PT MEDICATIONS UPDATED ALSO PT NEEDS BIPAP FOR AT NIGHT. ALSO AWARE PT HAS OPEN AREA TO TOP RIGHT FOOT.
--- NOTE | 2019-08-13 19:35 | NUR ---
CALLED Brock FOX AWARE LACTIC ACID.
[2019-08-13 20:00] VITALS: BP 139/78
--- NOTE | 2019-08-13 20:11 | NUR ---
MEDICATED WITH PRN NORCO FOR C/O BACK PAIN. WILL MONITOR
--- NOTE | 2019-08-13 20:52 | NUR ---
MANI FROM RESPIRATORY CALLED AND STATED SHE WOULD BE UP WITH PATIENT'S BIPAP.
--- NOTE | 2019-08-13 21:32 | NUR ---
PATIENT CALLING OUT REQUESTING BIPAP. SINGLETON NOTIFIED
--- NOTE | 2019-08-13 21:50 | NUR ---
RESPIRATORY AT BEDSIDE TO SET UP BIPAP.
--- NOTE | 2019-08-13 22:03 | NUR ---
DR FOX AWARE OF CRITICAL LACTIC ACID
[2019-08-14] VITALS: BP 93/61
[2019-08-14 00:28] VITALS: BP 110/50
--- NOTE | 2019-08-14 03:22 | NUR ---
PATIENT REMAINS ON BIPAP WITH NO S/S OF DISTRESS. BED IN LOWEST POSITION, CALL LIGHT IN REACH
[2019-08-14 04:41] LABS: BILIRUBIN NEGATIVE (NEGATIVE); BLOOD NEGATIVE (NEGATIVE); CLARITY CLEAR (CLEAR); COLOR YELLOW (YELLOW); GLUCOSE NEGATIVE (NEGATIVE); KETONE NEGATIVE (NEGATIVE); LEUKO ESTERASE NEGATIVE (NEGATIVE); NITRITE NEGATIVE (NEGATIVE); PH 7.5 (5.0-9.0)
--- NOTE | 2019-08-14 06:07 | NUR ---
REGINALD LOPEZRUTHIE Ean [id number] Please refer to the physician's history and physical for past medical history, comorbid conditions, and allergies. Diagnosis: RENAL INSUFFICIENCY HYPPKALEMIA Valente Score: 17,AT RISK WOUND DESCRIPTIONS: Wound Number: 1 Location of the wound: Right dorsal aspect of foot Type of wound: medical assistant per diem related pressure injury ( stage 3 ) Thickness: Full Size: 0.5cm x 0.3cm x <0.1cm Tunneling: none Undermining: none Sinus Tract: none Presence of Exudate: Serosanguineous Amount: Light Color: Yellow, red Odor: None Periwound Skin Appearance: Erythema Wound edges: approximated Pain (associated with wound): none at time of assessment How does patient state this happened? pt stated he loss weight and his stocking have been rubbing and caused this area Surface the patient is resting on: Rental SKIN PREVENTION RECOMMENDATION: 1. Pressure redistribution support surface as appropriate 2. Elevate heels 3. Remove boots/TEDS every shift and reapply 4. Head of bed 30 degrees as tolerated 5. Assess nutrition and hydration 6. Manage moisture 7. Avoid the use of containment devices while in bed 8. Use absorptive products on surfaces limit layers of linens on bed 9. Turn and reposition every 1-2 hours in bed and every 1 hour in chair as tolerated 10. Weight shifts every 15 minutes while up in chair 11. Offloading with pillows or device to keep heels elevated off bed 12. Monitor skin at least every shift 13. Inspect under medical devices twice a day WOUND TREATMENT RECOMMENDATIONS: Stage 3 guidelines: Cleanse right dorsal aspect of foot with nss and apply sureprep around the wound therahoney to wound bed and cover with optifoam gentle. Heel raiser pro boots while in bed. Wheelchair cushion when oob.
[2019-08-14 06:28] LABS: BASO % 0.3 % (0.0-1.0); EOS # 0.1 10*3/uL (0.0-0.4); EOS % 0.3 % (1.0-4.0); HEMATOCRIT 35.5 % (42.0-52.0); HEMOGLOBIN 10.4 g/dl (14.0-18.0); LYMPH # 2.8 10*3/uL (1.3-4.4); LYMPH % 18.1 % (27.0-41.0); MEAN CELL VOLUME 82.8 fl (80.0-94.0); MEAN CORPUSCULAR HGB 24.2 pg (27.0-31.0); MEAN CORPUSCULAR HGB CONC 29.3 g/dl (33.0-37.0); MEAN PLATELET VOLUME 9.6 fl (9.6-12.3); MONO # 1.3 10*3/uL (0.1-1.0); MONO % 8.6 % (3.0-9.0); NEUT % 71.8 % (47.0-73.0); PLATELET COUNT AUTOMATED 298 10*3/uL (130-400); RED BLOOD COUNT 4.29 10*6/uL (4.50-5.90); RED CELL DISTRI WIDTH 16.1 % (0-14.5); WHITE BLOOD COUNT 15.3 10*3/uL (4.8-10.8)
[2019-08-14 06:55] LABS: ALBUMIN 3.1 gm/dl (3.1-4.5); ALKALINE PHOSPHATASE 83 U/L (45-117); BUN 29 mg/dl (7-24); CHLORIDE 81 mmol/L (98-107); PHOSPHOROUS 3.1 mg/dL (2.5-4.9); SGOT/AST 23 IU/L (3-35); SGPT/ALT 25 U/L (12-78); SODIUM 130 mmol/L (136-145); TOTAL PROTEIN 6.7 gm/dL (6.4-8.2)
[2019-08-14 07:00] LABS: POTASSIUM 2.3 mmol/L (3.5-5.1)
[2019-08-14 08:00] VITALS: BP 119/70
--- NOTE | 2019-08-14 08:00 | NUR ---
CALLED DR. OLIVIA MADE AWARE PT LABWORK FROM THIS AM.
--- NOTE | 2019-08-14 08:30 | NUR ---
PT RESTING IN BED. RESP-EASY AND REGULAR AT THIS TIME. OXYGEN IN USE. TOLERATED ROUTINE MED WITH NO PROBLEM. CALL LIGHT IN REACH. SEE SHIFT ASSESSMENT.
--- NOTE | 2019-08-14 08:30 | NUR ---
DR. LOFTON ON FLOOR AWARE LABS, CALL DR. HEART. OFFICE CALLED REGARDING CONSULT AND TO RETURN CALL REGARDING LABS.
--- NOTE | 2019-08-14 09:00 | NUR ---
Warehouse Consultant in to talk to patient. Patient states lives at home with sister. There are no steps in the home. Physician: [facility] Home health services: none at present Patient's level of ADLs: MODERATE ASSIST Patient has working utilities: all working DME: electric scooter, home oxygen, portable tanks and nebulzier Follow-up physician's appointment after d/c: will be made by hospitalist nurse director upon dischage Does patient want to access PORTAL?: no Discharge plan discussed with patient, he lives at home with disabled sister but currently is a [facility] for skilled care, he states he is scheduled to be discaharged from [facility] on 08/30 he would like to return to [facility] when medically stable and ready for discharge from the hospital. facility planner will make transportation arrangement when patient is stable for discharge. STACI BAPTISTE
--- NOTE | 2019-08-14 10:36 | NUR ---
DR. HEART IN TO SEE PT. CHECK POTASSIUM LEVEL ONE HOUR AFTER K RUN DONE.
--- NOTE | 2019-08-14 11:00 | NUR ---
BSG-229, SEE EMAR. SITTING UP IN BED. RESP-EASY AND REGULAR. OXYGEN IN USE. VISITORS AT HIS SIDE. CALL LIGHT IN REACH.
--- NOTE | 2019-08-14 11:13 | NUR ---
Nutritional Support Services Note: Pt is eating 100% of all meals. 1800cal diabetic diet as ordered. Hx of CHF, renal insuffiency. Flucuating weight, pt reports weight loss. Current wt 301# Ht.6' June weight 424#. Continue to encourage compliance to diet for BS control and weight loss. Wound noted to top of foot, discussed adequate protein intake. Will follow as needed. Leti Naidud
--- NOTE | 2019-08-14 11:30 | NUR ---
Occupational Therapy evaluation completed on 4 with full eval to follow. Precautions include obesity, oxygen dependency, SOB with minimal exertion, moderate complexity level 50115 via chart review, testing and evaluation. REcomemnd return to SNF to enable return home at indep level. Thank you. Nae Kwong OTR/L
[2019-08-14 12:00] VITALS: BP 120/68
--- NOTE | 2019-08-14 14:30 | NUR ---
PT SLEEPING IN BED WITH BIPAP IN USE. CALL LIGHT IN REACH.
[2019-08-14 16:00] VITALS: BP 122/84
--- NOTE | 2019-08-14 16:00 | NUR ---
PT SITTING UP AT SIDE OF BED. RESP-EASY AND REGULAR. BSG-391, SEE EMAR. CALL LIGHT IN REACH. NO C/O AT THIS TIME. CALL LIGHT IN REACH. SEE SHIFT ASSESSMENT.
--- NOTE | 2019-08-14 16:21 | NUR ---
PHYSICAL THERAPY Physical therapy referral and screen received. Thank you Nuha Valentine, PT, DPT
--- NOTE | 2019-08-14 16:22 | NUR ---
Nursing screen and occupational therapy referral received. Thank you. Nae Kwong OTR/L
[2019-08-14 17:10] LABS: CREATININE 1.48 mg/dL (0.70-1.30); POTASSIUM 3.6 mmol/L (3.5-5.1)
--- NOTE | 2019-08-14 17:40 | NUR ---
CALLED DR. OLIVIA MADE AWARE OF LABWORK.
--- NOTE | 2019-08-14 18:50 | NUR ---
PT SITTING UP AT SIDE OF BED. TOLERATED ROUTINE MED WITH NO PROBLEM. OXYGEN IN USE. CALL LIGHT IN REACH.
[2019-08-14 20:00] VITALS: BP 117/63
--- NOTE | 2019-08-14 20:00 | NUR ---
SITTING AT BEDSIDE WITH NO DISTRESS NOTED. RESPIRATIONS EASY. LUNGS DIMINISHED WITH EXP WHEEZES. PULSE OX 95% 6L, HUMIDIFICATION APPLIED. BLE DISCOLORED AND EDEMATOUS. CALL LIGHT WITHIN REACH. NO VOICED COMPLAINTS
--- NOTE | 2019-08-14 20:38 | NUR ---
24 HR chart check completed.
--- NOTE | 2019-08-14 22:03 | NUR ---
REQUESTED AND RECEIVED RESTORIL PER PRN ORDER TO ASSIST WITH SLEEP. WILL MONITOR FOR EFFECTIVENESS
--- NOTE | 2019-08-15 | NUR ---
RESTING WITH EYES CLOSED AND NO ACUTE DISTRESS NOTED. RESPIRATIONS EASY. BI-PAP AND CONT PULSE OX IN USE, PULSE OX 99%. CALL LIGHT WITHIN REACH.
--- NOTE | 2019-08-15 06:00 | NUR ---
SLEPT THROUGHOUT NIGHT WITH NO DISTRESS NOTED. RESPIRATIONS EASY. BI-PAP REMOVED AT THIS TIME AND O2 REAPPLIED AT 6L. CALL LIGHT WITHIN REACH. NO VOICED COMPLAINTS
[2019-08-15 06:28] LABS: BASO % 0.2 % (0.0-1.0); EOS % 0.1 % (1.0-4.0); HEMOGLOBIN 10.2 g/dl (14.0-18.0); LYMPH # 2.6 10*3/uL (1.3-4.4); LYMPH % 15.9 % (27.0-41.0); MEAN CELL VOLUME 82.2 fl (80.0-94.0); MEAN CORPUSCULAR HGB 23.9 pg (27.0-31.0); MEAN CORPUSCULAR HGB CONC 29.1 g/dl (33.0-37.0); MONO # 1.2 10*3/uL (0.1-1.0); MONO % 7.3 % (3.0-9.0); NEUT # 12.3 10*3/uL (2.3-7.9); NEUT % 75.3 % (47.0-73.0); PLATELET COUNT AUTOMATED 285 10*3/uL (130-400); RED BLOOD COUNT 4.26 10*6/uL (4.50-5.90); RED CELL DISTRI WIDTH 15.9 % (0-14.5); WHITE BLOOD COUNT 16.4 10*3/uL (4.8-10.8)
[2019-08-15 06:41] LABS: ALBUMIN 3.1 gm/dl (3.1-4.5); ALKALINE PHOSPHATASE 82 U/L (45-117); BUN 22 mg/dl (7-24); CHLORIDE 87 mmol/L (98-107); CREATININE 1.01 mg/dL (0.70-1.30); POTASSIUM 2.7 mmol/L (3.5-5.1); SGOT/AST 17 IU/L (3-35); SGPT/ALT 24 U/L (12-78); SODIUM 133 mmol/L (136-145); TOTAL PROTEIN 6.6 gm/dL (6.4-8.2)
--- NOTE | 2019-08-15 06:48 | NUR ---
DR FOX CONTACTED AND INFORMED OF CRITICAL CO2. NO NEW ORDERS RECEIVED
--- NOTE | 2019-08-15 07:37 | NUR ---
Patient updated clinicals faxed to Hina at [facility] for review. patient is currently short term rehab and ok to return when medically stable for discharge.
[2019-08-15 08:00] VITALS: BP 122/65
--- NOTE | 2019-08-15 08:25 | NUR ---
PATIENT ASSESSMENT COMPLETED AT THIS TIME, PATIENT DENIES ANY DISTRESS AT THIS TIME, MEDICATIONS TAKEN ORALLY WITHOUT INCIDENT. CALL LIGHT WITHIN REACH. WILL CONTINUE TO MONITOR.
--- NOTE | 2019-08-15 08:35 | NUR ---
OT NOTE Pt was seen this A.M. 1:1 for 25 minute OT session. Upon arrival pt was sitting upright on the EOB. Pt identified by name and and had no complaints at this time. Pt presented to therapy with continuous 6L-O2 via NC which he remained on throughout the entire session. Pt's resting SpO2 was 97% and heart rate 81 bpm. Pt completed sit to stand from bed level with CGA for safety, challenged pt's static standing tolerance needed for increased I in ADL/IADL tasks and improving endurance. Pt was able to tolerate aprox 2 minute 30 seconds before sitting due to fatigue and feeling SOB. Pt's SpO2 dropped to 90% and heart rate 101 bpm after aprox 45 sec rest pt's SpO2 raised back up to 96% and heart rate 95 bpm. Pt then completed functional mobility to the bathroom and back with CGA for safety, pt's SpO2 dropped to 89% and after a 10 second seated rest break SpO2 raised back to 92%. While sitting EOB pt completed BUE towel exercises over all planes of motion for 1 x 15 for increased strength needed for increased I in self care tasks and functional transfers. SpO2 remained within functional limits throughout. Throughout all tasks both seated and standing pt required constant verbal prompts for slowing down due to being impulsive and increasing risk of falls and increasing risk of becoming SOB. Pt presented with fair carry over. Pt was left sitting upright on the EOB with call light in hand and tray table in place. Continue with rec D/C plan to return to SNF. TRUE Canales
--- NOTE | 2019-08-15 08:48 | NUR ---
PHYSICAL THERAPY Physical therapy evaluation completed, 4E. Full details to follow. Moderate complexity determined after evaluation/chart review, [address]. PT to work on strength, endurance, gait, safety and balance. Recommending SNF at discharge. Thank you Nuha Valentine, PT, DPT
--- NOTE | 2019-08-15 09:00 | NUR ---
case management visits with patient, he stated he would return to [facility] and finish his rehab, no other needs at this time
--- NOTE | 2019-08-15 09:50 | NUR ---
24 HOUR CHART CHECK COMPLETED
[2019-08-15 12:00] VITALS: BP 136/73
[2019-08-15 16:00] VITALS: BP 133/70
[2019-08-15 20:00] VITALS: BP 141/78
--- NOTE | 2019-08-15 21:00 | NUR ---
PATIENT REQUESTED THAT THE AIDES DO NOT TAKE HIS MIDNIGHT VITALS SO THAT HE CAN SLEEP.
[2019-08-16 06:52] LABS: BASO % 0.2 % (0.0-1.0); EOS % 0.2 % (1.0-4.0); HEMATOCRIT 38.5 % (42.0-52.0); LYMPH # 2.7 10*3/uL (1.3-4.4); LYMPH % 14.1 % (27.0-41.0); MEAN CELL VOLUME 83.3 fl (80.0-94.0); MEAN CORPUSCULAR HGB 23.8 pg (27.0-31.0); MEAN CORPUSCULAR HGB CONC 28.6 g/dl (33.0-37.0); MEAN PLATELET VOLUME 10.1 fl (9.6-12.3); MONO # 1.2 10*3/uL (0.1-1.0); MONO % 6.4 % (3.0-9.0); NEUT # 14.9 10*3/uL (2.3-7.9); NEUT % 77.8 % (47.0-73.0); PLATELET COUNT AUTOMATED 329 10*3/uL (130-400); RED BLOOD COUNT 4.62 10*6/uL (4.50-5.90); RED CELL DISTRI WIDTH 15.9 % (0-14.5); WHITE BLOOD COUNT 19.2 10*3/uL (4.8-10.8)
[2019-08-16 07:15] LABS: BUN 23 mg/dl (7-24); CHLORIDE 89 mmol/L (98-107); CREATININE 1.17 mg/dL (0.70-1.30); POTASSIUM 3.2 mmol/L (3.5-5.1); SODIUM 134 mmol/L (136-145)
--- NOTE | 2019-08-16 07:30 | NUR ---
Patient resting quietly with no c/o discomfort. Respirations easy and regular. Vital signs stable. No overt distress. AMANDA ASKEW
[2019-08-16 08:00] VITALS: BP 122/68; BP 148/79
--- NOTE | 2019-08-16 08:47 | NUR ---
24 HR chart check completed.
[2019-08-16] MEDS ORDERED: BUMETANIDE1 MG PO (09:25)
--- NOTE | 2019-08-16 12:00 | NUR ---
PT LEAVING IN CARE OF AMBULANCE AND REFUSED WOUND PHOTO.
--- NOTE | 2019-08-16 13:00 | NUR ---
REPORT CALLED TO [facility], QUESTIONS ANSWERED.
--- NOTE | 2019-08-19 07:56 | NUR ---
OCCUPATIONAL THERAPY CO-SIGN I approve of the Occupational Therapy notes written above. ROSEMARY CARLISLE OTR/Raquel
== END 2019-08-16 12:00 | disposition other institution (70) | DRG 683 ==
LOC: ED 14:26 → 4E 16:12 → EDHOLD 16:12 → 4E 17:23
PROVIDERS: Internal Medicine; Nurse Practitioner Family; ADMIT Family Medicine
PROC: 5A09357 Assistance with Respiratory Ventilation, Less than 24 Consecutive Hours, Continuous Positive Airway Pressure (ICD-10-PCS; principal; 2019-08-13)
DX: N17.0 Acute kidney failure with tubular necrosis (principal); E44.0 Moderate protein-calorie malnutrition; I50.32 Chronic diastolic (congestive) heart failure; J96.11 Chronic respiratory failure with hypoxia; Z68.43 Body mass index [BMI] 50.0-59.9, adult; E87.1 Hypo-osmolality and hyponatremia; E87.2 Acidosis; E87.6 Hypokalemia; Z99.81 Dependence on supplemental oxygen; I50.9 Heart failure, unspecified; J44.9 Chronic obstructive pulmonary disease, unspecified; J45.909 Unspecified asthma, uncomplicated; E11.9 Type 2 diabetes mellitus without complications; I11.0 Hypertensive heart disease with heart failure; I48.91 Unspecified atrial fibrillation; F17.210 Nicotine dependence, cigarettes, uncomplicated; Z79.899 Other long term (current) drug therapy; Z79.4 Long term (current) use of insulin; Z79.82 Long term (current) use of aspirin; Z90.49 Acquired absence of other specified parts of digestive tract; Z90.89 Acquired absence of other organs; Z93.0 Tracheostomy status; Z95.2 Presence of prosthetic heart valve; Z83.3 Family history of diabetes mellitus; Z82.49 Family history of ischemic heart disease and other diseases of the circulatory system; Z80.0 Family history of malignant neoplasm of digestive organs; Z83.6 Family history of other diseases of the respiratory system; N28.9 Disorder of kidney and ureter, unspecified; E66.01 Morbid (severe) obesity due to excess calories; G51.0 Bell's palsy; E78.00 Pure hypercholesterolemia, unspecified; E11.40 Type 2 diabetes mellitus with diabetic neuropathy, unspecified; G47.33 Obstructive sleep apnea (adult) (pediatric); I48.0 Paroxysmal atrial fibrillation; E87.8 Other disorders of electrolyte and fluid balance, not elsewhere classified; D72.829 Elevated white blood cell count, unspecified; E11.65 Type 2 diabetes mellitus with hyperglycemia; E83.41 Hypermagnesemia; I48.20 Chronic atrial fibrillation, unspecified; D64.9 Anemia, unspecified; I87.2 Venous insufficiency (chronic) (peripheral)

== ENCOUNTER → 2019-09-12 | Outpatient (CLI) | payer MEDICARE, MEDICAID ==
[~2019-09-12] MED LIST changes: +BUMETANIDE1 MG PO; +CRESTOR10 M1 PO; +DULCOLAX STOOL100 M1 PO; +DULCOLAX STOOL100 MG PO; +DULOXETINE HCL60 MG PO; +GLYCOLAX119 GM PO; +MELATONIN5 M7 PO; +METOLAZONE10 MG PO; +TYLENOL325 M1 PO
== END | disposition home or self-care (01) ==
LOC: RESCLI 01:43
DX: I13.0 Hypertensive heart and chronic kidney disease with heart failure and stage 1 through stage 4 chronic kidney disease, or unspecified chronic kidney disease (principal); I50.20 Unspecified systolic (congestive) heart failure; N18.4 Chronic kidney disease, stage 4 (severe); E55.9 Vitamin D deficiency, unspecified; E53.8 Deficiency of other specified B group vitamins; I48.20 Chronic atrial fibrillation, unspecified; J96.01 Acute respiratory failure with hypoxia; J96.10 Chronic respiratory failure, unspecified whether with hypoxia or hypercapnia; E78.5 Hyperlipidemia, unspecified; K59.00 Constipation, unspecified; F32.9 Major depressive disorder, single episode, unspecified; G47.00 Insomnia, unspecified; E11.9 Type 2 diabetes mellitus without complications; E66.9 Obesity, unspecified; J43.9 Emphysema, unspecified; E78.00 Pure hypercholesterolemia, unspecified; M19.90 Unspecified osteoarthritis, unspecified site; F17.200 Nicotine dependence, unspecified, uncomplicated; Z79.899 Other long term (current) drug therapy

== ENCOUNTER → 2019-11-07 | Outpatient (CLI) | payer MEDICARE, MEDICAID | END | disposition home or self-care (01) | LOC: RESCLI 00:38 | DX: I48.21 Permanent atrial fibrillation (principal); E55.9 Vitamin D deficiency, unspecified; J96.01 Acute respiratory failure with hypoxia; J96.10 Chronic respiratory failure, unspecified whether with hypoxia or hypercapnia; I11.0 Hypertensive heart disease with heart failure; I50.9 Heart failure, unspecified; E78.5 Hyperlipidemia, unspecified; K59.00 Constipation, unspecified; F32.9 Major depressive disorder, single episode, unspecified; G47.00 Insomnia, unspecified; E11.9 Type 2 diabetes mellitus without complications; J18.9 Pneumonia, unspecified organism; F17.200 Nicotine dependence, unspecified, uncomplicated; J44.9 Chronic obstructive pulmonary disease, unspecified; Z79.899 Other long term (current) drug therapy; Z90.89 Acquired absence of other organs; Z90.49 Acquired absence of other specified parts of digestive tract ==

== ENCOUNTER 2019-11-14 15:45 | Emergency (ER) | payer MEDICARE, MEDICAID ==
[2019-11-14 16:24] LABS: HEMATOCRIT 40.2 % (42.0-52.0); HEMOGLOBIN 11.6 g/dl (14.0-18.0); MEAN CELL VOLUME 87.2 fl (80.0-94.0); MEAN CORPUSCULAR HGB 25.2 pg (27.0-31.0); MEAN CORPUSCULAR HGB CONC 28.9 g/dl (33.0-37.0); MEAN PLATELET VOLUME 10.1 fl (9.6-12.3); PLATELET COUNT AUTOMATED 197 10*3/uL (130-400); RED BLOOD COUNT 4.61 10*6/uL (4.50-5.90); RED CELL DISTRI WIDTH 17.1 % (0-14.5); WHITE BLOOD COUNT 18.4 10*3/uL (4.8-10.8)
[2019-11-14 16:34] LABS: ACT PARTIAL THROMBO TIME 24.8 SECONDS (20.0-32.1); INTERNATIONAL NORM RATIO 0.9 (2.0-3.5)
[2019-11-14 16:41] LABS: ALBUMIN 3.5 gm/dl (3.1-4.5); ALKALINE PHOSPHATASE 77 U/L (45-117); BUN 20 mg/dl (7-24); CHLORIDE 94 mmol/L (98-107); CREATININE 1.47 mg/dL (0.70-1.30); POTASSIUM 4.6 mmol/L (3.5-5.1); SGOT/AST 14 IU/L (3-35); SGPT/ALT 33 U/L (12-78); SODIUM 135 mmol/L (136-145); TOTAL PROTEIN 6.9 gm/dL (6.4-8.2); TROPONIN I 0.021 ng/ml (<0.045)
[2019-11-14 16:44] LABS: PLATELET SUFFICIENCY NORMAL (NORMAL); TOTAL CELLS COUNTED 100 #CELLS
[2019-11-14] MEDS ORDERED: DOXYCYCLINE100 M3 PO (19:45)
== END 2019-11-14 20:02 | disposition home or self-care (01) ==
LOC: ED 15:45
PROVIDERS: Internal Medicine
DX: J44.1 Chronic obstructive pulmonary disease with (acute) exacerbation (principal); L03.115 Cellulitis of right lower limb; I48.20 Chronic atrial fibrillation, unspecified; I11.0 Hypertensive heart disease with heart failure; I50.32 Chronic diastolic (congestive) heart failure; E78.00 Pure hypercholesterolemia, unspecified; G47.33 Obstructive sleep apnea (adult) (pediatric); E11.9 Type 2 diabetes mellitus without complications; I48.0 Paroxysmal atrial fibrillation; F32.9 Major depressive disorder, single episode, unspecified; Z90.49 Acquired absence of other specified parts of digestive tract; Z79.82 Long term (current) use of aspirin; Z79.899 Other long term (current) drug therapy; Z79.4 Long term (current) use of insulin; Z87.891 Personal history of nicotine dependence

== ENCOUNTER 2019-12-06 15:16 | Inpatient (IN) | payer MEDICARE, MEDICAID ==
[2019-12-06] VITALS (7 sets, daily range): BP systolic 120–164; BP diastolic 68–98
[~2019-12-06] VITALS: Ht 185.4 cm; Wt 184.4 kg
[2019-12-06 15:46] LABS: HEMATOCRIT 37.3 % (42.0-52.0); HEMOGLOBIN 10.9 g/dl (14.0-18.0); MEAN CELL VOLUME 89.2 fl (80.0-94.0); MEAN CORPUSCULAR HGB 26.1 pg (27.0-31.0); MEAN CORPUSCULAR HGB CONC 29.2 g/dl (33.0-37.0); MEAN PLATELET VOLUME 10.5 fl (9.6-12.3); PLATELET COUNT AUTOMATED 177 10*3/uL (130-400); RED BLOOD COUNT 4.18 10*6/uL (4.50-5.90); RED CELL DISTRI WIDTH 16.3 % (0-14.5); WHITE BLOOD COUNT 19.5 10*3/uL (4.8-10.8)
[2019-12-06 16:03] LABS: ALBUMIN 3.3 gm/dl (3.1-4.5); CREATININE 1.72 mg/dL (0.70-1.30); POTASSIUM 4.5 mmol/L (3.5-5.1); TOTAL PROTEIN 6.8 gm/dL (6.4-8.2); TROPONIN I 0.018 ng/ml (<0.045)
[2019-12-06 16:04] LABS: PLATELET SUFFICIENCY NORMAL (NORMAL); TOTAL CELLS COUNTED 100 #CELLS
[2019-12-06 16:05] LABS: STOMATOCYTE FEW
--- NOTE | 2019-12-06 16:05 | NUR ---
PT REQUESTED BIPAP FOR SOB. PT WEARS ONE AT HOME, 30/09, RR 14, SPO2 98% BIPAP 45%, HR 148
--- NOTE | 2019-12-06 16:05 | NUR ---
WOUNDCARE PHOTOS AND MEASUREMENTS OBTAINED PER PROTOCOL.
--- NOTE | 2019-12-06 16:55 | NUR ---
PT TACHYCARDIC. DR AWARE. NO NEW ORDERS RECEIVED.
--- NOTE | 2019-12-06 17:13 | NUR ---
DR ROMERO AWARE OF PT'S HEART RATE 150'S, NO NEW ORDERS RECEIVED AT THIS TIME.
--- NOTE | 2019-12-06 17:16 | NUR ---
PT GLUCOSE 340. DR ROGEL.
--- NOTE | 2019-12-06 18:30 | NUR ---
A 54, admitted to ICCU, under the services of MATTHEW Chavis DO with a diagnosis of CHF. Chief complaint is SHORTNESS OF BREATH. Patient arrived via stretcher from ER. Monitor applied. Initial assessment completed. Vital signs taken and recorded. MATTHEW CHAVIS DO notified of admission to the unit. Orders received. See assessment for past medical history, medications and allergies. Patient and/or family oriented to unit. [facility] ICCU visitation policy reviewed. Clothing/patient valuable form completed. AMANDA KANG
[2019-12-06 19:07] LABS: ABG BASE EXCESS 5.9 mmol/L (-2.0-2.0); ARTERIAL BLOOD GAS PH 7.335 (7.35-7.45)
--- NOTE | 2019-12-06 19:13 | NUR ---
DR MCPHERSON IN TO SEE PT AND NOTIFIED OF RED PAINFUL SWOLLEN AREAS TO GROIN AND ABD.
--- NOTE | 2019-12-06 19:49 | NUR ---
MESSAGE LEFT FOR DR. WEBSTER REGARDING CONSULT.
--- NOTE | 2019-12-06 19:53 | NUR ---
DR. CASTRO BEEPED FOR CONSULT. PT HR REMAINS ELEVATED AT [address] #16 WICK INSERTED EARLIER AFTER SECOND DOSE OF LASIX 40MG. 600CC CLEAR YELLOW URINE NOTED IN WICK BAG. PT RESTING IN BED WITH HOB ELEVATED. SIDE RAILS UP X'S 2. CALL LLIGHT IN REACH. PULSE OX 98% ON 45% FIO2 VIA BIPAP.
--- NOTE | 2019-12-06 19:55 | NUR ---
DR. CASTRO ANSWERED - ORDERS RECEIVED.
--- NOTE | 2019-12-06 19:57 | NUR ---
DR. PALACIOS CALLED AND INFORMED THAT MED REC IS UPDATED AND ALSO LACTIC ACID OF 2.9.
--- NOTE | 2019-12-06 20:20 | NUR ---
DR. WEBSTER ANSWERED - ORDERS RECEIVED.
--- NOTE | 2019-12-06 21:01 | NUR ---
PT RESTING IN BED WITH BIPAP INTACT. HR REMAINS 150. CARDIZEM BOLUS GIVEN AND GTT INFUSING. SECOND IV SITE STARTED KAMINI WITH #22 ANGIO. HEP LOCK INSERTED AND FLUSHED. TOLERATED WELL. STERILE DRSG TO SITE. TAKING SMALL AMOUNT ICE CHIPS.
--- NOTE | 2019-12-06 22:27 | NUR ---
HAD LARGE LOOSE BM ON BEDPAN AND WAS ALSO INCONTINENT. BHARATI CARE DONE AND LINENS CHANGED. ATTEMPTED TO EAT DUE TO C/O'S HUNGER. BECAME VERY SOB ON 6L O2 VIA NC. WAS UNABLE TO EAT. HR REMAINS ELEVATED AT 150. PT REQUESTING A FAN. OBTAINED FAN.
--- NOTE | 2019-12-06 22:55 | NUR ---
PT HR IS IN THE 120-150'S NOW WITH CARDIZEM GTT CONT.
[2019-12-06 23:01] LABS: BILIRUBIN NEGATIVE (NEGATIVE); BLOOD TRACE-INTACT (NEGATIVE); CLARITY CLEAR (CLEAR); COLOR YELLOW (YELLOW); GLUCOSE 2+ (NEGATIVE); KETONE NEGATIVE (NEGATIVE); LEUKO ESTERASE NEGATIVE (NEGATIVE); NITRITE NEGATIVE (NEGATIVE); SPECIFIC GRAVITY 1.015 (1.005-1.030); UROBILINOGEN 0.2 E.U./dl (0.2-1.0)
[2019-12-06 23:03] LABS: BACTERIA TRACE; EPITHELIAL CELLS 0-2
--- NOTE | 2019-12-06 23:18 | NUR ---
2300 RESTORIL PO FOR SLEEP. WILL MONITOR. HR 111 AT A-FIB.
[2019-12-07] VITALS (13 sets, daily range): BP systolic 109–154; BP diastolic 65–94
--- NOTE | 2019-12-07 00:06 | NUR ---
EARLIER RESTORIL EFFETIVE. RESTING IN BED WITH EYES CLOSED. APPEARS TO BE SLEEPING. HOB ELEVATED. SIDE RAILS UP X'S 2. CALL LIGHT IN REACH. PULSE OX 99% WITH BIPAP INTACT. CARDIZEM GTT CONT AT 10MG. MONITOR REMAINS A-FIB WITH A HR IN THE LOW 100'S. HEP LOCK INTACT KAMINI. NO DISTRESS NOTED. WICK PATENT AND DRAINING CLEAR YELLOW URINE.
--- NOTE | 2019-12-07 02:03 | NUR ---
REMAINS SLEEPING WIHOUT DISTRESS WITH BIPAP INTACT.
--- NOTE | 2019-12-07 06:06 | NUR ---
BIPAP INTACT. PULSE OX 100%. CARDIZEM GTT CONT. MONITOR REMAINS A-FIB. WICK PATENT. EDEMA CONT FEET TO ABD. LOWER EXTREMITIES REMAIN RED IN APPEARANCE. ALSO LOWER ABD. CONDITION GUARDED.
[2019-12-07 06:50] LABS: BASO % 0.2 % (0.0-1.0); EOS % 0.1 % (1.0-4.0); HEMATOCRIT 37.5 % (42.0-52.0); HEMOGLOBIN 10.4 g/dl (14.0-18.0); LYMPH # 1.4 10*3/uL (1.3-4.4); LYMPH % 8.6 % (27.0-41.0); MEAN CELL VOLUME 91.5 fl (80.0-94.0); MEAN CORPUSCULAR HGB 25.4 pg (27.0-31.0); MEAN CORPUSCULAR HGB CONC 27.7 g/dl (33.0-37.0); MEAN PLATELET VOLUME 10.9 fl (9.6-12.3); MONO # 1.3 10*3/uL (0.1-1.0); MONO % 7.9 % (3.0-9.0); NEUT # 13.1 10*3/uL (2.3-7.9); NEUT % 81.7 % (47.0-73.0); PLATELET COUNT AUTOMATED 182 10*3/uL (130-400); RED CELL DISTRI WIDTH 16.1 % (0-14.5)
[2019-12-07 07:16] LABS: ABG BASE EXCESS 9.2 mmol/L (-2.0-2.0); ARTERIAL BLOOD GAS PH 7.297 (7.35-7.45)
[2019-12-07 07:31] LABS: ALBUMIN 3.2 gm/dl (3.1-4.5); ALKALINE PHOSPHATASE 71 U/L (45-117); BUN 19 mg/dl (7-24); CHLORIDE 96 mmol/L (98-107); CREATININE 1.47 mg/dL (0.70-1.30); POTASSIUM 3.9 mmol/L (3.5-5.1); SGOT/AST 18 IU/L (3-35); SGPT/ALT 29 U/L (12-78); SODIUM 137 mmol/L (136-145); TOTAL PROTEIN 6.6 gm/dL (6.4-8.2)
--- NOTE | 2019-12-07 08:28 | NUR ---
DR CASTRO NOTIFIED OF PT'S VITAL SIGNS. NEW ORDER FOR LOPRESSOR PO ORDERED.
--- NOTE | 2019-12-07 08:33 | NUR ---
DR WEBSTER NOTIFIED OF ABG RESULTS. NEW ORDER FOR BIPAP SETTINGS RECIEVED.
--- NOTE | 2019-12-07 08:50 | NUR ---
PT MEDICATED WITH ATIVAN 1MG IV FOR ANXIETY.
--- NOTE | 2019-12-07 09:40 | NUR ---
PT LESS ANXIOUS SINCE RECIEVING IV ATIVAN. RESP RATE 22. HEAR RATE 115. POX 94% ON 45% O2 VIA BIPAP.
[2019-12-07 11:07] LABS: ABG BASE EXCESS 8.6 mmol/L (-2.0-2.0); ARTERIAL BLOOD GAS PH 7.272 (7.35-7.45)
--- NOTE | 2019-12-07 11:14 | NUR ---
DR WEBSTER NOTIFIED OF ABG RESULTS. SPOKE WITH RESPIRATORY THERPAY ABOUT BIPAP CHANGES.
--- NOTE | 2019-12-07 11:15 | NUR ---
BI-PAP SETTINGS CHANGED TO , BACK UP RATE OF [address] WEBSTER.
--- NOTE | 2019-12-07 13:30 | NUR ---
DR WEBSTER MADE AWARE OF ABG RESULTS.
[2019-12-07 13:42] LABS: ABG BASE EXCESS 11.3 mmol/L (-2.0-2.0); ARTERIAL BLOOD GAS PH 7.37 (7.35-7.45)
--- NOTE | 2019-12-07 16:25 | NUR ---
ABSTRACT CLERK BROCK CASTRO IN TO SEE PT AND SPOKE WITH DR OLIVIA REGARDING PLAN OF CARE.
--- NOTE | 2019-12-07 20:10 | NUR ---
1944 RESTING IN BED ON RIGHT SIDE. HOB ELEVATED. SIDE RAILS UP X'S 2. CALL LIGHT IN REACH. PULSE OX 98% ON 40% FIO2 ON BIPAP. CARDIZEM GTT CONT AT 10MG HEP LOCK INTACT KAMINI. MONITOR NSR -ST. WICK PATENT AND DRAINING CLEAR LILA URINE. NO DISTRESS NOTED. NO C/O'S VOICED. ABD REMAINS DISTENDED. EDEMA CONT LOWER EXTREMTIES TO ABD. LOWER EXTREMITIES REMAIN RED IN APPEARANCE.
--- NOTE | 2019-12-07 22:08 | NUR ---
DIURES[place] WE[place]ASIX [place] [address]. URINE IS BLOOD TINGED IN APPEARANCE. PT RESTING IN BED WITH EYES CLOSED. APPEARS TO BE SLEEPING.
[2019-12-08] VITALS (12 sets, daily range): BP systolic 104–134; BP diastolic 63–90
--- NOTE | 2019-12-08 04:16 | NUR ---
0415 TYLENOLL 2 PO GIVEN FOR C/O'S H/A. WILL MONITOR. RESTING IN BED WITH BIPAP INTACT.
--- NOTE | 2019-12-08 06:08 | NUR ---
EARLIER TYLENOL EFFECTIVE. RESTING IN BED WITHOUT C/O'S. CARDIZEM INFUSING AT 5MG. WICK PATENT AND DRAINING BLOOD TINGED URINE. CONDITION GUARDED.
--- NOTE | 2019-12-08 07:10 | NUR ---
PT ON BIPAP AT THIS TIME
--- NOTE | 2019-12-08 08:00 | NUR ---
ALERT AND ORIENTED, VERY FRIENDLY GENTLEMAN, ON NC AT 6 L, PT CAN SHIFT HISSELF ABOUT IN BED, LIMITED BY SIZE OF BED, IV SITE TO RFA DISLODGED, CARDIZEM CONTINUES IN LEFT AC, WICK SECURE
--- NOTE | 2019-12-08 08:12 | NUR ---
TOOK PT OFF BIPAP TO EAT BREAKFAST PER RN
[2019-12-08 08:13] LABS: HEMATOCRIT 36.5 % (42.0-52.0); HEMOGLOBIN 10.4 g/dl (14.0-18.0); MEAN CELL VOLUME 90.1 fl (80.0-94.0); MEAN CORPUSCULAR HGB 25.7 pg (27.0-31.0); MEAN CORPUSCULAR HGB CONC 28.5 g/dl (33.0-37.0); MEAN PLATELET VOLUME 10.4 fl (9.6-12.3); PLATELET COUNT AUTOMATED 178 10*3/uL (130-400); RED BLOOD COUNT 4.05 10*6/uL (4.50-5.90); WHITE BLOOD COUNT 14.4 10*3/uL (4.8-10.8)
[2019-12-08 08:29] LABS: BUN 21 mg/dl (7-24); CHLORIDE 93 mmol/L (98-107); CREATININE 1.28 mg/dL (0.70-1.30); POTASSIUM 4.3 mmol/L (3.5-5.1); SODIUM 135 mmol/L (136-145)
--- NOTE | 2019-12-08 08:30 | NUR ---
REGINALD LOPEZRUTHIE Mckoy [id number] Please refer to the physician's history and physical for past medical history, comorbid conditions, and allergies. Diagnosis: CHRONIC RESPIRATORY FAILURE CHF Valente Score: 15,AT RISK WOUND DESCRIPTIONS: Wound Number: 1 & 2 Location of the wound: RIGHT GROIN/MID ABD Type of wound: FUNGAL Thickness: Partial Size: 7.5cm X 10.5cm X 0.1cm Tunneling: NONE Undermining: NONE Sinus Tract: NONE Presence of Exudate: Serous Amount: Light Color: Red Odor: None Periwound Skin Appearance: Erythema Wound edges: APPROXIMATED Pain (associated with wound): DENIED AT TIME OF ASSESSMENT How does patient state this happened? PATIENT UNSURE HOW THIS HAPPENED. Wound Number: 3 Location of the wound: LEFT ELBOW Type of wound: SKIN TEAR Thickness: Partial Size: 4cm X 2.5cm X 0.1cm Tunneling: NONE Undermining: NONE Sinus Tract: NONE Presence of Exudate: Serous Amount: Light Color: Red Odor: None Periwound Skin Appearance: Erythema Wound edges: APPROXIMATED Pain (associated with wound): DENIED AT TIME OF ASSESSMENT How does patient state this happened? PATIENT UNSURE HOW THIS HAPPENED. Surface the patient is resting on: XPRT SKIN PREVENTION RECOMMENDATION: 1. Pressure redistribution support surface as appropriate 2. Elevate heels 3. Remove boots/TEDS every shift and reapply 4. Head of bed 30 degrees as tolerated 5. Assess nutrition and hydration 6. Manage moisture 7. Avoid the use of containment devices while in bed 8. Use absorptive products on surfaces limit layers of linens on bed 9. Turn and reposition every 1-2 hours in bed and every 1 hour in chair as tolerated 10. Weight shifts every 15 minutes while up in chair 11. Offloading with pillows or device to keep heels elevated off bed 12. Monitor skin at least every shift 13. Inspect under medical devices twice a day WOUND TREATMENT RECOMMENDATIONS: CONTINUE CURRENT ORDERS.
[2019-12-08 08:32] LABS: PLATELET SUFFICIENCY NORMAL (NORMAL); POLYCHROMASIA SLIGHT; STOMATOCYTE FEW; TOTAL CELLS COUNTED 100 #CELLS
--- NOTE | 2019-12-08 09:00 | NUR ---
DR WEBSTER IN TO SEE PT
--- NOTE | 2019-12-08 09:00 | NUR ---
Repairer Hairspring in to talk to patient. Patient states lives at home with his handicap sister. There are 0 steps in the home. Physician: [facility] Pharmacy: [facility] Home health services: [facility] 7 days, 2 hours daily week days and 3 hours daily weekends Patient's level of ADLs: MINIMAL ASSIST Patient has working utilities: yes DME: wheelchair, O2 @ 6L nc, portable O2 tanks, nebulizer, O2 supplier [facility] Follow-up physician's appointment after d/c: will be made by the hospitalist nurse director upon discharge Does patient want to access PORTAL?: no Discharge plan discussed with patient. He lives at home with his handicap sister. He is independent in his ADLs and gets around in a wheelchair. Discussed home health care services and he has [facility] 7 days a week, 2 hours daily on the weekdays and 3 hours daily on the weekend days Discussed short term SNF and he refuses. He states he needs a new nebulizer as the one he has at home takes about an hour to administer a treatment. Notified hospitalist nurse director. When medically stable he will be discharged to home with the resumption of his [facility]. He states his little brother will provide transportation on discharge. AMARI LÓPEZ
--- NOTE | 2019-12-08 09:40 | NUR ---
PT PLACED BACK ON BIPAP PER RN
--- NOTE | 2019-12-08 10:00 | NUR ---
DR CASTRO IN TO SEE PT
--- NOTE | 2019-12-08 11:00 | NUR ---
COMPLETE AM CARE AND SHAVE DONE
--- NOTE | 2019-12-08 13:48 | NUR ---
DR CASTRO UPDATED ON CONTINUED ST 113-115, DESPITE PO LOPRESSOR, ORDERS RECIEVED
[2019-12-08 14:23] LABS: ABG BASE EXCESS 9.8 mmol/L (-2.0-2.0); ARTERIAL BLOOD GAS PH 7.417 (7.35-7.45)
--- NOTE | 2019-12-08 17:18 | NUR ---
DR CASTRO UPDATED ON CONTINUED HR >100
--- NOTE | 2019-12-08 18:02 | NUR ---
TRANSFERRED TO [facility] VIA VENT BED
--- NOTE | 2019-12-08 19:00 | NUR ---
ASSUMED CARE FOR THIS PT AT THIS TIME. NO C/O VOICED. CALL LIGHT IN REACH.
--- NOTE | 2019-12-08 21:50 | NUR ---
PT MEDICATED W/TYLENOL FOR C/O CHRONIC LOWER BACK PAIN AND RESTORIL TO HELP PROMOTE SLEEP. REFUSED EYE OINTMENT AT THIS TIME. CALL LIGHT IN REACH.
[2019-12-09] VITALS (10 sets, daily range): BP systolic 92–135; BP diastolic 53–86
--- NOTE | 2019-12-09 01:42 | NUR ---
24 HR chart check completed.
--- NOTE | 2019-12-09 04:05 | NUR ---
Recommend follow up for wound care in outpatient setting patient refused at this time.
[2019-12-09 06:14] LABS: HEMATOCRIT 34.3 % (42.0-52.0); HEMOGLOBIN 9.8 g/dl (14.0-18.0); MEAN CELL VOLUME 89.1 fl (80.0-94.0); MEAN CORPUSCULAR HGB 25.5 pg (27.0-31.0); MEAN CORPUSCULAR HGB CONC 28.6 g/dl (33.0-37.0); MEAN PLATELET VOLUME 10.7 fl (9.6-12.3); NUCLEATED RED BLOOD CELL 0.1 % (0.0-0.0); PLATELET COUNT AUTOMATED 197 10*3/uL (130-400); RED BLOOD COUNT 3.85 10*6/uL (4.50-5.90); RED CELL DISTRI WIDTH 16.1 % (0-14.5); WHITE BLOOD COUNT 14.3 10*3/uL (4.8-10.8)
[2019-12-09 06:39] LABS: TOTAL CELLS COUNTED 100 #CELLS
[2019-12-09 06:40] LABS: PLATELET SUFFICIENCY NORMAL (NORMAL); POLYCHROMASIA SLIGHT; STOMATOCYTE FEW
[2019-12-09 06:43] LABS: BUN 27 mg/dl (7-24); CHLORIDE 95 mmol/L (98-107); CREATININE 1.33 mg/dL (0.70-1.30); POTASSIUM 4.9 mmol/L (3.5-5.1); SODIUM 132 mmol/L (136-145)
--- NOTE | 2019-12-09 07:18 | NUR ---
PT ON BIPAP ABG DRAWEN. DID CHECK AND TOOK PT OFF AND PLACED ON 6LNC. WILL REPEAT ABGS IN ONE HR PER DR WEBSTER
[2019-12-09 07:21] LABS: ARTERIAL BLOOD GAS PH 7.405 (7.35-7.45)
[2019-12-09 08:45] LABS: ABG BASE EXCESS 8.6 mmol/L (-2.0-2.0); ARTERIAL BLOOD GAS PH 7.378 (7.35-7.45)
--- NOTE | 2019-12-09 09:00 | NUR ---
Housing Manager in to see patient. No new needs or request at this time. He states he wants to go home after discharge as his disable little sister that he lives with also has been recently diagnosed with cancer and he wants to be there with her because her time is short. He does currently have [employer] and would like to resume those services upon discharge. Discussed home health care services upon discharge and he is agreeable. He states he doesn't want therapy if it is the same therapist that he had when he was discharged from [facility] in September because he was mean. When provided with a list of agencies he chose [facility]. Hospitalist nurse director notified. When medically stable he will be discharged to home with [facility] and the resumption of his [employer].
--- NOTE | 2019-12-09 09:30 | NUR ---
PT RESTING IN BED. TOLERATED ROUTINE MED WITH NO PROBLEM. C/O HEADACHE, RATES PAIN 7 ON PAIN SCALE 0-10. MEDICATED WITH TYLENOL PO PE RPRN ORDER, SEE EMAR. CALL LIGHT IN REACH.
--- NOTE | 2019-12-09 10:00 | NUR ---
PT SLEEPING IN BED. RESP-EASY AND REGULAR. BIPAP IN USE. CALL LIGHT IN REACH.
--- NOTE | 2019-12-09 10:57 | NUR ---
DECREASED CARDIZEM DTT TO 5MG/HR. HR-60'S LAST BP 108/56 MANUALLY.
--- NOTE | 2019-12-09 11:04 | NUR ---
DR. CASTRO ON THE FLOOR AWARE OF BP'S AND HR 60-70'S. D/C SEVERIANO HAYWARD.
--- NOTE | 2019-12-09 11:45 | NUR ---
PT BSG-230, SEE EMAR. NO C/O AT THIS TIME. OXYGEN IN USE. CALL LIGHT IN REACH.
--- NOTE | 2019-12-09 11:51 | NUR ---
PT NOT ON BIPAP AT THIS TIME. АНДРЕЙ CALLED AT 1000 THIS MORNING TO CHANGE PTS TIDAL VOLUME ON HIS TRILOGY TO [address] WEBSTER
--- NOTE | 2019-12-09 14:00 | NUR ---
RESTING IN BED. RESP-EASY AND REGULAR. NO C/O AT THIS TIME. TOLERATED ROUTINE MED WITH NO PROBLEM. CALL LIGHT IN REACH.
--- NOTE | 2019-12-09 16:20 | NUR ---
PT RESTING IN BED. RESP-EASY AND REGULAR. OXYGEN IN USE. CALL LIGHT IN REACH.
--- NOTE | 2019-12-09 20:30 | NUR ---
TOLERATING IV MEDICATION. NO C/O AT THIS TIME. OXYGEN IN USE. CALL LIGHT IN REACH. SEE SHIFT ASSESSMENT.
--- NOTE | 2019-12-09 22:10 | NUR ---
PT ASSISTED UP TO BSC AND BACK TO BED. BSG-271, SEE EMAR. TOLERATED ROUTINE MED WITH NO PROBLEM. PT C/O HEADACHE REQUESTING TYLENOL MEDICATED PER EMAR. ALSO REQUESTING SLEEPING PILL. MEDICATED WITH RESTORIL PO PER PRN ORDER, SEE EMAR. CALL LIGHT IN REACH. OXYGEN IN USE.
--- NOTE | 2019-12-09 23:30 | NUR ---
PT RESTING IN BED. ASSESSMENT COMPLETE. NO COMPLAINTS AT THIS TIME. PT STATES TYLENOL WAS SOMEWHAT EFFECTIVE AND HE IS GETTING SLEEPY NOW, RESTORIL EFFECTIVE. CALL LIGHT WITHIN REACH. WILL CONTINUE TO MONITOR.
[2019-12-10] VITALS: BP 115/69
[2019-12-10 08:00] VITALS: BP 118/68
--- NOTE | 2019-12-10 08:30 | NUR ---
PT RESTING IN BED. RESP-EASY AND REGULAR. OXYGEN IN USE. TOLERATED ROUTINE MED WITH NO PROBLEM. NO C/O AT THIS TIME. CALL LIGHT IN REACH. SEE SHIFT ASSESSMENT.
--- NOTE | 2019-12-10 09:45 | NUR ---
Dr. Sesay stopped in office to discuss patient is agreeable to SNF. Tmh Teacher in to see patient. Discussed short term SNF and he doesn't want to go. He wants to go home with his sister who can pass any day from cancer. He states he feels like he will be safe at home. He has his wheelchair that he gets around in at home. He has [employer] that cooks his breakfast and lunch. He has 2 urinals at his bedside in case he needs them through the night. He is afraid that his sister, Raissa, will pass when he is in a SNF. He stated the last time he went to SNF it was supposed to be for a couple of days and it was for 2.5 months. Explained he would have to be in a SNF for at least a week. He request to go home with resumption of his [employer] 2 hours on the weekdays and 3 hours on the weekends along with [facility] nursing and therapy.
--- NOTE | 2019-12-10 10:55 | NUR ---
Physical Therapy evaluation completed full evaluation to follow. Recommend physical therapy per plan of care and home w HH upon discharge. Thank you for this referral. Monica Wright PT
--- NOTE | 2019-12-10 11:30 | NUR ---
JUAN M HERNANDEZ ON. DELANO DISCONTINUED PER ORDER. PT TOLERATED. HOME C-PAP ON. NO C/O AT THIS TIME. CALL LIGHT IN REACH.
[2019-12-10 12:00] VITALS: BP 127/88
[2019-12-10 16:00] VITALS: BP 117/93
--- NOTE | 2019-12-10 16:10 | NUR ---
RESTING IN BED. BSG-270, SEE EMAR. NO C/OAT THIS TIME. CALL LIGHT IN REACH.SEE SHIFT ASSESSMENT.
[2019-12-10 20:00] VITALS: BP 111/83
--- NOTE | 2019-12-10 20:02 | NUR ---
SITTING UP ON THE SIDE OF THE BED. BIPAP INTACT. HEP LOCK'S INTACT BIALTERAL ARMS. NO DISTRESS NOTED. NO C/O'S VOICED. HAS VOIDED SONCE EARLIER WICK REMOVAL. URINAL AT BEDSIDE.
--- NOTE | 2019-12-10 21:38 | NUR ---
2120 MEDICATED WITH RESTORIL PO FOR SLEEP AND TYLENOL 2 PO FOR C/O'S GENERALIZED DISCOMFORT. WILL MONITOR.
--- NOTE | 2019-12-10 22:02 | NUR ---
RESTING IN BED WITH BIPAP INTACT.
--- NOTE | 2019-12-10 22:44 | NUR ---
EARLIER TYLENOL AND RESTORIL EFFECTIVE.
[2019-12-11] VITALS: BP 141/96
--- NOTE | 2019-12-11 02:02 | NUR ---
RESTING IN BED WITH EYES CLOSED. APPEARS TO BE SLEEPING. BIPAP INTACT.
--- NOTE | 2019-12-11 04:18 | NUR ---
REMAINS SLEEPING WIHTOUT DISTRESS.
--- NOTE | 2019-12-11 06:03 | NUR ---
0530 AWAKE. COMPLETE BED BATH GIVEN AND LINENS CHANGED. BIPAP REMOVED PER PT REQUEST AND PT PLACED ON NC. [place]. 0600 RESTING IN BED WIHTOUT C/O'S. CALL LIGHT IN REACH.
[2019-12-11 06:35] LABS: BASO % 0.1 % (0.0-1.0); HEMATOCRIT 40.5 % (42.0-52.0); HEMOGLOBIN 11.5 g/dl (14.0-18.0); LYMPH # 0.7 10*3/uL (1.3-4.4); LYMPH % 3.9 % (27.0-41.0); MEAN CELL VOLUME 89.8 fl (80.0-94.0); MEAN CORPUSCULAR HGB 25.5 pg (27.0-31.0); MEAN CORPUSCULAR HGB CONC 28.4 g/dl (33.0-37.0); MEAN PLATELET VOLUME 10.5 fl (9.6-12.3); MONO # 0.8 10*3/uL (0.1-1.0); MONO % 4.7 % (3.0-9.0); NEUT # 16.1 10*3/uL (2.3-7.9); NEUT % 89.9 % (47.0-73.0); PLATELET COUNT AUTOMATED 251 10*3/uL (130-400); RED BLOOD COUNT 4.51 10*6/uL (4.50-5.90); RED CELL DISTRI WIDTH 16.2 % (0-14.5); WHITE BLOOD COUNT 17.8 10*3/uL (4.8-10.8)
[2019-12-11 06:59] LABS: BUN 30 mg/dl (7-24); CHLORIDE 96 mmol/L (98-107); CREATININE 1.44 mg/dL (0.70-1.30); SODIUM 137 mmol/L (136-145)
[2019-12-11 08:00] VITALS: BP 123/84
--- NOTE | 2019-12-11 08:11 | NUR ---
PT RESTING IN BED. NO DISTRESS NOTED. WILL MONITOR
--- NOTE | 2019-12-11 08:30 | NUR ---
Art Director in to see patient. No new needs or request at this time. When medically stable he will be discharged to home with the resumption of his [employer] and new [facility].
--- NOTE | 2019-12-11 11:30 | NUR ---
PHYSICAL THERAPY Patient was supine in bed this am when approached for therapy and reports not feeling well while on his BiPap. Patient request to be seen this pm and will continue per POC with all therapy goals as tolerated. Nathen Gee, MULTIM[employer] AUTHOR
[2019-12-11 12:00] VITALS: BP 113/84
--- NOTE | 2019-12-11 12:55 | NUR ---
PHYSICAL THERAPY Patient was resting supine in bed and still on BiPap at this time. Will continue per POC as able. Nathen Gee, GOODYEAR WELTER
[2019-12-11 16:03] VITALS: BP 115/85
--- NOTE | 2019-12-11 20:30 | NUR ---
TRANSFERRED TO ROOM 509 FROM [facility] WITH BELONGINGS. PATIENT ALERT AND ORIENTED X 3. O2 6L NC IN USE. NO ACUTE DISTRESS NOTED. LUNG SOUND WHEEZING NOTED. EDEMA ALL OVER. RASH IN GROIN FOLDS.
[2019-12-11 20:43] VITALS: BP 116/62
--- NOTE | 2019-12-11 22:11 | NUR ---
RESTORIL GIVEN PER ORDER FOR INSOMNIA PER PT. REQUEST. AND TYLENOL GIVEN FOR GENERALIZED PAIN RATED "5" PER PT. SEE MAR.
--- NOTE | 2019-12-11 23:10 | NUR ---
RESTORIL AND TYLENOL EFFECTIVE FOR INSOMNIA AND GENERALIZED DISCOMFORT PER PT. PT. DROWSY. BIPAP IN USE.
[2019-12-12] VITALS: BP 96/60
--- NOTE | 2019-12-12 04:48 | NUR ---
24 HR chart check completed.
--- NOTE | 2019-12-12 06:10 | NUR ---
REGINALD LOPEZRUTHIE Ean [id number] Please refer to the physician's history and physical for past medical history, comorbid conditions, and allergies. Diagnosis: CHRONIC RESPIRATORY FAILURE CHF Valente Score: 14,MODERATE RISK WOUND DESCRIPTIONS: Wound Number: 4 Location of the wound: left forearm Type of wound: skin tear Thickness: Partial Size: 0.2cm x 0.4cm x 0.1cm Tunneling: none Undermining: none Sinus Tract: none Presence of Exudate: Sanguineous Amount: Light Color: Red Odor: None Periwound Skin Appearance: Normal Wound edges: approximated Pain (associated with wound): none at time of assessment How does patient state this happened? pt stated he removed tape from his arm causing the tear in her skin Surface the patient is resting on: XPRT SKIN PREVENTION RECOMMENDATION: 1. Pressure redistribution support surface as appropriate 2. Elevate heels 3. Remove boots/TEDS every shift and reapply 4. Head of bed 30 degrees as tolerated 5. Assess nutrition and hydration 6. Manage moisture 7. Avoid the use of containment devices while in bed 8. Use absorptive products on surfaces limit layers of linens on bed 9. Turn and reposition every 1-2 hours in bed and every 1 hour in chair as tolerated 10. Weight shifts every 15 minutes while up in chair 11. Offloading with pillows or device to keep heels elevated off bed 12. Monitor skin at least every shift 13. Inspect under medical devices twice a day WOUND TREATMENT RECOMMENDATIONS: Skin tear guidelines: Cleanse left forearm with nss and apply sureprep around the wound hydrogel to wound bed and cover with optifoam gentle.
--- NOTE | 2019-12-12 06:11 | NUR ---
PATIENT PULLED TAPE OFF AND OBTAINED SKIN TEAR
--- NOTE | 2019-12-12 06:11 | NUR ---
GROUND DEFENCE OFFICER MADE AWARE OF SKIN TEAR
--- NOTE | 2019-12-12 06:19 | NUR ---
DR. GUADALUPE MADE AWARE OF SKIN TEAR TO ARM
[2019-12-12 08:00] VITALS: BP 100/59
--- NOTE | 2019-12-12 08:28 | NUR ---
Medicated with tylenol per prn order for complaints of pain to lower back. Pt states it is chronic pain and rates 7/.
--- NOTE | 2019-12-12 08:30 | NUR ---
PHYSICAL THERAPY Patient presented to therapy in supine in bed with head of bed elevated and 6 liters of spO2 via nasal canula. Patient gives informed consent for treatment. Patient was identified by name and on wristband. Patient saYS HE DOES NOT WANT to stand or walk because his feet are painful and it is worse when he stands. Patient transferred supine to sitting on EOB with SBA. Patient sat on EOB with SBA. Patient performed bilateral LE therapeutic exercises 2 x 10 reps each in all planes of movement for strengthening the LEs in order to improve patient's functional mobility. Patient performed LAQs, marches, heel/toe raises and hip abduction in sititng on EOB. Patient O2 SAT was recorded as 98% and pulse 114. Patient was left sitting on EOB with call light within reach and tray table in front of patient. Patient was 1:1 with this THERMOMETER PRODUCTION WORKER for 15 minutes total. [place] AMIN THERMOMETER PRODUCTION WORKER
--- NOTE | 2019-12-12 09:30 | NUR ---
States that tylenol helped to relieve back pain.
[2019-12-12] MEDS ORDERED: METOPROLOL SUC100 M1 PO (09:37)
[2019-12-12] MEDS ORDERED: METOPROLOL SUCC50 M1 PO ×2 (09:37→11:48)
[2019-12-12] MEDS ORDERED: ALDACTONE25 MG PO (09:37)
[2019-12-12] MEDS ORDERED: BUMETANIDE1 MG PO (09:38)
--- NOTE | 2019-12-12 11:00 | NUR ---
Discharge instructions reviewed with patient/family. Patient receptive and verbalizes understanding. Follow-up care arranged. Written instructions given to patient/brother. EVELIA CORDOVA
--- NOTE | 2019-12-12 11:08 | NUR ---
Pt dc in care of brother, dc with belongings and cpap from home.
--- NOTE | 2019-12-12 11:47 | NUR ---
Spoke to Brittney at [facility] regarding referral. Faxed clinical to [facility]. Brittney will return call to let CM know if patient has been accepted or not.
--- NOTE | 2019-12-12 13:00 | NUR ---
PHYSICAL THERAPY CO-SIGN I approve of the Physical Therapy notes written above. Monica Wright PT
== END 2019-12-12 11:08 | disposition home or self-care (01) | DRG 951 ==
LOC: ED 15:16 → ICCU 17:30 → EDHOLD 17:30 → ICCU 17:44 → 4E 12-08 18:17 → 5E 12-11 19:27
PROVIDERS: Emergency Medicine; Family Medicine; Internal Medicine; Internal Medicine Critical Care Medicine; Student in an Organized Health Care Education/Training Program; ADMIT Internal Medicine
PROC: 5A09457 Assistance with Respiratory Ventilation, 24-96 Consecutive Hours, Continuous Positive Airway Pressure (ICD-10-PCS; principal; 2019-12-06)
PROC: 5A09457 Assistance with Respiratory Ventilation, 24-96 Consecutive Hours, Continuous Positive Airway Pressure (ICD-10-PCS; 2019-12-10)
PROC: 5A09357 Assistance with Respiratory Ventilation, Less than 24 Consecutive Hours, Continuous Positive Airway Pressure (ICD-10-PCS; 2019-12-12)
DX: Z83.6 Family history of other diseases of the respiratory system (principal); A41.9 Sepsis, unspecified organism; N17.0 Acute kidney failure with tubular necrosis; I50.33 Acute on chronic diastolic (congestive) heart failure; J96.21 Acute and chronic respiratory failure with hypoxia; J96.22 Acute and chronic respiratory failure with hypercapnia; R65.20 Severe sepsis without septic shock; J44.1 Chronic obstructive pulmonary disease with (acute) exacerbation; E87.1 Hypo-osmolality and hyponatremia; Z68.43 Body mass index [BMI] 50.0-59.9, adult; E87.3 Alkalosis; I13.0 Hypertensive heart and chronic kidney disease with heart failure and stage 1 through stage 4 chronic kidney disease, or unspecified chronic kidney disease; L30.4 Erythema intertrigo; E11.65 Type 2 diabetes mellitus with hyperglycemia; I48.0 Paroxysmal atrial fibrillation; E87.8 Other disorders of electrolyte and fluid balance, not elsewhere classified; E66.01 Morbid (severe) obesity due to excess calories; E55.9 Vitamin D deficiency, unspecified; R31.9 Hematuria, unspecified; G47.33 Obstructive sleep apnea (adult) (pediatric); D64.9 Anemia, unspecified; N18.9 Chronic kidney disease, unspecified; I25.10 Atherosclerotic heart disease of native coronary artery without angina pectoris; E11.22 Type 2 diabetes mellitus with diabetic chronic kidney disease; Z79.899 Other long term (current) drug therapy; Z99.81 Dependence on supplemental oxygen; Z79.4 Long term (current) use of insulin; Z79.82 Long term (current) use of aspirin; Z79.01 Long term (current) use of anticoagulants; Z90.49 Acquired absence of other specified parts of digestive tract; Z95.2 Presence of prosthetic heart valve; Z87.891 Personal history of nicotine dependence; Z83.3 Family history of diabetes mellitus; Z82.49 Family history of ischemic heart disease and other diseases of the circulatory system; Z80.0 Family history of malignant neoplasm of digestive organs; Z80.8 Family history of malignant neoplasm of other organs or systems

== ENCOUNTER 2020-01-06 08:54 | Emergency (ER) | payer MEDICARE, MEDICAID ==
[~2020-01-06 08:54] MED LIST changes: +ALDACTONE25 MG PO; +METOPROLOL SUC100 M1 PO; +METOPROLOL SUCC50 M1 PO
[2020-01-06 11:13] LABS: BILIRUBIN 1+ (NEGATIVE); BLOOD 3+ (NEGATIVE); CLARITY CLOUDY (CLEAR); COLOR YELLOW (YELLOW); GLUCOSE 1+ (NEGATIVE); KETONE NEGATIVE (NEGATIVE)
[2020-01-06 11:14] LABS: LEUKO ESTERASE NEGATIVE (NEGATIVE); NITRITE NEGATIVE (NEGATIVE); UROBILINOGEN 0.2 E.U./dl (0.2-1.0)
[2020-01-06 11:25] LABS: RBC TNTC rbc/hpf (0-2)
[2020-01-06 11:26] LABS: BACTERIA 3+; WBC 41-50 wbc/hpf (0-5)
== END 2020-01-06 14:17 | disposition expired ==
LOC: ED 08:54
PROVIDERS: Emergency Medicine
DX: I46.9 Cardiac arrest, cause unspecified (principal); J45.909 Unspecified asthma, uncomplicated; I11.0 Hypertensive heart disease with heart failure; I50.9 Heart failure, unspecified; E78.00 Pure hypercholesterolemia, unspecified; I48.91 Unspecified atrial fibrillation; F32.9 Major depressive disorder, single episode, unspecified; E11.9 Type 2 diabetes mellitus without complications; Z87.891 Personal history of nicotine dependence; Z79.899 Other long term (current) drug therapy; Z79.2 Long term (current) use of antibiotics; Z79.4 Long term (current) use of insulin; Z79.82 Long term (current) use of aspirin